=== PATIENT | male | born 1945 | race Caucasian/White ===

== ENCOUNTER 2024-11-27 12:42 | Outpatient (AMB) | payer OTHER, SELFPAY ==
--- NOTE | 2024-11-27 12:50 | A.OFFVIS_ITS ---
Vital Signs 11/27/24 12:51 Height 5 ft 10 in Weight 211 lb BMI 30.3 BP 118/72 Blood Pressure Location Rt brachial Position Sitting Intake Visit Reasons: R-SB-Idwnlui, unspecified Intake Note: Patient presents for tremors Allergies No Known Allergies Allergy (Verified 11/27/24 12:52) Medication List - Last Reconciled 11/27/24 by Noreen Dalton MD albuterol sulfate 90 mcg/actuation 1 inh inhalation QID atorvastatin 40 mg PO DAILY betamethasone dipropionate 0.05% topical DAILY ferrous sulfate (Feosol) 325 mg PO DAILY fluticasone propion-salmeterol 500-50 mcg/dose 1 inh inhalation BID ipratropium-albuterol 0.5 mg-3 mg(2.5 mg base)/3 mL 3 mL inhalation Q6H PRN lisinopril 5 mg PO DAILY mecobalamin (vitamin B12) 1,000 mcg PO DAILY omeprazole 20 mg PO DAILY sildenafil 50 mg PO DAILY PRN zafirlukast 20 mg PO BID HPI Comments Details: 79y/o Right handed male comes for evaluation of tremors. He started noticing tremors in both hands R>L about 5 years ago. He had a fall last summer and felt like his left foot was stuck and did not move. He feels his balance is worse and uses his cane more. The tremors are mostly at posture and action. He also has some leg tremors He has some trouble with handwriting, eating, drinking coffee, dressing etc. No change in voice. No memory issues. SLeep- has sleep apnea- uses CPAP- his does not like him using CPAP. Mood is stable He has urinary frequency and urgency.No family h/o tremors [facility] Medical History (Updated 11/27/24 @ 13:20 by Noreen Dalton MD) Coarse tremors Gait abnormality Tremor Ulcerative colitis Osteoarthritis FRANCESCA (obstructive sleep apnea) Mental disorder B-complex deficiency Fatty liver HTN (hypertension) BPH (benign prostatic hyperplasia) Surgical History Hx of cholecystectomy Social History Alcohol intake: never Patient Tobacco Use Status: Never used Tobacco Physical Exam Vital Signs: Last Vital Signs BP 118/72 11/27/24 12:51 BMI result Body Mass Index 30.3 Const General: cooperative and comfortable Nutritional Appearance: average body habitus Orientation/consciousness: patient oriented x3 Eyes Pupils: Equal, round and reactive pupils present Neuro Other: Nick UE postural and action tremors - mild R>L Mild cog wheel rigidity R>L FFM decreased nick Foot taps deverely decreased Gait- stooped , slow , small steps, symmetric arm swings General: patient oriented x3, moves all extremities and no focal motor deficits Cranial nerves: Yes Facial sensation intact/muscles of mastication intact, Yes Equal, round and reactive pupils present, Yes Bilaterally intact EOM present, Yes Nystagmus not present, Yes Normal facial strength present and Yes Midline tongue present Cognition (Neuro): normal cognition Gait exam (Neuro): Antalgic gait present Motor exam (neuro): 5/5 motor strength present throughout Deep tendon reflexes (DTR's): Right triceps reflex intensity grade: 3+, Left triceps reflex intensity grade: 3+, Rt Biceps (C5, C6): 2+, Left biceps reflex intensity grade: 2+, Right brachioradialis reflex intensity grade: 2+, Left brachioradialis reflex intensity grade: 2+, Right patellar reflex intensity grade: 2+ and Left patellar reflex intensity grade: 2+ Coordination: [id number] test normal Assessment & Plan Assessment & Plan (1) Coarse tremors: Comment: ? parkinsonism exaggerated physiologic tremors Code(s): G25.2 - Other specified forms of tremor Category: Medical (2) Gait abnormality: Comment: Multifactorial , musculoskeletal and neurological Code(s): R26.9 - Unspecified abnormalities of gait and mobility Category: Medical Plan MRI Brain I will trial him on carbidopa/levodopa 25/100 bid PT for gait training Orders: Orders PT Evaluation and Treatment Today R26.9 - Unspecified abnormalities of gait and mobility MR head/brain wo con Today G25.2 - Other specified forms of tremor, R26.9 - Unspecified abnormalities of gait and mobility Medications: New carbidopa-levodopa 25-100 mg (Sinemet) 1 tab PO BID 60 tabs 4RF Coding Level of Care Code New Pt Level 4 (34695) Complex EM visit Add On G2211 Diagnoses Coarse tremors G25.2 Gait abnormality R26.9
[2024-11-27 12:51] VITALS: BP 118/72; BMI 30.3
--- OUTSIDE RECORDS SUMMARY | 2024-11-27 16:36 | XMS_ITS ---
Author Name [facility] [place] Organization [facility] [employer] [place] Address [address] [place] [address] Care Team Providers Care Sketch Maker Name Role Phone YESICA HAY Primary Care Provider [facility] Insurance Providers: All historical and current Section Date Range: From patient's date of to the date document was created. This section includes the names of all active insurance providers for the patient. Insurance Provider Type of Coverage Plan Name Start of Policy Coverage End of Policy Coverage Group Number Member ID Insurance Provider's Telephone Number Policy Haque's Name Patient's Relationship to Policy Haque [employer] PLAN MEDICARE SUPPLEMEN JARED Aug 29, 2014 PLANMY [id number] [phone] FR ZACH ANCIS PATIENT AARP MED SUPP MEDICARE SUPPLEMEN JARED PLAN MY Aug 29, 2014 PLANMY [id number] [phone] FR ZACH ANCIS PATIENT AARP MED SUPP MEDICARE SUPPLEMEN JARED Aug 29, 2014 PLANMY [id number] [phone] FR ZACH ANCIS PATIENT AARP MED SUPP MEDICARE SUPPLEMEN JARED PLANM Y Aug 29, 2014 PLANMY [id number] [phone] FR ZACH ANCIS PATIENT AARP MED SUPP MEDICARE SUPPLEMEN JARED PLAN MY Aug 29, 2014 PLANMY [id number] [phone] FR ZACH ANCIS PATIENT MEDICARE (WNR) MEDICARE (M) PART B Apr 28, 2013 PART B [id number] [phone] FR ZACH ANCIS PATIENT MEDICARE (WNR) MEDICARE (M) PART B Apr 28, 2013 PART B [id number] [phone] FR BENSON SERRANO PATIENT MEDICARE (WNR) MEDICARE (M) PART B Apr 28, 2013 PART B [id number] [phone] FR BENSON SERRANO PATIENT MEDICARE (WNR) MEDICARE (M) PART A Aug 29, 2012 PART A [id number] [phone] FR BENSON SERRANO PATIENT MEDICARE (WNR) MEDICARE (M) PART A Aug 29, 2012 PART A [id number] [phone] FR BENSON SERRANO PATIENT MEDICARE (WNR) MEDICARE (M) PART A Aug 29, 2012 PART A [id number] [phone] FR BENSON SERRANO PATIENT Selected Encounter This section includes the information on record at [place] for the Encounter. Date/Time Encounter Type Encounter Description Reason Provider Source Nov 05, 2024 11:00 AM OFFICE O/P EST HI 40 MIN PRIMARY CARE/MEDICINE ICD-10-CM R25.1 Tremor, unspecified AMOS HAY AM Encounter Template Text not used by [place] Assessments - Encounter Diagnoses This section includes the primary and secondary diagnoses documented for the Encounter. Date/Time Primary/Secondary Diagnosis Diagnosis Name Provider Source Nov 26, 2024 02:57 PM PRIMARY Tremor, unspecified HAY,WILL AMBROSE J [place] [facility] [place] [facility] Nov 26, 2024 02:57 PM SECONDARY Essential (primary) hypertension HAY,WILL AMBROSE J [place] [facility] [place] [facility] Nov 26, 2024 02:57 PM SECONDARY Fatty (change of) liver, not elsewhere classified HAY,WILL AMBROSE J [place] [facility] [place] [facility] Nov 26, 2024 02:57 PM SECONDARY Moderate persistent asthma, uncomplicated HAY,WILL [facility] Nov 26, 2024 02:57 PM SECONDARY Obstructive sleep apnea (adult) (pediatric) HAY,WILL AMBROSE [place] [facility] Nov 26, 2024 02:57 PM SECONDARY Osteoarthritis of hip, unspecified HAY,WILL AMBROSE [place] [facility] Plan of Treatment: Future Appointments (+ 6 months) and Future Tests (+/- 45 days) The Plan of Treatment section includes future care activities for the patient from [facility] [place] [facility] This section includes future appointments and future orders which are active, pending or scheduled. Future Appointments This section includes appointments that were scheduled to occur 6 months from the date of the Encounter, up to a maximum of 20 appointments. The data comes from all [facility]. Appointment Date/Time Appointment Type Appointme nt Facility Name Nov 06, 2024 10:00 AM AMBULATORY - MEDICINE [facility] Nov 27, 2024 01:00 PM [facility] Jan 02, 2025 09:45 AM AMBULATORY - NONE [facility] Apr 13, 2025 10:00 AM AMBULATORY - MEDICINE [facility] Active, Pending, and Scheduled Orders This section includes a listing of several types of active, pending, and scheduled orders, including clinic medications orders, diagnostic test orders, procedure orders and consult orders; where the start date of the order is 45 days before the date of the Encounter or 45 days after the date of theEncounter. The data comes from all [facility]. Test Date/Time Test Type Test Details Facility Name Nov 10, 2024 11:21 AM Consult Order [facility] Cons Office Manager Receptionist's Choice [facility] Lab Results: +/- 30 days of the encounter This section includes the Chemistry and Hematology Lab Results on record with [place] for the patient. Radiology Reports and Pathology Reports are provided separately, in subsequent sections. Lab Results This section contains the Chemistry/Hematology Results that were resulted 30 days before or 30 daysafter the date of the Encounter. Date/Time Source Result Type Result - Unit Interpretation Reference Range Comment Oct 31, 2024 09:09 AM [facility] FERRITIN Specimen Type: SERUM No comment entered. Ordering Provider: JIAN HAY Report Released Date/Time: Oct 20, 2024 01:26 PM Reporting Lab: [facility] [address] [address] Performing Lab: [address] [address] FERRITIN 4 ng/mL L 20-300 Oct 31, 2024 09:09 AM [facility] VITAMIN B12 Specimen Type: SERUM No comment entered. Ordering Provider: JIAN HAY Report Released Date/Time: Oct 20, 2024 01:26 PM Reporting Lab: [address] [address] Performing Lab: [address] [address] VITAMIN B12 623 pg/mL 200-900 Oct 31, 2024 09:09 AM [facility] LIPID PANEL, NON FASTING Specimen Type: SERUM No comment entered. Ordering Provider: JIAN HAY Report Released Date/Time: Oct 20, 2024 01:26 PM Reporting Lab: [address] [phone] Performing Lab: [address] [address] CHOLESTEROL 153 mg/dL TRIGLYCERIDE 138 mg/dL 0-150 LDL calculated 87 mg/dL 0-129 CHOL/HDL 4.0 HDL CHOLESTEROL 38 mg/dL L 40-60 Oct 31, 2024 09:09 AM [facility] LIVER FUNCTION Specimen Type: SERUM No comment entered. Ordering Provider: JIAN HAY Report Released Date/Time: Oct 20, 2024 01:26 PM Reporting Lab: [address] [address] Performing Lab: [address] [address] PROTEIN,TOTAL 6.8 g/dL 6.0-8.3 ALBUMIN 3.8 g/dL 3.5-5.0 ALKALINE PHOSPHATASE 91 U/L 40-150 AST 20 U/L 5-34 ALT 19 U/L BILIRUBIN, TOTAL 0.5 mg/dL 0.2-1.2 Oct 31, 2024 09:09 AM [facility] BASIC METABOLIC PANEL (non-fasting) Specimen Type: SERUM No comment entered. Ordering Provider: JIAN HAY Report Released Date/Time: Oct 20, 2024 01:26 PM Reporting Lab: [address] [address] Performing Lab: [address] [address] UREA NITROGEN 19 mg/dL 7-25 GLUCOSE 105 mg/dL H 65-100 SODIUM 139 mmol/L 135-145 POTASSIUM 4.3 mmol/L 3.5-5.0 CHLORIDE 104 mmol/L 100-110 CO2 26 meq/L 20-30 CREATININE, Serum 1.11 mg/dL 0.50-1.40 eGFR(CKD-EPI 2020) 68 mL/min >60 Oct 31, 2024 09:09 AM [facility] CBC Specimen Type: BLOOD No comment entered. Ordering Provider: JIAN HAY Report Released Date/Time: Oct 20, 2024 01:26 PM Reporting Lab: [address] [address] Performing Lab: [address] [address] WBC 9.45 10*3/uL 4.50-11.00 RBC 3.91 10*6/uL L 4.23-5.66 HGB 10.9 g/dL L 12.8-17 HCT 34.3 L 39.2-50.4 MCV 87.7 fL 82-99 MCHC 31.8 g/dL 30.8-35.1 PLT 262 10*3/uL 140-360 RDW-CV 15.0 12.0-16.0 MCH 27.9 pg 26.2-32.6 Oct 31, 2024 09:09 AM [facility] IRON & TIBC PANEL Specimen Type: SERUM No comment entered. Ordering Provider: JIAN HAY Report Released Date/Time: Oct 20, 2024 01:26 PM Reporting Lab: [facility] [address] [phone] Performing Lab: [facility] [address] [phone] TIBC 428 ug/dL 204-475 IRON 40 ug/dL 40-160 Transferrin Saturation 9.4 L 20.0-50.0 Transferrin (TRF) 324 mg/dL 200-360 Vital Signs: All taken on the encounter date This section contains inpatient and outpatient Vital Signs collected on the date of the Encounter. Date/Time Temperature Pulse Blood Pressure Respiratory Rate SP02 Pain Height Weight Body Mass Index Source Nov 05, 2024 10:44 AM 98.1 98 126/72 20 99 6 69 210 31 [facility] Social History: Smoking Status (Most current) and Tobacco Use (All prior to encounter date) This section includes the most current, and the historical, smoking and tobacco- related health factors from the [place] facility where the Encounter took place. Current Smoking Status This section includes the most current smoking, or tobacco-related health factor, from the [place] facility where the Encounter took place. Date/Time Current Smoking Status Comment Ángel ity May 05, 2024 10:00 AM VA-TOBACCO FORMER USER [facility] Tobacco Use History This section includes a history of the smoking, or tobacco-related health factors, that were collected on or before the date of the Encounter. The data comes from the [place] facility where the Encounter took place. Date/Time Smoking Status/Tobacco Use Comment F acility May 05, 2024 10:00 AM VA-TOBACCO QUIT 15 YRS OR MORE [place] [facility] [place] [facility] May 03, 2023 02:00 PM VA-TOBACCO FORMER USER [place] [facility] [place] [facility] May 03, 2023 02:00 PM VA-TOBACCO QUIT [facility] May 10, 2022 01:00 PM [facility]BACCO [facility] [place] [facility] May 10, 2022 01:00 PM VA-TOBACCO QUIT 15 YRS OR MORE [facility] [place] [facility] Apr 13, 2021 09:30 AM VA-TOBACCO FORMER USER [facility] [place] [facility] Apr 13, 2021 09:30 AM VA-TOBACCO QUIT 15 YRS OR MORE [facility] [place] [facility] Feb 04, 2020 11:32 AM VA-TOBACCO FORMER USER [facility] [place] [facility] Feb 04, 2020 11:32 AM VA-TOBACCO QUIT 15 YRS OR MORE [facility] [place] [facility] March 11, 2019 03:07 PM VA-TOBACCO NEVER USED [facility] [place] [facility] Apr 01, 2018 01:21 PM QUIT TOBACCO USE > 7 YEARS AGO [facility] [place] [facility] Apr 27, 2017 08:18 AM QUIT TOBACCO USE > 7 YEARS AGO [facility] [place] [facility] May 03, 2016 08:29 AM LIFETIME NON-TOBACCO USER [facility] [place] [facility] Dec 29, 2004 09:27 AM HISTORY OF SMOKING [facility] [place] [facility] Dec 28, 2003 10:58 AM HISTORY OF SMOKING [facility] [place] [facility] Dec 08, 2002 01:22 PM HISTORY OF SMOKING [facility] [place] [facility] Jun 09, 2002 03:00 PM QUIT TOBACCO USE > 7 YEARS AGO [facility] [place] [facility] Dec 09, 2001 10:52 AM HISTORY OF SMOKING [facility] [place] [facility] Dec 09, 2001 10:52 AM NON-TOBACCO USER [place] [facility] [place] [facility] Encounter Notes: All associated encounter notes This section contains the clinical notes associated to the Encounter. Date/Time Encounter Note(s) Provider Source Nov 05, 2024 11:00 AM PRIMARY CARE NURSE PRACTITIONER OUTPATIENT NOTE: LOCAL TITLE: NURSE PRACTITIONER OUTPATIENT NOTE STANDARD TITLE: PRIMARY CARE NURSE PRACTITIONER OUTPATIENT NOTE DATE OF NOTE: NOV 05, 2024@11:00 ENTRY DATE: NOV 18, 2024@09:38:38 AUTHOR: YESICA HAY COSIGNER: URGENCY: STATUS: COMPLETED Chief complaint: Patient is a 79 year old . HPI: Pleasant male here to follow up. Allergies: Patient has answered NKA The following VA and Non-VA meds were reconciled with patient. The patient was educated on the use of the medications including indication and side effects. Active and Recently Outpatient Medications (excluding Supplies): Active Outpatient Medications Status === 1) ALBUTEROL 90MCG (CFC-F) 200D ORAL INHL INHALE 2 PUFFS BY ACTIVE MOUTH EVERY 4 HOURS NEEDED Indication: FOR BRONCHOSPASM 2) ALBUTEROL SO4 0.083% INHL 3ML INHALE 1 AMPULE IN NEBULIZER ACTIVE EVERY 4 HOURS NEEDED FOR BREATHING 3) DICLOFENAC NA 1% TOP GEL APPLY 2 GRAMS TOPICALLY FOUR TIMES ACTIVE A DAY - USE DOSING CARD PROVIDED IN BOX Indication: FOR JOINT PAIN 4) FLUTICAS 500/SALMETEROL 50 INHL DISK 60 INHALE 1 PUFF BY ACTIVE MOUTH TWICE DAILY - RINSE MOUTH AFTER USE (REPLACES SYMBICORT INHALER. DOSE ADJUSTMENT MAY BE NEEDED IF YOU DEVELOP WORSENING BREATHING SYMPTOMS. CONTACT YOUR PROVIDER) Indication: FOR BRONCHOSPASM PREVENTION WITH COPD 5) OMEPRAZOLE 20MG EC CAP TAKE TWO CAPSULES BY MOUTH EVERY ACTIVE MORNING 30 MINUTES BEFORE BREAKFAST Indication: FOR EXCESSIVE PRODUCTION OF STOMACH ACID 6) SILDENAFIL CITRATE 100MG TAB TAKE ONE TABLET BY MOUTH ACTIVE NEEDED TAKE 1 HOUR PRIOR TO SEXUAL ACTIVITY 7) ZAFIRLUKAST 20MG TAB TAKE ONE TABLET BY MOUTH TWICE DAILY ACTIVE (S) Active Non-VA Medications Status === 1) Non-VA ATORVASTATIN CALCIUM 80MG TAB 40MG BY MOUTH DAILY ACTIVE 2) Non-VA CYANOCOBALAMIN 500MCG TAB 2500MCG BY MOUTH DAILY ACTIVE 3) Non-VA FLUTICASONE NASAL SOLN,NASAL INTO EACH NOSTRIL ACTIVE 4) Non-VA LISINOPRIL 5MG TAB 5MG BY MOUTH DAILY ACTIVE 5) Non-VA LORATADINE 10MG TAB 10MG BY MOUTH DAILY ACTIVE 6) Non-VA LORATADINE 10MG TAB 10MG BY MOUTH DAILY ACTIVE 13 Total Medications Review of Systems: Constitutional: (-)for Fevers, chills, weakness, nights sweats On examination: 98.1 F [36.7 C] (11/05/2024 10:44)126/72 (11/05/2024 10:44)98 (11/05/2024 10:44)20 (11/05/2024 10:44)6 (11/05/2024 10:44)BMI: 31.1210 lb [95.25 kg] (11/05/2024 10:44) [place] is alert and oriented X3 Neck: supple without masses, trachea midline, ln not palpable, no thyromegaly Cardiovasc: 2plus carotids without bruits, no JVD Heart Reguler rate and rhythm NL S1S2 no S3 or murmur Respiration: Normal respiratory effort, lungs clear ABD: Benign normal active bowel sounds no HSM no rebound or referred pain EXT: no clubbing, edema, or cyanosis All diagnostics from past month were reviewed with patient. Assessment/plan: Active problems - Computerized Problem List is the source for the followin. Tremor - follows with [facility] 2. Osteoarthritis of hip - chronic pain, trial of diclofenac gel, he was educated on use. RMV form complete. 4. Obstructive Sleep Apnea of Adult - cpap 5. Other Ulcerative Colitis - follows GI, Dr Anne 6. Benign essential hypertension - controlled 7. Asthma - stable 8. low back pain - refer to PT Today I spent 40 minutes on some or all of the following: chart review, history, physical examination, treatment planning, education and counseling of the patient/family/dog day care attendant, placing orders, communicating with other health care providers, completing health and wellness screenings (see below) and documentation in the electronic health record. Follow up visit in 6 mos. Medication Reconciliation: Outpatient: Has the patient been taking medications as documented in the EMLR? YES: The patient has been taking medications as documented in the EMLR. Essential Medication List for Review used to complete this medication reconciliation. INCLUDED IN THIS LIST: Alphabetical list of active outpatient prescriptions dispensed from this [place] (local) and dispensed from another [place] or [facility] facility (remote) as well as inpatient orders (local, pending and active), local clinic medications, locally documented non-VA medications, and local prescriptions that have or been discontinued in the past 90 days. - All changes in medications, including all non-VA/Herbal/OTC medications were entered into CPRS. - If there were any medications the patient should no longer take, they were discontinued. - The patient/caregiver was instructed to update this list, discard old lists, and take this list to the next appointment, whether with a VA or non-VA provider. /lizzie/ Yesica Hay DNP, GUIDE TRAVEL-BC, CNL Primary Care Nurse Practitioner Signed: 11/18/2024 09:46 YESICA HAY [place] [facility] [place] [facility] Nov 05, 2024 10:51 AM PREVENTIVE MEDICINE NURSING NOTE: LOCAL TITLE: CLINICAL REMINDERS/NURSING STANDARD TITLE: PREVENTIVE MEDICINE NURSING NOTE DATE OF NOTE: NOV 05, 2024@10:51 ENTRY DATE: NOV 05, 2024@10:51:06 AUTHOR: RAFFI OLSEN COSIGNER: URGENCY: STATUS: COMPLETED CLINICAL REMINDERS/NURSING Has ADDENDA Advance Directive Screen MH AD: Patient does not have an Advance Directive completed and is requesting more information. A consult was sent to Social Work Services at this visit so that an appointment can be made with the patient to review the advance directive. The patient received education about Advance Directives and written notification of his/her rights. RHS Screen: RHS Screen Session Format: Face to Face Environmental Check Upon inquiry, the individual reports that the environment is safe to proceed. Informed Consent to Screen and Document The individual consents to proceed with screening. The individual consents to documentation of responses. PRIMARY SCREEN: In the past 12 months, how often did a current or former intimate partner (e.g., boyfriend, girlfriend, , , sexual partner): 1. Scream or curse at you Never 2. Insult or talk down to you Never 3. Threaten you with harm Never 4. Physically hurt you Never 5. Force or pressure you to have sexual contact against your will, or when you were unable to say no Never ?? The HITS tool (items 1-4 above) is [place] copyright protected by Giuliano Maurer MD, and the user has full rights to use it throughout the [place] system. PRIMARY SCREEN RESULT: The Primary Screen is NEGATIVE. The individual answered never to all forms of IPV above (i.e., answered never to all 5 items) The individual accepts education and/or resources: No EDUCATION: Other: NOT INTERESTED AT THIS TIME /lizzie/ Raffi Olsen Health Policeman MANAGER BALANCE,PRIMARY CARE Signed: 11/05/2024 10:52 11/05/2024 ADDENDUM STATUS: COMPLETED Influenza Immunization: The patient has received the seasonal influenza vaccine for the current season at another location. Documented: INFLUENZA, UNSPECIFIED FORMULATION Historical Date Administered: Aug 07, 2024 Outside Location: Outside Healthcare Provider Information Source: FROM PATIENT'S RECALL Comment: per statement from vet COVID-19 Immunization: Vaccine given previously - no written/electronic documentation available Comment: vet acknowledge instructions. The patient was instructed to bring a copy of their COVID-19 vaccine information to their next appointment so that this can be accurately recorded in their [place] medical record. /lizz Olsen Health Policeman MANAGER BALANCE,PRIMARY CARE Signed: 11/05/2024 11:10 RAFFI OLSEN [place] [facility]
--- OUTSIDE RECORDS SUMMARY | 2024-11-27 16:36 | XMS_ITS ---
Author Name [facility] [place] Organization [facility] [place] Address [address] [place] [address] Care Team Providers Care Ditcher Operator Name Role Phone MORRO HAY Primary Care Provider [facility] Insurance Providers: All historical and current [...] MEDICARE SUPPLEMEN JARED Aug 29, 2014 PLANMY [id number] [phone] FR ZACH ANCIS PATIENT AARP MED SUPP MEDICARE SUPPLEMEN JARED PLAN MY Aug 29, 2014 PLANMY [id number] [phone] FR ZACH ANCIS PATIENT AARP MED SUPP MEDICARE SUPPLEMEN JARED Aug 29, 2014 PLANMY [id number] [phone] FR ZACH ANCIS PATIENT AARP MED SUPP MEDICARE SUPPLEMEN JARED PLANM Y Aug 29, 2014 PLAN [id number] [phone] FR ZACH ANCIS PATIENT AARP MED SUPP MEDICARE SUPPLEMEN JARED PLAN MY Aug 29, 2014 PLANMY [id number] [phone] FR ZACH ANCIS PATIENT MEDICARE (WNR) MEDICARE (M) PART B Apr 28, 2013 PART B [id number] [phone] FR ZACH ANCIS PATIENT MEDICARE (WNR) MEDICARE (M) PART B Apr 28, 2013 PART B [id number] [phone] FR BENSON SERRANO PATIENT MEDICARE (WNR) MEDICARE (M) PART B Apr 28, 2013 PART B [id number] [phone] FR BENSON SERRANO PATIENT MEDICARE (WNR) MEDICARE (M) PART A Aug 29, 2012 PART A [id number] [phone] FR BENSON SERRANO PATIENT MEDICARE (WNR) MEDICARE (M) PART A Aug 29, 2012 PART A [id number] [phone] FR BENSON SERRANO PATIENT MEDICARE (WNR) MEDICARE (M) PART A Aug 29, 2012 PART A [id number] [phone] FR BENSON SERRANO PATIENT Selected Encounter This section includes the information on record at [place] for the Encounter. Date/Time Encounter Type Encounter Description Reason Provider Source May 05, 2024 10:00 AM OFFICE O/P EST MOD 30 MIN PRIMARY CARE/MEDICINE ICD-10-CM M16.9 Osteoarthritis of hip, unspecified HAY,WILL AMBROSE J [facility] Encounter Template Text not used by [place] Assessments - Encounter Diagnoses This section includes the primary and secondary diagnoses documented for the Encounter. Date/Time Primary/Secondary Diagnosis Diagnosis Name Provider Source May 31, 2024 09:03 AM PRIMARY Osteoarthritis of hip, unspecified HAY,WILL AMBROSE J [facility] [place] [facility] May 31, 2024 09:03 AM SECONDARY Anemia, unspecified HAY,WILL AMBROSE J [facility] [place] [facility] May 31, 2024 09:03 AM SECONDARY Essential (primary) hypertension HAY,WILL AMBRSOE J [facility] [place] [facility] May 31, 2024 09:03 AM SECONDARY Moderate persistent asthma, uncomplicated HAY,WILL AMBROSE J [facility] May 31, 2024 09:03 AM SECONDARY Obstructive sleep apnea (adult) (pediatric) JIAN HAY [facility] May 31, 2024 09:03 AM SECONDARY Tremor, unspecified JIAN HAY [facility] Plan of Treatment: Future Appointments (+ 6 months) and Future Tests (+/- 45 days) The Plan of Treatment section includes future care activities for the patient from all [facility] This section includes future appointments and future orders which are active, pending or scheduled. Future Appointments This section includes appointments that were scheduled to occur 6 months from the date of the Encounter, up to a maximum of 20 appointments. The data comes from all [place] treatment facilities. Appointment Date/Time Appointment Type Appointme nt Facility Name May 14, 2024 09:00 AM AMBULATORY - NONE [facility] Jul 04, 2024 02:15 PM AMBULATORY - NONE [facility] Nov 05, 2024 11:00 AM [facility] - [facility] Active, Pending, and Scheduled Orders This section includes a listing of several types of active, pending, and scheduled orders, including clinic medications orders, diagnostic test orders, procedure orders and consult orders; where the start date of the order is 45 days before the date of the Encounter or 45 days after the date of theEncounter. The data comes from all [facility] facilities. Test Date/Time Test Type Test Details Facility Name May 05, 2024 10:30 AM Consult Order COMMUNITY CARE-NEUROLOGY Cons Sand System Operator's Choice [facility] Lab Results: +/- 30 days of the encounter This section includes the Chemistry and Hematology Lab Results on record with [place] for the patient. Radiology Reports and Pathology Reports are provided separately, in subsequent sections. Lab Results This section contains the Chemistry/Hematology Results that were resulted 30 days before or 30 daysafter the date of the Encounter. Date/Time Source Result Type Result - Unit Interpretation Reference Range Comment May 05, 2024 10:45 AM [facility] VITAMIN B12 Specimen Type: SERUM No comment entered. Ordering Provider: JIAN HAY Report Released Date/Time: May 05, 2024 10:21 AM Reporting Lab: [facility] [address] [address] Performing Lab: [facility] [address] [address] VITAMIN B12 885 pg/mL 200-900 May 05, 2024 10:45 AM [facility] FERRITIN Specimen Type: SERUM No comment entered. Ordering Provider: JIAN HAY Report Released Date/Time: May 05, 2024 10:21 AM Reporting Lab: [facility] [address] [address] Performing Lab: [facility] [address] [address] FERRITIN 57 ng/mL 20-300 May 05, 2024 10:45 AM [facility] IRON & TIBC PANEL Specimen Type: SERUM No comment entered. Ordering Provider: JIAN HAY Report Released Date/Time: May 05, 2024 10:21 AM Reporting Lab: [facility] [address] [address] Performing Lab: [facility] [address] [address] TIBC 381 ug/dL 204-475 IRON 58 ug/dL 40-160 Transferrin Saturation 15.2 L 20.0-50.0 May 05, 2024 10:45 AM [facility] CBC AND DIFF (AUTO) Specimen Type: BLOOD No comment entered. Ordering Provider: JIAN HAY Report Released Date/Time: May 05, 2024 10:21 AM Reporting Lab: [facility] [address] [address] Performing Lab: [facility] [address] [address] WBC 7.90 10*3/uL 4.50-11.00 RBC 4.05 10*6/uL L 4.23-5.66 HGB 12.0 g/dL L 12.8-17 HCT 37.1 L 39.2-50.4 MCV 91.6 fL 82-99 MCHC 32.3 g/dL 30.8-35.1 PLT 235 10*3/uL 140-360 RDW-CV 13.9 12.0-16.0 MONO, ABS 0.61 10*3/uL 0.30-1.10 MCH 29.6 pg 26.2-32.6 NEUT % 72.8 43.7-75.8 LYMPH % 14.3 14.0-42.3 MONO % 7.7 5.1-13.7 EOS % 4.1 0.4-6.8 BASO % 0.5 0.1-2.0 NEUT, ABS 5.75 10*3/uL 2.20-7.60 LYMPH, ABS 1.13 10*3/uL 1.00-3.20 EOS, ABS 0.32 10*3/uL 0.03-0.44 BASO, ABS 0.04 10*3/uL 0.01-0.13 IMMATURE GRAN % 0.6 0.0-0.7 IMMATURE GRAN, ABS 0.05 10*3/uL 0.00-0.06 NRBC % 0.0 0.0-0.0 NRBC, ABS 0.00 10*3/uL 0.00-0.00 Apr 28, 2024 08:38 AM [facility] CBC Specimen Type: BLOOD No comment entered. Ordering Provider: JIAN HAY Report Released Date/Time: Apr 23, 2024 09:49 AM Reporting Lab: [facility] [address] [address] Performing Lab: [facility] [address] [address] WBC 7.77 10*3/uL 4.50-11.00 RBC 3.98 10*6/uL L 4.23-5.66 HGB 11.9 g/dL L 12.8-17 HCT 36.9 L 39.2-50.4 MCV 92.7 fL 82-99 MCHC 32.2 g/dL 30.8-35.1 PLT 231 10*3/uL 140-360 RDW-CV 14.2 12.0-16.0 MCH 29.9 pg 26.2-32.6 Apr 28, 2024 08:38 AM [facility] LIPID PANEL, NON FASTING Specimen Type: SERUM No comment entered. Ordering Provider: JIAN HAY Report Released Date/Time: Apr 23, 2024 09:49 AM Reporting Lab: [address] [address] Performing Lab: [address] [address] CHOLESTEROL 166 mg/dL TRIGLYCERIDE 127 mg/dL 0-150 LDL calculated 98 mg/dL 0-129 CHOL/HDL 3.9 HDL CHOLESTEROL 43 mg/dL 40-60 Apr 28, 2024 08:38 AM [facility] BASIC METABOLIC PANEL (non-fasting) Specimen Type: SERUM No comment entered. Ordering Provider: JIAN HAY Report Released Date/Time: Apr 23, 2024 09:49 AM Reporting Lab: [address] [address] Performing Lab: [address] [address] UREA NITROGEN 22 mg/dL 7-25 GLUCOSE 102 mg/dL H 65-100 SODIUM 137 mmol/L 135-145 POTASSIUM 4.3 mmol/L 3.5-5.0 CHLORIDE 102 mmol/L 100-110 CO2 26 meq/L 20-30 CREATININE, Serum 1.15 mg/dL 0.50-1.40 eGFR(CKD-EPI 2020) 66 mL/min >60 Apr 28, 2024 08:38 AM [facility] LIVER FUNCTION Specimen Type: SERUM No comment entered. Ordering Provider: JIAN HAY Report Released Date/Time: Apr 23, 2024 09:49 AM Reporting Lab: [address] [address] Performing Lab: [address] [address] PROTEIN,TOTAL 6.9 g/dL 6.0-8.3 ALBUMIN 3.9 g/dL 3.5-5.0 ALKALINE PHOSPHATASE 84 U/L 40-150 AST 20 U/L 5-34 ALT 24 U/L BILIRUBIN, TOTAL 0.5 mg/dL 0.2-1.2 Vital Signs: All taken on the encounter date This section contains inpatient and outpatient Vital Signs collected on the date of the Encounter. Date/Time Temperature Pulse Blood Pressure Respiratory Rate SP02 Pain Height Weight Body Mass Index Source May 05, 2024 10:26 AM 138/76 [facility] [place] [facility] May 05, 2024 10:03 AM 98.4 100 149/83 20 96 5 69 213 32 [facility] [place] [facility] Social History: Smoking Status (Most current) and Tobacco Use (All prior to encounter date) This section includes the most current, and the historical, smoking and tobacco- related health factors from the [place] facility where the Encounter took place. Current Smoking Status This section includes the most current smoking, or tobacco-related health factor, from the [place] facility where the Encounter took place. Date/Time Current Smoking Status Comment Ángel ity May 05, 2024 10:00 AM VA-TOBACCO FORMER USER [facility] [place] [facility] Tobacco Use History This section includes a history of the smoking, or tobacco-related health factors, that were collected on or before the date of the Encounter. The data comes from the [place] facility where the Encounter took place. Date/Time Smoking Status/Tobacco Use Comment F acility May 05, 2024 10:00 AM VA-TOBACCO QUIT 15 YRS OR MORE [facility] [place] [facility] May 03, 2023 02:00 PM VA-TOBACCO FORMER USER [facility] [place] [facility] May 03, 2023 02:00 PM VA-TOBACCO QUIT 15 YRS OR MORE [facility] [place] [facility] May 10, 2022 01:00 PM VA-TOBACCO FORMER USER [facility] [place] [facility] May 10, 2022 01:00 PM VA-TOBACCO QUIT 15 YRS OR MORE [facility] [place] [facility] Apr 13, 2021 09:30 AM VA-TOBACCO FORMER USER [facility] [place] [facility] Apr 13, 2021 09:30 AM VA-TOBACCO QUIT 15 YRS OR MORE [facility] [place] [facility] Feb 04, 2020 11:32 AM VA-TOBACCO FORMER USER [facility] [place] [facility] Feb 04, 2020 11:32 AM VA-TOBACCO QUIT 15 YRS OR MORE [facility] [place] [facility] March 11, 2019 03:07 PM VA-TOBACCO NEVER USED [facility] [place] [facility] Apr 01, 2018 01:21 PM QUIT TOBACCO USE > 7 YEARS AGO [facility] [place] [facility] Apr 27, 2017 08:18 AM QUIT TOBACCO USE > 7 YEARS AGO [facility] [place] [facility] May 03, 2016 08:29 AM LIFETIME NON-TOBACCO USER [facility] [place] [facility] Dec 29, 2004 09:27 AM HISTORY OF SMOKING [facility] [place] [facility] Dec 28, 2003 10:58 AM HISTORY OF SMOKING [facility] [place] [facility] Dec 08, 2002 01:22 PM HISTORY OF SMOKING [facility] [place] [facility] Jun 09, 2002 03:00 PM QUIT TOBACCO USE > 7 YEARS AGO [facility] [place] [facility] Dec 09, 2001 10:52 AM HISTORY OF SMOKING [facility] [place] [facility] Dec 09, 2001 10:52 AM NON-TOBACCO USER [facility] [place] [facility] Encounter Notes: All associated encounter notes This section contains the clinical notes associated to the Encounter. Date/Time Encounter Note(s) Provider Source May 13, 2024 12:50 PM PRIMARY CARE NURSE PRACTITIONER OUTPATIENT NOTE: LOCAL TITLE: NURSE PRACTITIONER OUTPATIENT NOTE STANDARD TITLE: PRIMARY CARE NURSE PRACTITIONER OUTPATIENT NOTE DATE OF NOTE: MAY 13, 2024@12:50 ENTRY DATE: MAY 13, 2024@12:50:21 AUTHOR: MORRO HAY EXP COSIGNER: URGENCY: STATUS: COMPLETED T/C to , discussed CBC and iron studies, will recheck in 6 mos. /lizzie/ Morro Hay DNP, [place] BAILIFF-BC, CNL Primary Care Nurse Practitioner Signed: 05/13/2024 12:50 MORRO HAY [facility] [place] [facility] May 05, 2024 10:21 AM PRIMARY CARE NURSE PRACTITIONER OUTPATIENT NOTE: LOCAL TITLE: NURSE PRACTITIONER OUTPATIENT NOTE STANDARD TITLE: PRIMARY CARE NURSE PRACTITIONER OUTPATIENT NOTE DATE OF NOTE: MAY 05, 2024@10:21 ENTRY DATE: MAY 05, 2024@10:21:23 AUTHOR: MORRO HAY COSIGNER: URGENCY: STATUS: COMPLETED Chief complaint: Patient is a 78 year old . HPI: Pleasant male Warren here to follow up. He is concerned about a worsening upper ext tremor, some balance issues. Now having difficulty writing. Will refer to neuro. Allergies: Patient has answered NKA The following VA and Non-VA meds were reconciled with patient. The patient was educated on the use of the medications including indication and side effects. Active and Recently Outpatient Medications (excluding Supplies): Active Outpatient Medications Status 1) ALBUTEROL 100/IPRATRO 20MCG 120D PO INHL INHALE 1 ACTIVE PUFF BY MOUTH EVERY 4 HOURS NEEDED 2) ALBUTEROL SO4 0.083% INHL 3ML INHALE 1 AMPULE IN ACTIVE NEBULIZER EVERY 4 HOURS NEEDED FOR BREATHING 3) FLUTICAS 500/SALMETEROL 50 INHL DISK 60 INHALE 1 PUFF ACTIVE BY MOUTH TWICE DAILY - RINSE MOUTH AFTER USE (REPLACES SYMBICORT INHALER. DOSE ADJUSTMENT MAY BE NEEDED IF YOU DEVELOP WORSENING BREATHING SYMPTOMS. CONTACT YOUR PROVIDER) 4) OMEPRAZOLE 20MG EC CAP TAKE ONE CAPSULE BY MOUTH ACTIVE TWICE DAILY 5) SILDENAFIL CITRATE 100MG TAB TAKE ONE TABLET BY MOUTH ACTIVE NEEDED TAKE 1 HOUR PRIOR TO SEXUAL ACTIVITY 6) ZAFIRLUKAST 20MG TAB TAKE ONE TABLET BY MOUTH TWICE ACTIVE DAILY Active Non-VA Medications Status 1) Non-VA ATORVASTATIN CALCIUM 80MG TAB 40MG BY MOUTH ACTIVE DAILY 2) Non-VA CYANOCOBALAMIN 500MCG TAB 2500MCG BY MOUTH ACTIVE DAILY 3) Non-VA FLUTICASONE NASAL SOLN,NASAL INTO EACH ACTIVE NOSTRIL 4) Non-VA LISINOPRIL 5MG TAB 5MG BY MOUTH DAILY ACTIVE 5) Non-VA LORATADINE 10MG TAB 10MG BY MOUTH DAILY ACTIVE 11 Total Medications Review of Systems: Constitutional: (-)for Fevers, chills, weakness, nights sweats On examination: 98.4 F [36.9 C] (05/05/2024 10:03)149/83 (05/05/2024 10:03)100 (05/05/2024 10:03)20 (05/05/2024 10:03)5 (05/05/2024 10:03)BMI: 31.5213 lb [96.62 kg] (05/05/2024 10:03) is alert and oriented X3 Cardiovasc: 2plus carotids without bruits, no JVD Heart Reguler rate and rhythm NL S1S2 no S3 or murmur Respiration: Normal respiratory effort, lungs clear ABD: Benign normal active bowel sounds no HSM no rebound or referred pain EXT: no clubbing, edema, or cyanosis Neuro: gross upper ext tremor, right much more pronounced All diagnostics from past month were reviewed with patient. Assessment/plan: Active problems - Computerized Problem List is the source for the followin. Osteoarthritis of hip - right hip, chronic, uses cane at times 2. Obstructive Sleep Apnea of Adult (SCT 6316714051123) - uses cpap 3. Vitamin B 12 Deficiency - checking B12 4. anemia - recheck CBC with iron studies today 5. Benign essential hypertension (SNOMED CT 5056768) - 138/76 6. Asthma (SNOMED CT 059361991) - stable, follows muna Vora 7. Hyperlipidemia (SNOMED CT 79344573) - controlled on statin Review of medial record = 5mins Time spent with Patient including shared decision making = 20 mins Post visit documentation = 5mins Total time = 30 mins Follow up visit in 6 mos. Alert to PACT RN - Labs as necessary to address clinical status. HTN Assess for Elevated BP>=140/90: Repeat blood pressure: 138/76 The patient's blood pressure is usually adequately controlled. No medication changes are indicated at this time. Medication Reconciliation: Outpatient: Has the patient been taking medications as documented in the EMLR? YES: The patient has been taking medications as documented in the EMLR. Essential Medication List for Review used to complete this medication reconciliation. INCLUDED IN THIS LIST: Alphabetical list of active outpatient prescriptions dispensed from this [place] (local) and dispensed from another VA or [facility]D facility (remote) as well as inpatient orders [...] with a VA or non-VA provider. /lizzie/ Morro Hay DNP, [place] BAILIFF-BC, CNL Primary Care Nurse Practitioner Signed: 05/05/2024 10:27 MORRO HAY [facility] [place] [facility] May 05, 2024 10:06 AM PREVENTIVE MEDICINE NURSING NOTE: LOCAL TITLE: CLINICAL REMINDERS/NURSING STANDARD TITLE: PREVENTIVE MEDICINE NURSING NOTE DATE OF NOTE: MAY 05, 2024@10:06 ENTRY DATE: MAY 05, 2024@10:06:59 AUTHOR: RAFFI OLSEN COSIGNER: URGENCY: STATUS: COMPLETED Suicide Screen: C-SSRS Screening [place]-Suicide Severity Rating Scale (C-SSRS Screener) 1. Over the past month, have you wished you were or wished you could go to sleep and not wake up? No 2. Over the past month, have you had any actual thoughts of killing yourself? No 3. Over the past month, have you been thinking about how you might do this? Response not required due to responses to other questions. 4. Over the past month, have you had these thoughts and had some intention of acting on them? Response not required due to responses to other questions. 5. Over the past month, have you started to work out or worked out the details of how to kill yourself? Response not required due to responses to other questions. 6. If yes, at any time in the past month did you intend to carry out this plan? Response not required due to responses to other questions. 7. In your lifetime, have you ever done anything, started to do anything, or prepared to do anything to end your life (for example, collected pills, obtained a gun, gave away valuables, went to the roof but didn't jump)? No 8. If YES, was this within the past 3 months? Response not required due to responses to other questions. Homelessness/Food Insecurity Screen: In the past 2 months, have you been living in stable housing that you own, rent, or stay in as part of a household? Yes - Living in stable housing. Are you worried or concerned that in the next 2 months you may NOT have stable housing that you own, rent, or stay in as part of a household? No - Not worried about housing near future The reports the following: Within the past 12 months, you worried whether your food would run out before you got money to buy more. Never true Within the past 12 months, the food you bought just didn't last and you didn't have money to get more. Never true Depression Screening: Perform PHQ-2 A PHQ-2 screen was performed. The score was 0 which is a negative screen for depression. Over the past two weeks, how often have you been bothered by the following problems? 1. Little interest or pleasure in doing things Not at all 2. Feeling down, depressed, or hopeless Not at all Falls & Incontinence Screen: Falls Screen: During the past 12 months, did the patient report any falls? 4. No falls within the past year. Incontinence Screen: During the past 12 months, has the patient has any characteristics of incontinence (ability, voiding, leakage, etc.)? No incontinence. Tobacco Use Screening: The patient is a former tobacco user. The patient quit fifteen or more years ago. Alcohol Use Screen (AUDIT-C): Alcohol Screen: SCREEN FOR ALCOHOL (AUDIT-C) An alcohol screening test (AUDIT-C) was negative (score=0). 1. How often did you have a drink containing alcohol in the past year? Consider a drink to be a 12 ounce can or bottle of regular beer, 8 ounces of malt liquor, a 5 ounce glass of table wine, or a 1.5 ounce shot of liquor (like scotch, gin, or vodka). Never 2. How many drinks containing alcohol did you have on a typical day when you were drinking in the past year? Response not required due to responses to other questions. 3. How often did you have six or more drinks on one occasion in the past year? Response not required due to responses to other questions. /lizzie/ Raffi Olsen [employer] Supervisor SUPERVISOR PYROTECHNIC LOADING,PRIMARY CARE Signed: 05/05/2024 10:08 [facility]
--- OUTSIDE RECORDS SUMMARY | 2024-11-27 16:36 | XMS_ITS ---
Author Name [facility] [place] [facility] [place] Address [address] [place] [address] Care Team Providers Care Paint Line Supervisor Name Role Phone YESICA KANG Primary Care Provider Lee singer Insurance Providers: All historical and current Section [...] MEDICARE SUPPLEMEN JARED Aug 29, 2014 PLANMY [id number] [phone] FR ZACH ANCIS PATIENT AARP MED SUPP MEDICARE SUPPLEMEN JARED PLAN MY Aug 29, 2014 PLANMY [id number] [phone] FR ZACH ANCIS PATIENT AARP MED SUPP MEDICARE SUPPLEMEN JARED Aug 29, 2014 PLANMY [id number] [phone] FR ZACH ANCIS PATIENT AARP MED SUPP MEDICARE SUPPLEMEN JARED PLANM Y Aug 29, 2014 PLAN [id number] [phone] FR ZACH ANCIS PATIENT AARP MED SUPP MEDICARE SUPPLEMEN JARED PLAN MY Aug 29, 2014 PLANORA [id number] [phone] FR BENSON SERRANO PATIENT MEDICARE (WNR) MEDICARE (M) PART B Apr 28, 2013 PART B [id number] [phone] FR BENSON SERRANO PATIENT MEDICARE (WNR) MEDICARE (M) PART B Apr 28, 2013 PART B [id number] [phone] FR CINDY SERRANOIS PATIENT MEDICARE (WNR) MEDICARE (M) PART B Apr 28, 2013 PART B [id number] [phone] FR BENSON SERRANO PATIENT MEDICARE (WNR) MEDICARE (M) PART A Aug 29, 2012 PART A [id number] [phone] FR BENSON SERRANO PATIENT MEDICARE (WNR) MEDICARE (M) PART A Aug 29, 2012 PART A [id number] [phone] FR BENSON SERRANO PATIENT MEDICARE (WNR) MEDICARE (M) PART A Aug 29, 2012 PART A [id number] [phone] FR BENSON SERRANO PATIENT Selected Encounter This section includes the information on record at [place] for the Encounter. Date/Time Encounter Type Encounter Description Reason Pro vider Source Jan 31, 2024 12:57 PM Outpatient Encounter ADMIN PAT ACTIVTIES (MASNONCT) IHE Encounter Template Text not used by [place] Plan of Treatment: Future Appointments (+ 6 months) and Future Tests (+/- 45 days) The Plan of Treatment section includes future care activities for the patient from all [place] treatmentfacilities. This section includes future appointments and future orders which are active, pending or scheduled. Future Appointments This section includes appointments that were scheduled to occur 6 months from the date of the Encounter, up to a maximum of 20 appointments. The data comes from all [place] treatment facilities. Appointment Date/Time Appointment Type Appointme nt Facility Name Apr 11, 2024 10:00 AM AMBULATORY - MEDICINE [place] [facility] [place] [facility] May 05, 2024 10:00 AM AMBULATORY - MEDICINE [place] [facility] [place] [facility] May 14, 2024 09:00 AM AMBULATORY - NONE [place] [facility] [place] [facility] Jul 04, 2024 02:15 PM AMBULATORY - NONE [facility] [place] [facility] Social History: Smoking Status (Most current) and Tobacco Use (All prior to encounter date) This section includes the most current, and the historical, smoking and tobacco- related health factors from the [place] facility where the Encounter took place. Current Smoking Status This section includes the most current smoking, or tobacco-related health factor, from the [place] facility where the Encounter took place. Date/Time Current Smoking Status Comment Facil ity May 03, 2023 02:00 PM VA-TOBACCO QUIT 15 YRS OR MORE [place] [facility] [place] [facility] Tobacco Use History This section includes a history of the smoking, or tobacco-related health factors, that were collected on or before the date of the Encounter. The data comes from the [place] facility where the Encounter took place. Date/Time Smoking Status/Tobacco Use Comment F acbeatriz May 03, 2023 02:00 PM VA-TOBACCO QUIT 15 YRS OR MORE [facility] [place] [facility] May 10, 2022 01:00 PM VA-TOBACCO FORMER USER [facility] [place] [facility] May 10, 2022 01:00 PM VA-TOBACCO QUIT 15 YRS OR MORE [facility] [place] [facility] Apr 13, 2021 09:30 AM VA-TOBACCO FORMER USER [facility] [place] [facility] Apr 13, 2021 09:30 AM VA-TOBACCO QUIT 15 YRS OR MORE [facility] [place] [facility] Feb 04, 2020 11:32 AM VA-TOBACCO FORMER USER [facility] [place] [facility] Feb 04, 2020 11:32 AM VA-TOBACCO QUIT 15 YRS OR MORE [facility] [place] [facility] March 11, 2019 03:07 PM VA-TOBACCO NEVER USED [facility] [place] [facility] Apr 01, 2018 01:21 PM QUIT TOBACCO USE > 7 YEARS AGO [facility] [place] [facility] Apr 27, 2017 08:18 AM QUIT TOBACCO USE > 7 YEARS AGO [facility] [place] [facility] May 03, 2016 08:29 AM LIFETIME NON-TOBACCO USER [facility] [place] [facility] Dec 29, 2004 09:27 AM HIST[facility] SMO[facility] Dec 28, 2003 10:58 AM HISTORY OF SMOKING [facility] Dec 08, 2002 01:22 PM HISTORY OF SMOKING [facility] Jun 09, 2002 03:00 PM QUIT TOBACCO USE > 7 YEARS AGO [facility] Dec 09, 2001 10:52 AM [facility] OF [facility]MOKING [facility] Dec 09, 2001 10:52 AM NON-TOBACCO USER [facility] Encounter Notes: All associated encounter notes This section contains the clinical notes associated to the Encounter. Date/Time Encounter Note(s) Provider Source Jan 31, 2024 12:57 PM PHARMACY NOTE: LOCAL TITLE: V1 PHARMACY CUSTOMER CARE MEDICATION RENEWAL STANDARD TITLE: PHARMACY NOTE DATE OF NOTE: JAN 31, 2024@12:57 ENTRY DATE: JAN 31, 2024@12:57:39 AUTHOR: ANTOINE MARIO EXP COSIGNER: URGENCY: STATUS: COMPLETED PHARMACY CUSTOMER CARE MEDICATION RENEWAL Has ADDENDA Date: Jan Division: [place] [facility] referred by Pharmacy Call Center for medication renewal: Non-controlled/maintenan ce medication Medications requested: [id number] OMEPRAZOLE 20MG EC CAP Defer to primary care provider To be mailed . Please review and renew if appropriate. *This note was generated by [facility] Pharm[facility] Customer Care. If you have any questions or need assistance, do not contact this author. Please refer all questions to your local, on-site pharmacy departments. /lizzie/ ANTOINE MARIO [facility] Revenue Collector, [place]/Pharmacy Customer Care Signed: 01/31/2024 12:57 Receipt Acknowledged By: 01/31/2024 14:35 /lizzie/ JOHANNA JONES MS,OSMIN PHYSICIAN MANAGER SHIFT for YESICA KANG 01/31/2024 13:00 /lizzie/ Iliana Jc MSN RN CNL Primary Care RN 01/31/2024 ADDENDUM STATUS: COMPLETED Renewed for brass pickler /lizz JONES MS,OSMIN PHYSICIAN MANAGER SHIFT Signed: 01/31/2024 14:37 [facility]INE MARIO [facility]
--- OUTSIDE RECORDS SUMMARY | 2024-11-27 16:36 | XMS_ITS ---
Author Name [facility] [place] [place] Organization [facility] [place] Address [address] [place] [address] Care Team Providers Care Plodding Operator Name Role Phone MORRO HAY [facility] Insurance Providers: All historical and current [...] PLAN MEDICARE SUPPLEMEN JARED Aug 29, 2014 PLAN [id number] [phone] FR ZACH ANCIS PATIENT AARP MED SUPP MEDICARE SUPPLEMEN JARED PLANM Y Aug 29, 2014 PLANMY [id number] [phone] FR ZACH ANCIS PATIENT AARP MED SUPP MEDICARE SUPPLEMEN JARED Aug 29, 2014 PLANMY [id number] [phone] FR ZACH ANCIS PATIENT AARP MED SUPP MEDICARE SUPPLEMEN JARED PLAN MY Aug 29, 2014 PLAN [id number] [phone] FR ZACH ANCIS PATIENT AARP MED SUPP MEDICARE SUPPLEMEN JARED PLAN MY Aug 29, 2014 PLANMY [id number] [phone] FR BENSON SERRANO PATIENT MEDICARE (WNR) MEDICARE (M) PART B Apr 28, 2013 PART B [id number] [phone] FR BENSON SERRANO PATIENT MEDICARE (WNR) MEDICARE (M) PART B Apr 28, 2013 PART B [id number] [phone] FR BENSON SERRANO PATIENT MEDICARE (WNR) MEDICARE (M) PART B Apr 28, 2013 PART B [id number] [phone] FR BENSON SERRANO PATIENT MEDICARE (WNR) MEDICARE (M) PART A Aug 29, 2012 PART A [id number] [phone] FR BENSON SERRANO PATIENT MEDICARE (WNR) MEDICARE (M) PART A Aug 29, 2012 PART A [id number] [phone] FR BENSON SERRANO PATIENT MEDICARE (WNR) MEDICARE (M) PART A Aug 29, 2012 PART A [id number] [phone] FR BENSON SERRANO PATIENT Selected Encounter This section includes the information on record at [place] for the Encounter. Date/Time Encounter Type Encounter Description Reason Pro vider Source Jul 21, 2024 05:47 PM Outpatient Encounter ADMIN PAT ACTIVTIES (MASNONCT) IHE Encounter Template Text not used by [place] Plan of Treatment: Future Appointments (+ 6 months) and Future Tests (+/- 45 days) The Plan of Treatment section includes future care activities for the patient from all [place] treatmentfacilities. This section includes future appointments and future orders which are active, pending or scheduled. Future Appointments This section includes appointments that were scheduled to occur 6 months from the date of the Encounter, up to a maximum of 20 appointments. The data comes from all [place] treatment facilities. Appointment Date/Time Appointment Type Appointme nt Facility Name Nov 05, 2024 11:00 AM AMBULATORY - MEDICINE [place] [facility] [place] [facility] Nov 06, 2024 10:00 AM AMBULATORY - MEDICINE [facility] [place] [facility] Nov 27, 2024 01:00 PM AMBULATORY - MEDICINE [place] [facility] [place] [facility] Jan 02, 2025 09:45 AM AMBULATORY - NONE [place] [facility] [place] [facility] Active, Pending, and Scheduled Orders This section includes a listing of several types of active, pending, and scheduled orders, including clinic medications orders, diagnostic test orders, procedure orders and consult orders; where the start date of the order is 45 days before the date of the Encounter or 45 days after the date of theEncounter. The data comes from all [place] treatment facilities. Test Date/Time Test Type Test Details Facility Name Aug 06, 2024 08:37 AM Consult Order [facility] Cons In Tube Conversion Technician's Choice [facility] Social History: Smoking Status (Most current) and Tobacco Use (All prior to encounter date) This section includes the most current, and the historical, smoking and tobacco- related health factors from the [place] facility where the Encounter took place. Current Smoking Status This section includes the most current smoking, or tobacco-related health factor, from the [place] facility where the Encounter took place. Date/Time Current Smoking Status Comment Facil ity May 05, 2024 10:00 AM VA-TOBACCO FOR[facility] USER [facility] Tobacco Use History This section includes a history of the smoking, or tobacco-related health factors, that were collected on or before the date of the Encounter. The data comes from the [place] facility where the Encounter took place. Date/Time Smoking Status/Tobacco Use Comment F acility May 05, 2024 10:00 AM VA-TOBACCO QUIT 15 YRS OR MORE HI [facility] [place] [facility] May 03, 2023 02:00 PM VA-TOBACCO FORMER USER HI [facility] [place] [facility] May 03, 2023 02:00 PM VA-TOBACCO QUIT 15 YRS OR MORE [facility] [place] [facility] May 10, 2022 01:00 PM VA-TOBACCO FORMER USER [place] [facility] [place] [facility] May 10, 2022 01:00 PM VA-TOBACCO QUIT 15 YRS OR MORE HI [facility] [place] [facility] Apr 13, 2021 09:30 AM VA-TOBACCO FORMER USER HI [facility] [place] [facility] Apr 13, 2021 09:30 AM VA-TOBACCO QUIT 15 YRS OR MORE [facility] [place] [facility] Feb 04, 2020 11:32 AM VA-TOBACCO FORMER USER [place] [facility] [place] [facility] Feb 04, 2020 11:32 AM VA-TOBACCO QUIT 15 YRS OR MORE HI [facility] [place] [facility] March 11, 2019 03:07 PM VA-TOBACCO NEVER USED HI [facility] [place] [facility] Apr 01, 2018 01:21 PM QUIT TOBACCO USE > 7 YEARS AGO [facility] [place] [facility] Apr 27, 2017 08:18 AM QUIT TOBACCO USE > 7 YEARS AGO [facility] [place] [facility] May 03, 2016 08:29 AM LIFETIME [facility]ACCO [facility] [place] [facility] Dec 29, 2004 09:27 AM HISTORY OF SMOKING [place] [facility] [place] [facility] Dec 28, 2003 10:58 AM HISTORY OF SMOKING [facility] Dec 08, 2002 01:22 PM HISTORY OF SMOKING [place] [facility] [place] [facility] Jun 09, 2002 03:00 PM QUIT TOBACCO USE > 7 YEARS AGO [facility] [place] [facility] Dec 09, 2001 10:52 AM [facility] Dec 09, 2001 10:52 AM [facility]ACCO [facility] Encounter Notes: All associated encounter notes This section contains the clinical notes associated to the Encounter. Date/Time Encounter Note(s) Provider Source Jul 21, 2024 05:47 PM PHARMACY NOTE: LOCAL TITLE: PHARMACY CUSTOMER CARE MEDICATION RENEWAL STANDARD TITLE: PHARMACY NOTE DATE OF NOTE: JUL 21, 2024@17:47 ENTRY DATE: JUL 21, 2024@17:47:51 AUTHOR: GAY SWAIN COSIGNER: URGENCY: STATUS: COMPLETED Date: Jun Division: [facility] referred by Pharmacy Call Center for medication renewal: Non-controlled/maintenan ce medication Medications requested: [id number] OMEPRAZOLE 20MG EC CAP [id number] ALBUTEROL 90MCG (CFC-F) 200D ORAL INHL To be mailed . Please review and renew if appropriate. *This note was generated by [facility] Pharmacy Customer Care. If you have any questions or need assistance, do not contact this author. Please refer all questions to your local, on-site pharmacy departments. /lizzie/ GAY SWAIN CPhT Inspector Government Property, [place]/Pharmacy Customer Care Signed: 07/21/2024 17:50 Receipt Acknowledged By: 07/22/2024 07:21 /es/ Morro Hay DNP, LINTER OPERATOR-ANUP, CNL Primary Care Nurse Practitioner 07/22/2024 07:26 /es/ Iliana Jc MSN RN CNL Primary Care RN GAY SWAIN [facility]
--- OUTSIDE RECORDS SUMMARY | 2024-11-27 16:36 | XMS_ITS ---
Author Name [facility] [place] [place] [facility] [place] Address [address] [place] [address] Care Team Providers Care Clinical Rn Name Role Phone YESICA HAY Primary Care Provider Lee singer Insurance Providers: [...] MEDICARE SUPPLEMEN JARED Aug 29, 2014 PLANMY [phone] FR ZACH ANCIS PATIENT A[employer] MED SUPP MEDICARE SUPPLEMEN JARED PLAN MY Aug 29, 2014 PLANMY [id number] [phone] FR ZACH ANCIS PATIENT A[employer] MED SUPP MEDICARE SUPPLEMEN JARED Aug 29, 2014 PLANMY [id number] [phone] FR ZACH ANCIS PATIENT AARP MED SUPP MEDICARE SUPPLEMEN JARED PLANM Y Aug 29, 2014 PLAN [id number] [phone] FR ZACH ANCIS PATIENT AARP MED SUPP MEDICARE SUPPLEMEN JARED PLAN MY Aug 29, 2014 PLANORA [id number] [phone] FR BENSON SERRANO PATIENT MEDICARE (WNR) MEDICARE (M) PART B Apr 28, 2013 PART B [id number] [phone] FR BENSON SERRANO PATIENT MEDICARE (WNR) MEDICARE (M) PART B Apr 28, 2013 PART B [id number] [phone] FR BENSON SERRANO PATIENT MEDICARE (WNR) MEDICARE (M) PART B Apr 28, 2013 PART B [id number] [phone] FR BENSON SERRANO PATIENT MEDICARE (WNR) MEDICARE (M) PART A Aug 29, 2012 PART A [id number] [phone] FR BENSON SERRANO PATIENT MEDICARE (WNR) MEDICARE (M) PART A Aug 29, 2012 PART A [id number] [phone] FR BENSON SERRANO PATIENT MEDICARE (WNR) MEDICARE (M) PART A Aug 29, 2012 PART A [id number] [phone] FR BENSON SERRANO PATIENT Selected Encounter This section includes the information on record at [place] for the Encounter. Date/Time Encounter Type Encounter Description Reason Pro vider Source Apr 10, 2024 05:07 PM Outpatient Encounter ADMIN PAT ACTIVTIES (MASNONCT) IHE Encounter Template Text not used by [place] Plan of Treatment: Future Appointments (+ 6 months) and Future Tests (+/- 45 days) The Plan of Treatment section includes future care activities for the patient from all [place] treatmentfacilities. This section includes future appointments and future orders which are active, pending or scheduled. Future Appointments This section includes appointments that were scheduled to occur 6 months from the date of the Encounter, up to a maximum of 20 appointments. The data comes from all [place] treatment facilities. Appointment Date/Time Appointment Type Appointme nt Facility Name Apr 11, 2024 10:00 AM [place] [facility] [place] [facility] May 05, 2024 10:00 AM [place] [facility] [place] [facility] May 14, 2024 09:00 AM AMBULATORY - NONE [place] [facility] [place] [facility] Jul 04, 2024 02:15 PM [facility] Active, Pending, and Scheduled Orders This section includes a listing of several types of active, pending, and scheduled orders, including clinic medications orders, diagnostic test orders, procedure orders and consult orders; where the start date of the order is 45 days before the date of the Encounter or 45 days after the date of theEncounter. The data comes from all [place] treatment facilities. Test Date/Time Test Type Test Details Facility Name May 05, 2024 10:30 AM Consult Order [facility]-NEUROLOGY Cons Crime Scene Investigator's Choice [facility] Lab Results: +/- 30 days of the encounter This section includes the Chemistry and Hematology Lab Results on record with [place] for the patient. Radiology Reports and Pathology Reports are provided separately, in subsequent sections. Lab Results This section contains the Chemistry/Hematology Results that were resulted 30 days before or 30 daysafter the date of the Encounter. Date/Time Source Result Type Result - Unit Interpretation Reference Range Comment May 05, 2024 10:[address] [facility] VITAMIN B12 Specimen Type: SERUM No comment entered. Ordering Provider: JIAN HAY Report Released Date/Time: May 05, 2024 10:21 AM Reporting Lab: [facility] [address] [address] Performing Lab: [facility] [address] [address] VITAMIN B12 885 pg/mL 200-900 May 05, 2024 10:45 AM [facility] FERRITIN Specimen Type: SERUM No comment entered. Ordering Provider: JIAN HAY Report Released Date/Time: May 05, 2024 10:21 AM Reporting Lab: [facility] [address] [address] Performing Lab: [facility] [address] FERRITIN 57 ng/mL 20-300 May 05, 2024 10:[address] [facility] IRON & TIBC PANEL Specimen Type: SERUM No comment entered. Ordering Provider: JIAN HAY Report Released Date/Time: May 05, 2024 10:21 AM Reporting Lab: [facility] [address] [address] Performing Lab: [facility] [address] [address] TIBC 381 ug/dL 204-475 IRON 58 ug/dL 40-160 Transferrin Saturation 15.2 L 20.0-50.0 May 05, 2024 10:45 AM [facility] CBC AND DIFF (AUTO) Specimen Type: BLOOD No comment entered. Ordering Provider: JIAN HAY Report Released Date/Time: May 05, 2024 10:21 AM Reporting Lab: [facility] [address] [address] Performing Lab: [address] [address] WBC 7.90 10*3/uL 4.50-11.00 RBC 4.05 10*6/uL [...] 10*3/uL 0.00-0.00 Apr 28, 2024 08:38 AM [facility] LIPID PANEL, NON FASTING Specimen Type: SERUM No comment entered. Ordering Provider: JIAN HAY Report Released Date/Time: Apr 23, 2024 09:49 AM Reporting Lab: [facility] [address] [address] Performing Lab: [address] [address] CHOLESTEROL 166 mg/dL TRIGLYCERIDE 127 mg/dL 0-150 LDL calculated 98 mg/dL 0-129 CHOL/HDL 3.9 HDL CHOLESTEROL 43 mg/dL 40-60 Apr 28, 2024 08:38 AM [facility] BASIC METABOLIC PANEL (non-fasting) Specimen Type: SERUM No comment entered. Ordering Provider: JIAN HAY Report Released Date/Time: Apr 23, 2024 09:49 AM Reporting Lab: [address] [address] Performing Lab: [address] [address] UREA NITROGEN 22 mg/dL 7-25 GLUCOSE 102 mg/dL H 65-100 SODIUM 137 mmol/L 135-145 POTASSIUM 4.3 mmol/L 3.5-5.0 CHLORIDE 102 mmol/L 100-110 CO2 26 meq/L 20-30 CREATININE, Serum 1.15 mg/dL 0.50-1.40 eGFR(CKD-EPI 2020) 66 mL/min >60 Apr 28, 2024 08:38 AM [facility] CBC Specimen Type: BLOOD No comment entered. Ordering Provider: JIAN HAY Report Released Date/Time: Apr 23, 2024 09:49 AM Reporting Lab: [address] [address] Performing Lab: [facility] [address] [address] WBC 7.77 10*3/uL 4.50-11.00 RBC 3.98 10*6/uL L 4.23-5.66 HGB 11.9 g/dL L 12.8-17 HCT 36.9 L 39.2-50.4 MCV 92.7 fL 82-99 MCHC 32.2 g/dL 30.8-35.1 PLT 231 10*3/uL 140-360 RDW-CV 14.2 12.0-16.0 MCH 29.9 pg 26.2-32.6 Apr 28, 2024 08:38 AM [facility] LIVER FUNCTION Specimen Type: SERUM No comment entered. Ordering Provider: JIAN HAY Report Released Date/Time: Apr 23, 2024 09:49 AM Reporting Lab: [address] [address] Performing Lab: [address] [address] PROTEIN,TOTAL 6.9 g/dL 6.0-8.3 ALBUMIN 3.9 g/dL 3.5-5.0 ALKALINE PHOSPHATASE 84 U/L 40-150 AST 20 U/L 5-34 ALT 24 U/L BILIRUBIN, TOTAL 0.5 mg/dL 0.2-1.2 Social History: Smoking Status (Most current) and Tobacco Use (All prior to encounter date) This section includes the most current, and the historical, smoking and tobacco- related health factors from the [place] facility where the Encounter took place. Current Smoking Status This section includes the most current smoking, or tobacco-related health factor, from the [place] facility where the Encounter took place. Date/Time Current Smoking Status Comment Facil ity May 03, 2023 02:00 PM VA-TOBACCO FORMER USER [facility] Tobacco Use History This section includes a history of the smoking, or tobacco-related health factors, that were collected on or before the date of the Encounter. The data comes from the [place] facility where the Encounter took place. Date/Time Smoking Status/Tobacco Use Comment F acility May 03, 2023 02:00 PM VA-TOBACCO QUIT 15 YRS OR MORE [facility] [place] [facility] May 10, 2022 01:00 PM VA-TOBACCO FORMER USER [facility] [place] [facility] May 10, 2022 01:00 PM VA-TOBACCO QUIT 15 YRS OR MORE [facility] [place] [facility] Apr 13, 2021 09:30 AM VA-TOBACCO FORMER USER [facility] [place] [facility] Apr 13, 2021 09:30 AM VA-TOBACCO QUIT 15 YRS OR MORE [facility] [place] [facility] Feb 04, 2020 11:32 AM VA-TOBACCO FORMER USER [facility] [place] [facility] Feb 04, 2020 11:32 AM VA-TOBACCO QUIT 15 YRS OR MORE [facility] [place] [facility] March 11, 2019 03:07 PM VA-TOBACCO NEVER USED [facility] [place] [facility] Apr 01, 2018 01:21 PM QUIT TOBACCO USE > 7 YEARS AGO [facility] [place] [facility] Apr 27, 2017 08:18 AM QUIT TOBACCO USE > 7 YEARS AGO [facility] [place] [facility] May 03, 2016 08:29 AM LIFETIME NON-TOBACCO USER [facility] [place] [facility] Dec 29, 2004 09:27 AM HISTORY OF SMOKING [facility] [place] [facility] Dec 28, 2003 10:58 AM HISTORY OF SMOKING [facility] [place] [facility] Dec 08, 2002 01:22 PM HISTORY OF SMOKING [facility] [place] [facility] Jun 09, 2002 03:00 PM QUIT TOBACCO USE > 7 YEARS AGO [facility] [place] [facility] Dec 09, 2001 10:52 AM HISTORY OF SMOKING [facility] [place] [facility] Dec 09, 2001 10:52 AM NON-TOBACCO USER [facility] [place] [facility] Encounter Notes: All associated encounter notes This section contains the clinical notes associated to the Encounter. Date/Time Encounter Note(s) Provider Source Apr 10, 2024 05:07 PM PHARMACY NOTE: LOCAL TITLE: V1 PHARMACY CUSTOMER CARE MEDICATION RENEWAL STANDARD TITLE: PHARMACY NOTE DATE OF NOTE: APR 10, 2024@17:07 ENTRY DATE: APR 10, 2024@17:07:57 AUTHOR: HUNG KUNZ EXP COSIGNER: URGENCY: STATUS: COMPLETED Date: Mar Division: [facility] referred by Pharmacy Call Center for medication renewal: Non-controlled/maintenan ce medication Medications requested: [id number] 20MG TABLET Defer to primary care provider To be mailed . Please review and renew if appropriate. *This note was generated by [facility]/[place] Pharmacy Customer Care. If you have any questions or need assistance, do not contact this author. Please refer all questions to your local, on-site pharmacy departments. /lizzie/ Kat KUNZ CPhT Keyseating Machine Set Up Operator, [place]/Pharmacy Customer Care Signed: 04/10/2024 17:09 Receipt Acknowledged By: 04/11/2024 06:53 /es/ Yesica Hay DNP, DIRECTOR OF FINANCIAL REPORTING-BC, MALINAL Primary Care Nurse Practitioner 04/11/2024 07:22 /lizzie/ Hung COY RN CNL Primary Care RN HUNG KUNZ [facility]
--- OUTSIDE RECORDS SUMMARY | 2024-11-27 16:36 | XMS_ITS | Encounter Summary ---
Author Name [facility] Organization [facility] Address [address] [place] [address] Care Team Providers Care Shuttle Buggy Operator Name Role Phone YESICA KANG Primary Care Provider [facility] Insurance Providers: All historical and current [...] MEDICARE SUPPLEMEN JARED Aug 29, 2014 PLANMY [id number] [phone] FR ZACH ANCIS PATIENT AARP MED SUPP MEDICARE SUPPLEMEN JARED PLAN MY Aug 29, 2014 PLANMY [id number] [phone] FR ZACH ANCIS PATIENT AARP MED SUPP MEDICARE SUPPLEMEN JARED Aug 29, 2014 PLANMY [id number] [phone] FR ZACH ANCIS PATIENT AARP MED SUPP MEDICARE SUPPLEMEN JARED PLANM Y Aug 29, 2014 PLAN [id number] [phone] FR ZACH ANCIS PATIENT AARP MED SUPP MEDICARE SUPPLEMEN JARED PLAN MY Aug 29, 2014 PLANORA [id number] [phone] FR BENSON SERRANO PATIENT MEDICARE (WNR) MEDICARE (M) PART B Apr 28, 2013 PART B [id number] [phone] FR BENSON SERRANO PATIENT MEDICARE (WNR) MEDICARE (M) PART B Apr 28, 2013 PART B [id number] [phone] FR CINDY SERRANOIS PATIENT MEDICARE (WNR) MEDICARE (M) PART B Apr 28, 2013 PART B [id number] [phone] FR BENSON SERRANO PATIENT MEDICARE (WNR) MEDICARE (M) PART A Aug 29, 2012 PART A [id number] [phone] FR BENSON SERRANO PATIENT MEDICARE (WNR) MEDICARE (M) PART A Aug 29, 2012 PART A [id number] [phone] FR BENSON SERRANO PATIENT MEDICARE (WNR) MEDICARE (M) PART A Aug 29, 2012 PART A [id number] [phone] FR BENSON SERRANO PATIENT Selected Encounter This section includes the information on record at ID for the Encounter. Date/Time Encounter Type Encounter Description Reason Provider Source Apr 11, 2024 10:00 AM COMPRE OPH EXAM EST PT 1/> OPTOMETRY ICD-10-CM H25.813 Combined forms of age-related cataract, bilateral EFREN BARROS Marla Encounter Template Text not used by ID Assessments - Encounter Diagnoses This section includes the primary and secondary diagnoses documented for the Encounter. Date/Time Primary/Secondary Diagnosis Diagnosis Name Provider Source May 07, 2024 04:18 PM PRIMARY Combined forms of age-related cataract, bilateral EFREN BARROS [facility] [place] [facility] May 07, 2024 04:18 PM SECONDARY Unspecified blepharitis unspecified eye, unspecified eyelid EFREN BARROS [facility] [place] [facility] May 07, 2024 04:18 PM SECONDARY Unspecified disorder of refraction [facility] Plan of Treatment: Future Appointments (+ 6 months) and Future Tests (+/- 45 days) The Plan of Treatment section includes future care activities for the patient [facility] This section includes future appointments and future orders which are active, pending or scheduled. Future Appointments This section includes appointments that were scheduled to occur 6 months from the date of the Encounter, up to a maximum of 20 appointments. The data comes from all ID treatment facilities. Appointment Date/Time Appointment Type Appointme nt Facility Name May 05, 2024 10:00 AM AMBULATORY - MEDICINE ID [facility] [place] [facility] May 14, 2024 09:00 AM AMBULATORY - NONE ID [facility] [place] [facility] Jul 04, 2024 02:15 PM [facility] Active, Pending, and Scheduled Orders This section includes a listing of several types of active, pending, and scheduled orders, including clinic medications orders, diagnostic test orders, procedure orders and consult orders; where the start date of the order is 45 days before the date of the Encounter or 45 days after the date of theEncounter. The data comes from all ID treatment facilities. Test Date/Time Test Type Test Details Facility Name May 05, 2024 10:30 AM Consult Order COMMUNITY CARE-NEUROLOGY Cons Cipher Expert's Choice [facility] Lab Results: +/- 30 days of the encounter This section includes the Chemistry and Hematology Lab Results on record with ID for the patient. Radiology Reports and Pathology Reports are provided separately, in subsequent sections. Lab Results This section contains the Chemistry/Hematology Results that were resulted 30 days before or 30 daysafter the date of the Encounter. Date/Time Source Result Type Result - Unit Interpretation Reference Range Comment May 05, 2024 10:45 AM [facility] VITAMIN B12 Specimen Type: SERUM No comment entered. Ordering Provider: JIAN KANG Report Released Date/Time: May 05, 2024 10:21 AM Reporting [facility] [place] [facility] [address] [address] Performing Lab: [facility] [address] VITAMIN B12 885 pg/mL 200-900 May 05, 2024 10:45 AM [facility] FERR[facility]IN Specimen Type: SERUM No comment entered. Ordering Provider: JIAN KANG Report Released Date/Time: May 05, 2024 10:21 AM Reporting Lab: [facility] [address] [address] Performing Lab: [address] [address] FERRITIN 57 ng/mL 20-300 May 05, 2024 10:45 AM [facility] IRON & TIBC PANEL Specimen Type: SERUM No comment entered. Ordering Provider: JIAN KANG Report Released Date/Time: May 05, 2024 10:21 AM Reporting Lab: [address] [address] Performing Lab: [address] [address] TIBC 381 ug/dL 204-475 IRON 58 ug/dL 40-160 Transferrin Saturation 15.2 L 20.0-50.0 May 05, 2024 10:45 AM [facility] CBC AND DIFF (AUTO) Specimen Type: BLOOD No comment entered. Ordering Provider: JIAN KANG Report Released Date/Time: May 05, 2024 10:21 AM Reporting Lab: [address] [address] Performing Lab: [address] [address] WBC 7.90 10*3/uL 4.50-11.00 RBC 4.05 10*6/uL [...] 10*3/uL 0.00-0.00 Apr 28, 2024 08:38 AM [facility] CBC Specimen Type: BLOOD No comment entered. Ordering Provider: JIAN KAGN Report Released Date/Time: Apr 23, 2024 09:49 AM Reporting Lab: [address] [address] Performing Lab: [address] [address] WBC 7.77 10*3/uL 4.50-11.00 RBC 3.98 10*6/uL L 4.23-5.66 HGB 11.9 g/dL L 12.8-17 HCT 36.9 L 39.2-50.4 MCV 92.7 fL 82-99 MCHC 32.2 g/dL 30.8-35.1 PLT 231 10*3/uL 140-360 RDW-CV 14.2 12.0-16.0 MCH 29.9 pg 26.2-32.6 Apr 28, 2024 08:38 AM [facility] LIPID PANEL, NON FASTING Specimen Type: SERUM No comment entered. Ordering Provider: JIAN KANG Report Released Date/Time: Apr 23, 2024 09:49 AM Reporting Lab: [address] [address] Performing Lab: [facility] [address] [address] CHOLESTEROL 166 mg/dL TRIGLYCERIDE 127 mg/dL 0-150 LDL calculated 98 mg/dL 0-129 CHOL/HDL 3.9 HDL CHOLESTEROL 43 mg/dL 40-60 Apr 28, 2024 08:38 AM [facility] LIVER FUNCTION Specimen Type: SERUM No comment entered. Ordering Provider: JIAN KANG Report Released Date/Time: Apr 23, 2024 09:49 AM Reporting Lab: [facility] [address] [address] Performing Lab: [address] [address] PROTEIN,TOTAL 6.9 g/dL 6.0-8.3 ALBUMIN 3.9 g/dL 3.5-5.0 ALKALINE PHOSPHATASE 84 U/L 40-150 AST 20 U/L 5-34 ALT 24 U/L BILIRUBIN, TOTAL 0.5 mg/dL 0.2-1.2 Apr 28, 2024 08:38 AM [facility] BASIC METABOLIC PANEL (non-fasting) Specimen Type: SERUM No comment entered. Ordering Provider: JIAN KANG Report Released Date/Time: Apr 23, 2024 09:49 AM Reporting Lab: [address] [address] Performing Lab: [address] [address] UREA NITROGEN 22 mg/dL 7-25 GLUCOSE 102 mg/dL H 65-100 SODIUM 137 mmol/L 135-145 POTASSIUM 4.3 mmol/L 3.5-5.0 CHLORIDE 102 mmol/L 100-110 CO2 26 meq/L 20-30 CREATININE, Serum 1.15 mg/dL 0.50-1.40 eGFR(CKD-EPI 2020) 66 mL/min >60 Social History: Smoking Status (Most current) and Tobacco Use (All prior to encounter date) This section includes the most current, and the historical, smoking and tobacco- related health factors from the ID facility where the Encounter took place. Current Smoking Status This section includes the most current smoking, or tobacco-related health factor, from the ID facility where the Encounter took place. Date/Time Current Smoking Status Comment Ángel ity May 03, 2023 02:00 PM VA-TOBACCO FORMER USER ID [facility] [place] [facility] Tobacco Use History This section includes a history of the smoking, or tobacco-related health factors, that were collected on or before the date of the Encounter. The data comes from the ID facility where the Encounter took place. Date/Time Smoking Status/Tobacco Use Comment Maral acility May 03, 2023 02:00 PM VA-TOBACCO QUIT 15 YRS OR MORE ID [facility] [place] [facility] May 10, 2022 01:00 PM VA-TOBACCO FORMER USER [facility] [place] [facility] May 10, 2022 01:00 PM VA-TOBACCO QUIT 15 YRS OR MORE ID [facility] [place] [facility] Apr 13, 2021 09:30 AM VA-TOBACCO FORMER USER ID [facility] [place] [facility] Apr 13, 2021 09:30 AM VA-TOBACCO QUIT 15 YRS OR MORE ID [facility] [place] [facility] Feb 04, 2020 11:32 AM VA-TOBACCO FORMER USER ID [facility] [place] [facility] Feb 04, 2020 11:32 AM VA-TOBACCO QUIT 15 YRS OR MORE [facility] [place] [facility] March 11, 2019 03:07 PM VA-TOBACCO NEVER USED ID [facility] [facility] Apr 01, 2018 01:21 PM QUIT TOBACCO USE > 7 YEARS AGO [facility] [place] [facility] Apr 27, 2017 08:18 AM QUIT TOBACCO USE > 7 YEARS AGO [facility] [place] [facility] May 03, 2016 08:29 AM LIFETIME NON-TOBACCO USER ID [facility] [place] [facility] Dec 29, 2004 09:27 AM HISTORY OF SMOKING [facility] [place] [facility] Dec 28, 2003 10:58 AM HISTORY OF SMOKING [facility] [place] [facility] Dec 08, 2002 01:22 PM HISTORY OF SMOKING ID [facility] [place] [facility] Jun 09, 2002 03:00 PM QUIT TOBACCO USE > 7 YEARS AGO [facility] [place] [facility] Dec 09, 2001 10:52 AM HISTORY OF SMOKING [facility] Dec 09, 2001 10:52 AM NON-TOBACCO USER [facility] Encounter Notes: All associated encounter notes This section contains the clinical notes associated to the Encounter. Date/Time Encounter Note(s) Provider Source Apr 11, 2024 10:22 AM OPTOMETRY NOTE: LOCAL TITLE: OPTOMETRY NOTE(T) STANDARD TITLE: OPTOMETRY NOTE DATE OF NOTE: APR 11, 2024@10:22 ENTRY DATE: APR 11, 2024@10:22:08 AUTHOR: EFREN BARROS EXP COSIGNER: URGENCY: STATUS: COMPLETED I saw this patient in conjunction with the student and agree to the stated findings and plan after reviewing both history and repeating berger elements of physical exam. 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 Mild pigment mottling was seen in the macula OU and mild blepharitis OU. Otherwise no other acute ocular disease was seen today. Ordered bifocals with transition lenses for glare sensitivity. Recommended lid scrubs and gave patient sample of Cassie eyelid wipes. The patient will return in 12 months or sooner if any problems arise. /lizzie/ EFREN BARROS OD STAFF CLASSROOM INSTRUCTOR Signed: 04/11/2024 10:46 EFREN BARROS [facility] Apr 11, 2024 09:43 AM OPTOMETRY NOTE: LOCAL TITLE: OPTOMETRY NOTE STANDARD TITLE: OPTOMETRY NOTE DATE OF NOTE: APR 11, 2024@09:43 ENTRY DATE: APR 11, 2024@09:43:44 AUTHOR: DAJA BANDA JR EXP COSIGNER: EFREN BARROS URGENCY: STATUS: COMPLETED Active problems - Computerized Problem List is the source for the followin. Exposure to potentially hazardous substance 2. Osteoarthritis of hip 3. Obstructive Sleep Apnea of Adult (SCT [id number]) 4. Steatosis of liver 5. Benign Prostatic Hypertrophy with Outflow Obstruction ([facility] [id number]) 6. History of male erectile disorder 7. Polyp of colon 8. Other Ulcerative Colitis 9. Nasal Polyps 10. Vitamin B 12 Deficiency 11. Benign essential hypertension (SNOMED CT 1518033) 12. Asthma (SNOMED CT 398387402) 13. Hyperlipidemia (SNOMED CT 40031714) 14. Gastroesophageal reflux disease (SNOMED CT 360634912) Active Outpatient Medications (including Supplies): Active Outpatient Medications Status 1) ALBUTEROL [...] CAP TAKE ONE CAPSULE BY MOUTH ACTIVE (S) TWICE DAILY 5) SILDENAFIL CITRATE 100MG TAB TAKE ONE TABLET BY MOUTH ACTIVE NEEDED TAKE 1 HOUR PRIOR TO SEXUAL ACTIVITY 6) ZAFIRLUKAST 20MG TAB TAKE ONE TABLET BY MOUTH TWICE ACTIVE (S) DAILY Active Non-VA Medications Status 1) Non-VA ATORVASTATIN CALCIUM 80MG TAB 40MG BY MOUTH ACTIVE DAILY 2) Non-VA CYANOCOBALAMIN 500MCG TAB 2500MCG BY MOUTH ACTIVE DAILY 3) Non-VA FLUTICASONE NASAL SOLN,NASAL INTO EACH ACTIVE NOSTRIL 4) Non-VA LISINOPRIL 5MG TAB 5MG BY MOUTH DAILY ACTIVE 5) Non-VA LISINOPRIL 5MG TAB 5MG BY MOUTH ONCE DAILY ACTIVE 6) Non-VA LORATADINE 10MG TAB 10MG BY MOUTH DAILY ACTIVE 12 Total Medications Allergies: Patient has answered NKA All medications including those prescribed by outside VA's, community providers, and all OTC meds were reviewed and reconciled with patient to the best of their abilities. This 78 year old MALE is seen today for annual CEE JEWELL: 03/2023 Chief Complaint: Pt. had glasses remade with 2021 Rx after last visit. That is the Rx he currently wears and feels vision is good both distance and near Pt. bella flashes, redness, pain, itch. Has longstanding floaters Denies changes to systemic health or medication use since last visit OHx: - Combined form cataracts OU - Refractive error & presbyopia OU Ocular Medications: (-) Pain: (-) MEYERS: (-) Diplopia: (-) Flashes: (+) Floaters: longstanding (-) Amaurosis Fugax/Tia's: (-) Eye Injury: (-) Eye Surgery: (-) TBI FOHx: (-) Glaucoma/ARMD/Blindness VITALS (most recent, as listed in the electronic record): B/P: 122/84 (11/08/2023 10:04) Pulse: 98 (11/08/2023 09:57) Temperature: 98.7 F [37.1 C] (05/03/2023 13:39) Weight: 215 lb [97.52 kg] (11/08/2023 09:57) Height: 69 in [175.3 cm] (05/03/2023 13:39) BMI: BMI: 31.8 PERTINENT LABS: HEMOGLOBIN A1C TREND Collection DT Spec HGBA1c 11/06/2023 09:03 BLOOD 5.9 H 05/08/2022 08:12 BLOOD 5.7 H 04/06/2021 08:59 BLOOD 5.8 H 04/04/2019 08:33 BLOOD 6.3 H 03/28/2018 08:46 BLOOD 6.2 H (-) Smoker/Length of Time/PPD: Current Rx with last BCVA: OD: +3.75-1.75g433 20/20 OS: +4.00-1.09b514 20/20- Add: +2.50 DVA ( )sc ( x )cc - phoropter OD: 20/20 OS: 20/20 Pupils: PERRL (-)APD EOMs: SAFE OU, (-)Pain/Diplopia CVF (facial, peripheral): FTFC OU Subjective Refraction: OD: +3.75-1.69d252 20/20 OS: +4.00-1.69x848 20/20 OU 20/20 Add: +2.50 20/20 All the above performed by student, reviewed by attending Anterior segment: Performed by student, repeated by attending * Lids: dermatochalasis, 1+ debris UL & LL, trace capped MG's OU Conj: white and quiet OU Cornea: prominent allen stahli line OU AC: 4x4 OU Iris: flat and clear (-)TID OU Lens: 1+NS, 2+ACC OU Tonometry: Performed by student, reviewed by attending * [x ] GAT [ ] iCare OD 17 mmHg OS 19 mmHg Time: 10:11 am Fundus exam: Dilated: xx 10:12 am Dilating Drops: 1GTT 1 % Tropicamide OU & 1GTT 2.5% Phenylephrine OU (Pt. ed. on side effects, dilation warning given and verbal consent obtained) Patient advised not to drive if they feel they have any symptoms which could affect their ability to drive safely. Patient advised not to engage in any activities which could put themselves or others at risk if they feel they have any symptoms which could affect their ability to perform those activities safely. Performed by student, repeated by attending * Vit: Syneresis OU (+)PVD OU C/D: 0.30 OD, 0.30 OS Macula: OD: few small hard drusen OS: flat & clear PPole: OD: few scattered hard drusen temporal arcades OS: clear A/V: 2/3 Vessels: normal caliber OU Periph: flat and intact (-)holes, tears, detachments 360 OU Assessment/Plan: 1. Combined Form Cataracts OU - Pt. ed. on findings - cataracts are not visually significant and that surgery is not necessary at this time - Continue to monitor 2. Dry eyes OU - With anterior blepharitis OU - Ed. on use of baby shampoo lid scrubbing if becoming symptomatic. Given samples of a few cassie lid scrubs - Pt. asymptomatic at this time - Continue to monitor 3. 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 educated on findings. Getting a duplicate pair of FT 28 bifocals - Continue to monitor Return to Clinic 1 Year or earlier PRN Education: After discussion and answering all 's questions, Lincoln demonstrated and verbalized understanding of diagnosis and treatment. Yes [x] No [ ] Medication Reconciliation: Outpatient: Has the patient been taking medications as documented in the EMLR? YES: The patient has been taking medications as documented in the EMLR. Essential Medication List for Review used to complete this medication reconciliation. INCLUDED IN THIS LIST: Alphabetical list of active outpatient prescriptions dispensed from this VA (local) and dispensed from another VA or [...] with a VA or non-VA provider. /lizzie/ DAJA BANDA JR OPTOMETRY STUDENT Signed: 04/11/2024 10:52 /lizzie/ EFREN BARROS OD STAFF CLASSROOM INSTRUCTOR Cosigned: 04/11/2024 10:54 DA[facility]ANDA JR [facility]
--- OUTSIDE RECORDS SUMMARY | 2024-11-27 16:36 | XMS_ITS ---
Author Name [facility] [facility] [place] Address [address] [place] [address] Care Team Providers Care Diagnostic Imaging Manager Name Role Phone MORRO HAY Primary Care Provider Lee singer Insurance [...] MEDICARE SUPPLEMEN JARED Aug 29, 2014 PLANMY [id number] [phone] FR ZACH ANCIS PATIENT A[employer] MED SUPP MEDICARE SUPPLEMEN JARED PLAN MY Aug 29, 2014 PLANMY [id number] [phone] FR ZACH ANCIS PATIENT A[employer] MED SUPP MEDICARE SUPPLEMEN JARED Aug 29, 2014 PLANMY [id number] [phone] FR ZACH ANCIS PATIENT AARP MED SUPP MEDICARE SUPPLEMEN JARED PLANM Y Aug 29, 2014 PLAN [id number] [phone] FR ZACH ANCIS PATIENT AARP MED SUPP MEDICARE SUPPLEMEN JARED PLAN MY Aug 29, 2014 PLANORA [id number] [phone] FR BENSON SERRANO PATIENT MEDICARE (WNR) MEDICARE (M) PART B Apr 28, 2013 PART B [id number] [phone] FR BENSON SERRANO PATIENT MEDICARE (WNR) MEDICARE (M) PART B Apr 28, 2013 PART B [id number] [phone] FR BENSON SERRANO PATIENT MEDICARE (WNR) MEDICARE (M) PART B Apr 28, 2013 PART B [id number] [phone] FR BENSON SERRANO PATIENT MEDICARE (WNR) MEDICARE (M) PART A Aug 29, 2012 PART A [id number] [phone] FR BENSON SERRANO PATIENT MEDICARE (WNR) MEDICARE (M) PART A Aug 29, 2012 PART A [id number] [phone] FR BENSON SERRANO PATIENT MEDICARE (WNR) MEDICARE (M) PART A Aug 29, 2012 PART A [id number] [phone] FR BENSON SERRANO PATIENT Selected Encounter This section includes the information on record at [place] for the Encounter. Date/Time Encounter Type Encounter Description Reason Pro vider Source Sep 02, 2024 07:30 PM Outpatient Encounter ADMIN PAT ACTIVTIES (MASNONCT) IHE Encounter Template Text not used by [place] Plan of Treatment: Future Appointments (+ 6 months) and Future Tests (+/- 45 days) The Plan of Treatment section includes future care activities for the patient from all [place] treatmentfacilities. This section includes future appointments and future orders which are active, pending or scheduled. Future Appointments This section includes appointments that were scheduled to occur 6 months from the date of the Encounter, up to a maximum of 20 appointments. The data comes from all [place] treatment facilities. Appointment Date/Time Appointment Type Appointme nt Facility Name Nov 05, 2024 11:00 AM [place] [facility] [place] [facility] Nov 06, 2024 10:00 AM [facility]ORY - MEDICINE [facility] [place] [facility] Nov 27, 2024 01:00 PM [place] [facility] [place] [facility] Jan 02, 2025 09:45 AM AMBUL[place]ORY - NONE [place] [facility] [place] [facility] Active, Pending, and Scheduled Orders This section includes a listing of several types of active, pending, and scheduled orders, including clinic medications orders, diagnostic test orders, procedure orders and consult orders; where the start date of the order is 45 days before the date of the Encounter or 45 days after the date of theEncounter. The data comes from all [place] treatment facilities. Test Date/Time Test Type Test Details Facility Name Aug 06, 2024 08:37 AM Consult Order [facility] Cons Home School Teacher's Choice [place] [facility] [place] [facility] Social History: Smoking Status (Most current) and Tobacco Use (All prior to encounter date) This section includes the most current, and the historical, smoking and tobacco- related health factors from the [place] facility where the Encounter took place. Current Smoking Status This section includes the most current smoking, or tobacco-related health factor, from the [place] facility where the Encounter took place. Date/Time Current Smoking Status Comment Facil ity May 05, 2024 10:00 AM [facility]BACCO [facility] Tobacco Use History This section includes a history of the smoking, or tobacco-related health factors, that were collected on or before the date of the Encounter. The data comes from the [place] facility where the Encounter took place. Date/Time Smoking Status/Tobacco Use Comment F acility May 05, 2024 10:00 AM VA-TOBACCO QUIT 15 YRS OR MORE [place] [facility] [place] [facility] May 03, 2023 02:00 PM VA-TOBACCO FORMER USER [place] [facility] [place] [facility] May 03, 2023 02:00 PM VA-TOBACCO QUIT 15 YRS OR MORE [place] [facility] [place] [facility] May 10, 2022 01:00 PM VA-TOBACCO FORMER USER [place] [facility] [place] [facility] May 10, 2022 01:00 PM VA-TOBACCO QUIT 15 YRS OR MORE [place] [facility] [place] [facility] Apr 13, 2021 09:30 AM VA-TOBACCO FORMER USER [place] [facility] [place] [facility] Apr 13, 2021 09:30 AM VA-TOBACCO QUIT 15 YRS OR MORE [place] [facility] [place] [facility] Feb 04, 2020 11:32 AM VA-TOBACCO FORMER USER [place] [facility] [place] [facility] Feb 04, 2020 11:32 AM VA-TOBACCO QUIT 15 YRS OR MORE [place] [facility] [place] [facility] March 11, 2019 03:07 PM VA-TOBACCO NEVER USED [place] [facility] [place] [facility] Apr 01, 2018 01:21 PM QUIT TOBACCO USE > 7 YEARS AGO [place] [facility] [place] [facility] Apr 27, 2017 08:18 AM QUIT TOBACCO USE > 7 YEARS AGO [place] [facility] [place] [facility] May 03, 2016 08:29 AM LIFETIME NON-TOBACCO USER [place] [facility] [place] [facility] Dec 29, 2004 09:27 AM HISTORY OF SMOKING [place] [facility] [place] [facility] Dec 28, 2003 10:58 AM HISTORY OF SMOKING [facility] [place] [facility] Dec 08, 2002 01:22 PM HISTORY OF SMOKING [place] [facility] [place] [facility] Jun 09, 2002 03:00 PM QUIT TOBACCO USE > 7 YEARS AGO [place] [facility] [place] [facility] Dec 09, 2001 10:52 AM HISTORY OF SMOKING [place] [facility] [place] [facility] Dec 09, 2001 10:52 AM [facility]BACCO [facility] Encounter Notes: All associated encounter notes This section contains the clinical notes associated to the Encounter. Date/Time Encounter Note(s) Provider Source Sep 02, 2024 07:30 PM PHARMACY NOTE: LOCAL TITLE: PHARMACY CUSTOMER CARE MEDICATION RENEWAL STANDARD TITLE: PHARMACY NOTE DATE OF NOTE: SEP 02, 2024@19:30 ENTRY DATE: SEP 02, 2024@19:30:33 AUTHOR: BEA LUNA COSIGNER: URGENCY: STATUS: COMPLETED Date: Aug Division: [facility] referred by Pharmacy Call Center for medication renewal: Non-controlled/maintenanc e medication Medications requested: [id number] ALBUTEROL SO4 0.083% INHL 3ML [id number] ALBUTEROL 90MCG (CFC-F) 200D ORAL INHL [id number] FLUTICAS 500/SALMETEROL 50 INHL DISK 60 [id number] SILDENAFIL CITRATE 100MG TAB Defer to primary care provider To be mailed. Please review and renew if appropriate. *This note was generated by [facility]/[place] Pharm[facility] Customer Care. If you have any questions or need assistance, do not contact this author. Please refer all questions to your local, on-site pharmacy departments. /lizzie/ BEA LUNA [employer], [place]/Pharmacy Customer Care Signed: 09/02/2024 19:31 Receipt Acknowledged By: 09/03/2024 07:50 /es/ Morro Hay DNP, SCALE MODEL MAKER-BC, CNL Primary Care Nurse Practitioner 09/03/2024 13:18 /es/ Iliana COY RN CNL Primary Care RN BEA LUNA [facility]
--- OUTSIDE RECORDS SUMMARY | 2024-11-27 16:36 | XMS_ITS | Continuity of Care Document ---
Author Name [facility] Organization [facility] Care Team Providers Care Science Manager Name Role Phone [facility] Unavailable Unavailable Problems Combined list of problems from Department of Defense and Veterans Affairs facilities. It does not include entries that were removed or entered in error. 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 [facility] Exposure to potentially hazardous substance Active Condition Feb 01, 2024 Entered By: NIK SRIVASTAVA Comment: DESHAWN Screening Snomed Code connected 05/03/23 [facility] Gastroesophageal reflux disease (SNOMED CT 382728251) Active Condition [place] History of male erectile disorder Active Condition [facility] Hyperlipidemia (SNOMED CT 38782277) Active Condition [place] Nasal Polyps Active Condition [facility] Obstructive Sleep Apnea of Adult (SCT 9499886298499) Active Condition [facility] Osteoarthritis of hip Active Condition Nov 08, 2023 Entered By: PREM KANG Comment: right hip, follows [facility] Other Ulcerative Colitis Active Condition Jun 14, 2009 Entered By: MATILDE BARKSDALE Comment: flexible sigmoidoscopy and followup labs--Dr. 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 Condition [facility] Diagnosis: ICD-10-CM R25.1 Tremor, unspecified Active Diagnosis [facility] Diagnosis: ICD-10-CM K03.6 Deposits [accretions] on teeth Active Diagnosis [facility] Diagnosis: ICD-10-CM K05.30 Chronic periodontitis, unspecified Active Diagnosis [facility] Diagnosis: ICD-10-CM M16.9 Osteoarthritis of hip, unspecified Active Diagnosis [facility] Diagnosis: ICD-10-CM Z46.0 Encounter for fit/adjst of spectacles and contact lenses Active Diagnosis [facility] Diagnosis: ICD-10-CM H25.813 Combined forms of age-related cataract, bilateral Active Diagnosis [facility] Diagnosis: ICD-10-CM G47.33 Obstructive sleep apnea (adult) (pediatric) Active Diagnosis [facility] Medications Combined list of outpatient medications from Department of Defense and Veterans Affairs facilities.Medications provided include 1) outpatient medications from the last 15 months, and 2) patient-reported medications. Medication Details Route Status Patient Instructions Prescription Expires Prescription Number Last Dispense Date Ordering Provider Order Date Order Qty Source ALBUTEROL 100MCG/IPRA TROPIUM BR 20MCG/SPRAY INHALER,ORA L,4GM INHALE 1 PUFF BY MOUTH EVERY 4 HOURS NEEDED RESPIR ATORY (INHAL ATION) DISCONT INUED BY ERLIN Sherman 07/23/2025 [id number] 4 YESICA KANG 2023 1 [facility] ALBUTEROL 100MCG/IPRA TROPIUM BR 20MCG/SPRAY INHALER,ORA L,4GM INHALE 1 PUFF BY MOUTH EVERY 4 HOURS NEEDED RESPIR ATORY (INHAL ATION) DISCONT INUED 03/14/2025 [id number] 4 YESICA KANG 2023 1 [facility] ALBUTEROL 90MCG/ACTUA T (CFC-F) INHL,ORAL,8 .5GM DOSE COUNTER INHALE 2 PUFFS BY MOUTH EVERY 4 HOURS NEEDED FOR BRONCHOS PASM RESPIR ATORY (INHAL ATION) ACTIVE 11/06/2025 [id number] 5 YESICA KANG 2024 3 [facility] ALBUTEROL 90MCG/ACTUA T (CFC-F) INHL,ORAL,8 .5GM DOSE COUNTER INHALE 2 PUFFS BY MOUTH EVERY 4 HOURS NEEDED FOR BRONCHOS PASM RESPIR ATORY (INHAL ATION) DISCONT INUED BY PROVIDE R 11/08/2024 [id number] 4 YESICA KANG 2023 3 [facility] ALBUTEROL 90MCG/ACTUA T (CFC-F) INHL,ORAL,8 .5GM DOSE COUNTER INHALE 2 PUFFS BY MOUTH EVERY 4 HOURS NEEDED FOR BRONCHOS PASM RESPIR ATORY (INHAL ATION) DISCONT INUED (EDIT) 08/21/2024 [id number] 4 YESICA KANG 2022 1 [facility] ALBUTEROL SO4 0.083% INHL,3ML INHALE 1 AMPULE IN NEBULIZE R EVERY 4 HOURS NEEDED FOR BREATHIN G RESPIR ATORY (INHAL ATION) ACTIVE 09/04/2025 [id number] 4 YESICA KANG 2023 60 [facility] ALBUTEROL SO4 0.083% INHL,3ML INHALE 1 AMPULE IN NEBULIZE R EVERY 4 HOURS NEEDED FOR BREATHIN G RESPIR ATORY (INHAL ATION) DISCONT INUED 08/07/2024 [id number] 4 YESICA KANG 2022 60 [facility] ATORVASTATI N CA 80MG TAB TAKE ONE-HALF TABLET BY MOUTH DAILY ORAL ACTIVE WAGNER RODRIGUEZ 2016 [facility] CYANOCOBALA MIN 500MCG TAB TAKE FIVE TABLETS BY MOUTH DAILY ORAL ACTIVE LEEANNA BARKSDALE S 2013 [facility] DICLOFENAC NA 1% GEL,TOP APPLY 2 GRAMS TOPICALL Y FOUR TIMES A DAY FOR JOINT PAIN - USE DOSING CARD PROVIDED IN BOX TOPICA Oscar ACTIVE 11/06/2025 [id number] 5 YESICA KANG 2024 200 [facility] FLUTICASONE 500MCG/[place]AL[place] ETEROL 50MCG INHL,ORAL,D ISKUS,60 INHALE 1 PUFF BY MOUTH TWICE DAILY - RINSE MOUTH AFTER USE (REPLACE S SYMBICOR T INHALER. DOSE ADJUSTME NT MAY BE NEEDED IF YOU DEVELOP WORSENIN G BREATHIN G SYMPTOMS . CONTACT YOUR PROVIDER ) RESPIR ATORY (INHAL ATION) ACTIVE 09/04/2025 [id number] 5 YESICA KANG 2024 3 [facility] FLUTICASONE 500MCG/SALM ETEROL 50MCG INHL,ORAL,D ISKUS,60 INHALE 1 PUFF BY MOUTH TWICE DAILY - RINSE MOUTH AFTER USE (REPLACE S SYMBICOR T INHALER. DOSE ADJUSTME NT MAY BE NEEDED IF YOU DEVELOP WORSENIN G BREATHIN G SYMPTOMS . CONTACT YOUR PROVIDER ) RESPIR ATORY (INHAL ATION) [facility] 11/08[facility]2024 [id number] 4 YESICA KANG 2023 3 [facility] FLUTICASONE 500MCG/SALM ETEROL 50MCG INHL,ORAL,D ISKUS,60 INHALE 1 PUFF BY MOUTH TWICE DAILY - RINSE MOUTH AFTER USE (REPLACE S SYMBICOR T INHALER. DOSE ADJUSTME NT MAY BE NEEDED IF YOU DEVELOP WORSENIN G BREATHIN G SYMPTOMS . CONTACT YOUR PROVIDER ) RESPIR ATORY (INHAL ATION) DISCONT INUED 05/03/2024 [id number] 3 YESICA KANG 2022 3 [facility] FLUTICASONE NASAL SOLN,NASAL INSTILL INTO EACH NOSTRIL NASAL ACTIVE LEEANNA BARKSDALE NN S 2014 [facility] LISINOPRIL 5MG TAB TAKE ONE TABLET BY MOUTH DAILY ORAL ACTIVE RODRIGUEZ,BE M [facility] LORATADINE 10MG TAB TAKE ONE TABLET BY MOUTH DAILY ORAL ACTIVE RODRIGUEZ,BE M 2017 [facility] LORATADINE 10MG TAB TAKE ONE TABLET BY MOUTH DAILY ORAL ACTIVE LEEANNA BARKSDALE NN S [facility] OMEPRAZOLE 20MG CAP,EC TAKE TWO CAPSULES BY MOUTH EVERY MORNING 30 MINUTES BEFORE BREAKFAS T FOR EXCESSIV E PRODUCTI ON OF STOMACH ACID ORAL ACTIVE 11/06/2025 [id number] 5 YESICA KANG 2024 180 [facility] OMEPRAZOLE 20MG CAP,EC TAKE ONE CAPSULE BY MOUTH EVERY MORNING 30 MINUTES BEFORE BREAKFAS T FOR EXCESSIV E PRODUCTI ON OF STOMACH ACID ORAL DISCONT INUED (EDIT) 07/23/2025 [id number] 4 YESICA KANG 2023 90 [facility] OMEPRAZOLE 20MG CAP,EC TAKE ONE CAPSULE BY MOUTH TWICE DAILY ORAL DISCONT INUED 04/30/2024 [id number] 4 JAIME RAMOS 2023 180 [facility] OMEPRAZOLE 20MG CAP,EC TAKE ONE CAPSULE BY MOUTH TWICE DAILY ORAL DISCONT INUED 11/15/2023 [id number] 3 YESICA KANG 2022 180 [facility] OMEPRAZOLE 20MG CAP,EC TAKE ONE CAPSULE BY MOUTH TWICE DAILY ORAL 07/10/2024 [id number] 4 YESICA KANG 2023 180 [facility] SILDENAFIL CITRATE 100MG TAB TAKE ONE TABLET BY MOUTH NEEDED TAKE 1 HOUR PRIOR TO SEXUAL ACTIVITY ORAL ACTIVE 09/04/2025 [id number] 4 YESICA KANG 2023 18 [facility] SILDENAFIL CITRATE 100MG TAB TAKE ONE TABLET BY MOUTH NEEDED TAKE 1 HOUR PRIOR TO SEXUAL ACTIVITY ORAL DISCONT INUED 08/21/2024 [id number] 4 YESICA KANG 2022 6 [facility] ZAFIRLUKAST 20MG TAB TAKE ONE TABLET BY MOUTH TWICE DAILY ORAL SUSPEND ED 04/12/2025 [id number] 5 YESICA KANG 2023 180 [facility] ZAFIRLUKAST 20MG TAB TAKE ONE TABLET BY MOUTH TWICE DAILY ORAL DISCONT INUED 05/03/2024 [id number] 4 YESICA KANG 2022 180 [facility] Immunizations Combined list of available immunizations from the Department of Defense and Veterans Affairs facilities. Immunization Series Date Given Administered By Site Reaction Lot Number CVX Code Drug Cook Morning Status Comments Source INFLUENZA, UNSPECIFIED FORMULATION 2023 88 complet ed per [facility] 2023 DAIANA BECK NAMITA LEFT DELTO ID [id number] 115 complet ed [facility] INFLUENZA, UNSPECIFIED FORMULATION 2022 88 complet ed [facility] ZOSTER RECOMBINANT 1 2021 187 complet ed [facility] COVID-19 (MODERNA), MRNA, LNP-S, PF, 100 MCG/0.5 ML DOSE 2 2020 207 complet ed MOD; [id number]; [place] COVID-19 (MODERNA), MRNA, LNP-S, PF, 100 MCG/0.5 ML DOSE 1 2020 207 complet ed MOD; [id number]; 1 [place] INFLUENZA, UNSPECIFIED FORMULATION 2019 88 complet ed [facility] INFLUENZA, SEASONAL, INJECTABLE 2017 141 complet ed [facility] INFLUENZA, SEASONAL, INJECTABLE 2016 141 complet ed Outside PCP [facility] FLU,3 YRS (HISTORICAL) 2015 88 complet ed [facility] PNEUMOCOCCAL CONJUGATE PCV 13 2015 133 complet ed y [facility] FLU,3 YRS (HISTORICAL) 2013 88 complet ed [facility] FLU,3 YRS (HISTORICAL) 2012 88 complet ed [facility] ZOSTER (HISTORICAL) 2012 121 complet ed [facility] PNEUMOCOCCAL, UNSPECIFIED FORMULATION 2012 109 complet ed [facility] FLU,3 YRS (HISTORICAL) 2011 88 complet ed [facility] FLU,3 YRS (HISTORICAL) 2010 88 complet ed [facility] DTAP, UNSPECIFIED FORMULATION 2010 107 complet ed Site: Left Deltoid [facility] FLU,3 YRS (HISTORICAL) 2009 88 complet ed [facility] NOVEL INFLUENZA-H1N 1-09, ALL FORMULATIONS 2009 128 complet ed [employer] [facility] FLU,3 YRS (HISTORICAL) 2008 88 complet ed [facility] FLU,3 YRS (HISTORICAL) 2007 88 complet ed Site: Left Deltoid [facility] FLU,3 YRS (HISTORICAL) 2006 88 complet ed [facility] PNEUMOCOCCAL, UNSPECIFIED FORMULATION 2001 109 complet ed [facility] Results Combined list of recent chemistry, hematology and other laboratory results from Department of Defense and Veterans Affairs, ranging from 15 months to all on record, depending upon the facility. Order Name Results Value Reference Range Date Interpretation Specimen Comments Source BASIC METABOLIC PANEL (non-fast ing) UREA NITROGEN [MASS/VOLUM E] IN SERUM OR PLASMA 19 mg/dL 7 - 25 10/31 Specimen Type: SERUM No comment entered. Ordering Provider: SAMIR KANG Report Released Date/Time: Oct 20, 2024 01:26 PM Reporting Lab: [facility] [address] Performing Lab: [facility] [address] [facility]ITALUSE [facility] BASIC METABOLIC PANEL (non-fast ing) GLUCOSE [MASS/VOLUM E] IN SERUM OR PLASMA 105 mg/dL 65 - 100 10/31 H Specimen Type: SERUM No comment entered. Ordering Provider: SAMIR KANG Report Released Date/Time: Oct 20, 2024 01:26 PM Reporting Lab: [facility] [address] Performing Lab: [facility]ITALUSER[facility] [address] [facility] [address] [facility]ITALUSE [facility] BASIC METABOLIC PANEL (non-fast ing) SODIUM [MOLES/VOLU ME] IN SERUM OR PLASMA 139 mmol/L 135 - 145 10/31 Specimen Type: SERUM No comment entered. Ordering Provider: SAMIR KANG Report Released Date/Time: Oct 20, 2024 01:26 PM Reporting Lab: [facility] [address] Performing Lab: [facility] [address] [facility]ITALUSE [facility] BASIC METABOLIC PANEL (non-fast ing) POTASSIUM [MOLES/VOLU ME] IN SERUM OR PLASMA 4.3 mmol/L 3.5 - 5.0 10/31 Specimen Type: SERUM No comment entered. Ordering Provider: SAMIR KANG Report Released Date/Time: Oct 20, 2024 01:26 PM Reporting Lab: [facility] HIGHLANDSTRN [facility]OSPITALUSETS [address] [address] Performing Lab: [facility]ITALRLAKELAND COMMUNITY HOSPITALN [address] [address] [facility] HIGHLANDSTRN [facility]ITALUSE [facility] BASIC METABOLIC PANEL (non-fast ing) CHLORIDE [MOLES/VOLU ME] IN SERUM OR PLASMA 104 mmol/L 100 - 110 10/31 Specimen Type: SERUM No comment entered. Ordering Provider: SAMIR KANG Report Released Date/Time: Oct 20, 2024 01:26 PM Reporting Lab: [facility] [address] [address] Performing Lab: [facility]OSPITALRLAKELAND COMMUNITY HOSPITALN [facility]USE[address] [address] [facility]ITALRLAKELAND COMMUNITY HOSPITALN [facility]ITALUSE [facility] BASIC METABOLIC PANEL (non-fast ing) CARBON DIOXIDE, TOTAL [MOLES/VOLU ME] IN SERUM OR PLASMA 26 meq/L 20 - 30 10/31 Specimen Type: SERUM No comment entered. Ordering Provider: SAMIR KANG Report Released Date/Time: Oct 20, 2024 01:26 PM Reporting Lab: [facility] [address] Performing Lab: [facility]ITAL[facility] HIGHLANDSTRN [facility]ITALUSE[address] [address] [facility]ITALRLAKELAND COMMUNITY HOSPITALN [facility]ITALUSE [facility] BASIC METABOLIC PANEL (non-fast ing) CREATININE [MASS/VOLUM E] IN SERUM OR PLASMA 1.11 mg/dL 0.50 - 1.40 10/31 Specimen Type: SERUM No comment entered. Ordering Provider: SAMIR KANG Report Released Date/Time: Oct 20, 2024 01:26 PM Reporting Lab: [facility]ITAL[facility] HIGHLANDSTRN [facility]ITALUSE[address] [address] Performing Lab: [facility]ITALRL [facility] [place] [facility] [address] [address] [facility]OSPITALRL TRN [place] [facility] BASIC METABOLIC PANEL (non-fast ing) GLOMERULAR FILTRATION RATE/1.73 SQ M.PREDICTED [VOLUME RATE/AREA] IN SERUM, PLASMA OR BLOOD BY CREATININE- BASED FORMULA (CKD-EPI 2020) 68 mL/min 60 10/31 Specimen Type: SERUM No comment entered. Ordering Provider: SAMIR KANG Report Released Date/Time: Oct 20, 2024 01:26 PM Reporting Lab: [facility] [place] [facility] [address] [address] Performing Lab: [facility]OSPITALRL TRN [facility]OSPITALUSETS [address] [address] [facility]OSPITALRLAKELAND COMMUNITY HOSPITALN [facility] CENTERCHUSE [facility] CBC LEUKOCYTES [#/VOLUME] IN BLOOD BY AUTOMATED COUNT 9.45 10*3/u L 4.50 - 11.00 10/31 Specimen Type: BLOOD No comment entered. Ordering Provider: SAMIR KANG Report Released Date/Time: Oct 20, 2024 01:26 PM Reporting Lab: [facility]ITALRL TRN [facility]OSPITALUSETS [facility] [address] [address] Performing Lab: [facility]OSPITALRL TRN [facility]OSPITALUSETS [address] [address] [facility]OSPITALRLAKELAND COMMUNITY HOSPITALN [facility] CENTERCHUSE [facility] CBC ERYTHROCYTE S [#/VOLUME] IN BLOOD BY AUTOMATED COUNT 3.91 10*6/u L 4.23 - 5.66 10/31 L Specimen Type: BLOOD No comment entered. Ordering Provider: SAMIR KANG Report Released Date/Time: Oct 20, 2024 01:26 PM Reporting Lab: [facility] [place] [address] [address] Performing Lab: [facility]ITALRL TRN [facility]ITALUSETS [address] [address] [facility]OSPITALRLAKELAND COMMUNITY HOSPITALN [facility]CHUSE [facility] CBC HEMOGLOBIN [MASS/VOLUM E] IN BLOOD 10.9 g/dL 12.8 - 17 10/31 L Specimen Type: BLOOD No comment entered. Ordering Provider: SAMIR KANG Report Released Date/Time: Oct 20, 2024 01:26 PM Reporting Lab: [facility] [address] [facility] [facility] [address] Performing Lab: [facility] [facility] [address] [facility] [address] [facility] [place] [facility] CBC HEMATOCRIT [VOLUME FRACTION] OF BLOOD BY AUTOMATED COUNT 34.3 39.2 - 50.4 10/31 L Specimen Type: BLOOD No comment entered. Ordering Provider: SAMIR KANG Report Released Date/Time: Oct 20, 2024 01:26 PM Reporting Lab: [facility] [place] [facility] [address] [address] Performing Lab: [facility] [place] [facility] [address] [address] [facility] [place] [facility] CBC MCV [ENTITIC VOLUME] BY AUTOMATED COUNT 87.7 fL 82 - 99 10/31 Specimen Type: BLOOD No comment entered. Ordering Provider: SAMIR KANG Report Released Date/Time: Oct 20, 2024 01:26 PM Reporting Lab: [facility] [place] [facility] [address] [address] Performing Lab: [facility] [place] [facility] [address] [address] [facility] [place] [facility] CBC MCHC [MASS/VOLUM E] BY AUTOMATED COUNT 31.8 g/dL 30.8 - 35.1 10/31 Specimen Type: BLOOD No comment entered. Ordering Provider: SAMIR KANG Report Released Date/Time: Oct 20, 2024 01:26 PM Reporting Lab: [facility] [place] [facility] [address] [facility] [address] Performing Lab: [facility] [place] [facility] [address] [address] [facility] [place] [facility] CBC PLATELETS [#/VOLUME] IN BLOOD BY AUTOMATED COUNT 262 10*3/u L 140 - 360 10/31 Specimen Type: BLOOD No comment entered. Ordering Provider: SAMIR KANG Report Released Date/Time: Oct 20, 2024 01:26 PM Reporting Lab: [facility] [place] [facility] [address] [facility] [address] Performing Lab: [facility] [place] [facility] [address] [facility] [facility] [address] [facility] [place] [facility] CBC ERYTHROCYTE DISTRIBUTIO N WIDTH [RATIO] BY AUTOMATED COUNT 15.0 12.0 - 16.0 10/31 Specimen Type: BLOOD No comment entered. Ordering Provider: SAMIR KANG Report Released Date/Time: Oct 20, 2024 01:26 PM Reporting Lab: [facility] [place] [facility] [address] [facility] [address] Performing Lab: [facility] [place] [address] [address] [facility] [place] [facility] CBC MCH [ENTITIC MASS] BY AUTOMATED COUNT 27.9 pg 26.2 - 32.6 10/31 Specimen Type: BLOOD No comment entered. Ordering Provider: SAMIR KANG Report Released Date/Time: Oct 20, 2024 01:26 PM Reporting Lab: [facility] [place] [facility] [address] [address] Performing Lab: [facility] [place] [address] [address] [facility] [place] [facility] FERRITIN FERRITIN [MASS/VOLUM E] IN SERUM OR PLASMA 4 ng/mL 20 - 300 10/31 L Specimen Type: SERUM No comment entered. Ordering Provider: SAMIR KANG Report Released Date/Time: Oct 20, 2024 01:26 PM Reporting Lab: [facility] [place] [facility] [address] [facility] [facility] [address] Performing Lab: [facility] [place] [address] [address] [facility] [place] [facility] IRON & TIBC PANEL IRON BINDING CAPACITY [MASS/VOLUM E] IN SERUM OR PLASMA 428 ug/dL 204 - 475 10/31 Specimen Type: SERUM No comment entered. Ordering Provider: SAMIR KANG Report Released Date/Time: Oct 20, 2024 01:26 PM Reporting Lab: [facility] HIGHLANDSTRN [place] [facility] [address] [facility] [facility] [address] Performing Lab: [facility]ITALUSEROS[facility] [address] [facility] [address] [facility]PITALRLAKELAND COMMUNITY HOSPITALN MASSUSE [facility] IRON & TIBC PANEL IRON [MASS/VOLUM E] IN SERUM OR PLASMA 40 ug/dL 40 - 160 10/31 Specimen Type: SERUM No comment entered. Ordering Provider: SAMIR KANG Report Released Date/Time: Oct 20, 2024 01:26 PM Reporting Lab: [facility]USE[address] [address] Performing Lab: [facility]ITALUSE[address] [address] [facility] HOSPITALUSE [facility] IRON & TIBC PANEL IRON/IRON BINDING CAPACITY.TO JARED [MASS RATIO] IN SERUM OR PLASMA 9.4 20.0 - 50.0 10/31 L Specimen Type: SERUM No comment entered. Ordering Provider: SAMIR KANG Report Released Date/Time: Oct 20, 2024 01:26 PM Reporting Lab: [facility]USE[address] [address] Performing Lab: [facility]ITALRLA[facility]N [facility]USE[address] [phone] [facility]USE [facility] IRON & TIBC PANEL TRANSFERRIN [MASS/VOLUM E] IN SERUM OR PLASMA 324 mg/dL 200 - 360 10/31 Specimen Type: SERUM No comment entered. Ordering Provider: SAMIR KANG Report Released Date/Time: Oct 20, 2024 01:26 PM Reporting Lab: [facility]USE[address] [phone] Performing Lab: [facility]ITALUSE[address] [address] [facility]ITALRU[facility] HIGHLANDSTRN [place]USE [facility] LIPID PANEL, NON FASTING CHOLESTEROL [MASS/VOLUM E] IN SERUM OR PLASMA 153 mg/dL 10/31 Specimen Type: SERUM No comment entered. Ordering Provider: SAMIR KANG Report Released Date/Time: Oct 20, 2024 01:26 PM Reporting Lab: [facility] HIGHLANDSTRN MASSUSE[address] [address] Performing Lab: [facility]ITALR WSTRN MASSUSETS [address] [address] [facility]ITALRLAKELAND COMMUN[facility] HOSPITALN MASSUSE [facility] LIPID PANEL, NON FASTING TRIGLYCERID E [MASS/VOLUM E] IN SERUM OR PLASMA 138 mg/dL 0 - 150 10/31 Specimen Type: SERUM No comment entered. Ordering Provider: SAMIR KANG Report Released Date/Time: Oct 20, 2024 01:26 PM Reporting Lab: [facility] [place] [address] [address] Performing Lab: [facility] [place] [address] [address] [facility] LIPID PANEL, NON FASTING CHOLESTEROL IN LDL [MASS/VOLUM E] IN SERUM OR PLASMA BY CALCULATION 87 mg/dL 0 - 129 10/31 Specimen Type: SERUM No comment entered. Ordering Provider: SAMIR KANG Report Released Date/Time: Oct 20, 2024 01:26 PM Reporting Lab: [facility] [place] [place] [address] [address] Performing Lab: [facility] [place] [address] [address] [facility] [place] [facility] LIPID PANEL, NON FASTING CHOLESTEROL .TOTAL/CHOL ESTEROL IN HDL [MASS RATIO] IN SERUM OR PLASMA 4.0 10/31 Specimen Type: SERUM No comment entered. Ordering Provider: SAMIR KANG Report Released Date/Time: Oct 20, 2024 01:26 PM Reporting Lab: [facility] [address] Performing Lab: [facility] [place] [facility] [address] [facility] [address] [facility] LIPID PANEL, NON FASTING CHOLESTEROL IN HDL [MASS/VOLUM E] IN SERUM OR PLASMA 38 mg/dL 40 - 60 10/31 L Specimen Type: SERUM No comment entered. Ordering Provider: SAMIR KANG Report Released Date/Time: Oct 20, 2024 01:26 PM Reporting Lab: [facility] [place] [facility] [address] [facility] [facility] [address] Performing Lab: [facility] [address] [facility] [address] [facility] LIVER FUNCTION PROTEIN [MASS/VOLUM E] IN SERUM OR PLASMA 6.8 g/dL 6.0 - 8.3 10/31 Specimen Type: SERUM No comment entered. Ordering Provider: SAMIR KANG Report Released Date/Time: Oct 20, 2024 01:26 PM Reporting Lab: [facility] [place] [facility] [address] [facility] [facility] [address] Performing Lab: [facility] [address] [facility] [address] [facility] LIVER FUNCTION ALBUMIN [MASS/VOLUM E] IN SERUM OR PLASMA 3.8 g/dL 3.5 - 5.0 10/31 Specimen Type: SERUM No comment entered. Ordering Provider: SAMIR KANG Report Released Date/Time: Oct 20, 2024 01:26 PM Reporting Lab: [facility] [place] [facility] [address] [facility] [facility] [address] Performing Lab: [facility] [address] [facility] [address] [facility] LIVER FUNCTION ALKALINE PHOSPHATASE [ENZYMATIC ACTIVITY/VO LUME] IN SERUM OR PLASMA 91 U/L 40 - 150 10/31 Specimen Type: SERUM No comment entered. Ordering Provider: SAMIR KANG Report Released Date/Time: Oct 20, 2024 01:26 PM Reporting Lab: [facility] [place] [facility] [address] [facility] [address] Performing Lab: [facility] [place] [facility] [address] [facility] [address] [facility] [place] [facility] LIVER FUNCTION ASPARTATE AMINOTRANSF ERASE [ENZYMATIC ACTIVITY/VO LUME] IN SERUM OR PLASMA 20 U/L 5 - 34 10/31 Specimen Type: SERUM No comment entered. Ordering Provider: SAMIR KANG Report Released Date/Time: Oct 20, 2024 01:26 PM Reporting Lab: [facility] [place] [facility] [address] [facility] [facility] [address] Performing Lab: [facility] [place] [facility] [address] [facility] [address] [facility] [place] [facility] LIVER FUNCTION ALANINE AMINOTRANSF ERASE [ENZYMATIC ACTIVITY/VO LUME] IN SERUM OR PLASMA 19 U/L 10/31 Specimen Type: SERUM No comment entered. Ordering Provider: SAMIR KANG Report Released Date/Time: Oct 20, 2024 01:26 PM Reporting Lab: [facility] [place] [facility] [address] [facility] [facility] [address] Performing Lab: [facility] [place] [facility] [address] [facility] [facility] [address] [facility] [place] [facility] LIVER FUNCTION BILIRUBIN.T OTAL [MASS/VOLUM E] IN SERUM OR PLASMA 0.5 mg/dL 0.2 - 1.2 10/31 Specimen Type: SERUM No comment entered. Ordering Provider: SAMIR KANG Report Released Date/Time: Oct 20, 2024 01:26 PM Reporting Lab: [facility] [place] [facility] [address] [facility] [facility] [address] Performing Lab: [facility] [place] [facility] [address] [facility] [facility] [address] [facility] [place] [facility] VITAMIN B12 COBALAMIN (VITAMIN B12) [MASS/VOLUM E] IN SERUM OR PLASMA 623 pg/mL 200 - 900 10/31 Specimen Type: SERUM No comment entered. Ordering Provider: SAMIR KANG Report Released Date/Time: Oct 20, 2024 01:26 PM Reporting Lab: [facility] [place] [facility] [address] [facility] [address] Performing Lab: [facility] [place] [facility] [address] [facility] [address] [facility] [place] FERRITIN FERRITIN [MASS/VOLUM E] IN SERUM OR PLASMA 57 ng/mL 20 - 300 05/05 Specimen Type: SERUM No comment entered. Ordering Provider: SAMIR KANG Report Released Date/Time: May 05, 2024 10:21 AM Reporting Lab: [facility] [place] [facility] [address] [facility] [address] Performing Lab: [facility] [place] [facility] [address] [facility] [address] [facility] [place] IRON & TIBC PANEL IRON BINDING CAPACITY [MASS/VOLUM E] IN SERUM OR PLASMA 381 ug/dL 204 - 475 05/05 Specimen Type: SERUM No comment entered. Ordering Provider: SAMIR KANG Report Released Date/Time: May 05, 2024 10:21 AM Reporting Lab: [facility] [place] [facility] [address] [facility] [address] Performing Lab: [facility] [place] [facility] [address] [facility] [facility] [address] [facility] [place] IRON & TIBC PANEL IRON [MASS/VOLUM E] IN SERUM OR PLASMA 58 ug/dL 40 - 160 05/05 Specimen Type: SERUM No comment entered. Ordering Provider: SAMIR KANG Report Released Date/Time: May 05, 2024 10:21 AM Reporting Lab: [facility] [place] [facility] [address] [facility] [address] Performing Lab: [facility] [place] [facility] [address] [facility] [facility] [address] [facility] [place] IRON & TIBC PANEL IRON/IRON BINDING CAPACITY.TO JARED [MASS RATIO] IN SERUM OR PLASMA 15.2 20.0 - 50.0 05/05 L Specimen Type: SERUM No comment entered. Ordering Provider: SAMIR KAGN Report Released Date/Time: May 05, 2024 10:21 AM Reporting Lab: [facility] [place] [facility] [address] [facility] [address] Performing Lab: [facility] [place] [facility] [address] [facility] [facility] [address] [facility] [place] [facility] VITAMIN B12 COBALAMIN (VITAMIN B12) [MASS/VOLUM E] IN SERUM OR PLASMA 885 pg/mL 200 - 900 05/05 Specimen Type: SERUM No comment entered. Ordering Provider: SAMIR KANG Report Released Date/Time: May 05, 2024 10:21 AM Reporting Lab: [facility] [place] [facility] [address] [facility] [facility] [address] Performing Lab: [facility] [place] [facility] [address] [facility] [facility] [address] [facility] [place] [facility] Vital Signs Combined list of inpatient and outpatient Vital Signs from Department of Defense and Veterans Affairs, ranging from 12 months to all on record, depending upon the facility. Vital Sign Value Date Comments Source SYSTOLIC BLOOD PRESSURE 126 11/05/19 25 10:44:14 [facility] [place] [facility] DIASTOLIC BLOOD PRESSURE 72 025 10:44:14 [facility] [place] [facility] PULSE OXIMETRY 99 11/05/2024 10:44:14 [facility] [place] [facility] WEIGHT 210 11/05/2024 10:44:14 [facility] [place] [facility] BMI 31kg/m2 11/05/2024 10:44:14 [facility] PAIN 6 11/05/2024 10:44:14 [facility] [place] [facility] HEIGHT 69 11/05/2024 10:44:14 [facility] [place] [facility] TEMPERATURE 98.1 11/05/2024 10:44:14 [facility] PULSE 98 11/05/2024 10:44:14 [facility] RESPIRATION 20 11/05/2024 10:44:14 [facility] [place] SYSTOLIC BLOOD PRESSURE 149 05/05/20 10:03:48 [facility] [place] DIASTOLIC BLOOD PRESSURE 83 05/05/ 024 10:03:48 [facility] PULSE OXIMETRY 96 05/05/2024 10:03:48 [facility] WEIGHT 213 05/05/2024 10:03:48 [facility] BMI 32kg/m2 05/05/2024 10:03:48 [facility] PAIN 5 05/05/2024 10[facility]03:48 [facility] HEIGHT 69 05/05/2024 10:03:48 [facility] TEMPERATURE 98.4 05/05/2024 10:03:48 [facility] [facility] PULSE 100 05/05/2024 10:03:48 [facility] [place] RESPIRATION 20 05/05/2024 10:03:48 [facility] [place] [facility] Encounters Combined list of: 1) Encounters from Department of Veterans Affairs facilities going back up to thelast 18 months. 2) Encounters from the Department of Defense facilities going back up to 280 months. Location Location Details Encounter Type Encounter Number Reason For Visit Attending Provider ADM Date DC Date Status Disposition Source [facility] En[facility] [id number] 05/29 [facility]counter [id number] 07/06 [facility]counter [id number] 07/17 [facility]counter [id number] 07/27 [facility]counter [id number] 07/29 [facility] [id number] 08/03 [facility] Encounter [id number] 08/21 [facility] OFFICE O/P EST MOD 30 MIN [id number] Diagnos is: ICD-10- CM G47.33 Obstruc tive sleep apnea (adult) ([facility])
Hortencia KANG 11/08 [facility] En[facility] [id number] 01/30 [facility] En[facility] [id number] 01/30 [facility] Encounter [id number] 03/13 [facility] Encounter [id number] 04/10 [facility] COMPRE OPH EXAM EST PT 1/> [id number] Diagnos is: ICD-10- CM H25.813 Combine d forms of age-rel ated catarac t, bilater al
ERWIN BARROS E 04/11 [facility] [place] [place] [facility] FIT SPECTACLES BIFOCAL [id number] Diagnos is: ICD-10- CM Z46.0 Encount er for fit/adj st of spectac les and contact lenses< br/> ERWIN BARROS 04/11 [facility] [place] [facility] [place] OFFICE O/P EST MOD 30 MIN [id number] Diagnos is: ICD-10- CM M16.9 Osteoar thritis of hip, unspeci fied
Hortencia KANG 05/05 [facility] [place] [facility] [place] Outpatient Encounter [id number] 05/13 [facility] [place] [place] [place] [facility] INTRAORAL PERIAPICAL EA ADD [id number] Diagnos is: ICD-10- CM K05.30 Chronic periodo ntitis, unspeci fied
MELY GARZA 05/14 [facility] [place] [facility] [place] Outpatient Encounter [id number] 05/19 [facility] [place] [facility] [place] [facility] Outpatient Encounter [id number] 07/03 [facility] [place] [facility] [place] [facility] CASE MGMT-ORAL HEALTH LIT [id number] Diagnos is: ICD-10- CM K03.6 Deposit s [accret ions] on teeth<b r/> BELYSHEV,N ADEZHDA 07/04 [facility] [place] [place] [facility] Outpatient Encounter [id number] 07/21 [facility] [place] [facility] [place] [facility] Outpatient Encounter [id number] 08/07 [facility] [place] [facility] [place] [facility] Outpatient Encounter [id number] 1.09/02 [facility] [place] [facility] [place] [facility] OFFICE O/P EST HI 40 MIN [id number] Diagnos is: ICD-10- CM R25.1 Tremor, unspeci fied
Hortencia KANG 11/05 [facility] [place] [facility] Social History Combined list of available smoking, tobacco, and other social history from Department of Defense and Veterans Affairs facilities. Social History Type Response Date Comment [facility] e Tobacco smoking status NHIS VA-TOBACCO FORMER USER 05/05/2024 [facility] History of tobacco use VA-TOBACCO QUIT 15 YRS OR MORE 05/05/2024 [facility] History of tobacco use VA-TOBACCO FORMER USER 05/03/2023 [facility] [place] History of tobacco use VA-TOBACCO FORMER USER 05/10/2022 [facility] History of tobacco use VA-TOBACCO FORMER USER 04/13/2021 [facility] History of tobacco use VA-TOBACCO QUIT 15 YRS OR MORE 02/04/2020 [facility] History of tobacco use VA-TOBACCO NEVER USED 03/11/2019 [facility] History of tobacco use QUIT TOBACCO USE > 7 YEARS AGO 04/01/2018 [facility] [facility] History of tobacco use QUIT TOBACCO USE > 7 YEARS AGO 04/27/2017 [facility] [place] [place] [facility] History of tobacco use LIFETIME NON-TOBACCO USER 05/03/2016 [facility] [place] [facility] History of tobacco use HISTORY OF SMOKING 12/29/2004 [facility] [place] [facility] History of tobacco use HISTORY OF SMOKING 12/28/2003 [facility] [place] [facility] History of tobacco use HISTORY OF SMOKING 12/08/2002 [facility] [place] [facility] History of tobacco use QUIT TOBACCO USE > 7 YEARS AGO 06/09/2002 [facility] [place] [facility] History of tobacco use NON-TOBACCO USER 12/09/2001 [facility] [place] [facility] Plan of Care List of future care activities from Department of [facility] Affairs facilities. Additional future care activities may be listed in the Assessment and Plan section. Date/Time Care Activity Care Activity Detail Facili ty 11/27/2024 AMBULATORY - MEDICINE AMBULATORY - MEDICI NE [facility] [place] [facility] 01/02/2025 AMBULATORY - NONE AMBULATORY - NONE [facility] [facility] 04/13/2025 AMBULATORY - MEDICINE AMBULATORY - MEDICI NE [facility] [place] [facility] 05/06/2025 AMBULATORY - MEDICINE AMBULATORY - MEDICI NE [facility] [place] [facility] 11/10/2024 Consult Order COMMUNITY CARE-D ENTAL SPECIALTY Cons [employer] [facility] [place] [facility]
== END 2024-11-27 13:28 | disposition home or self-care (01) ==
PROVIDERS: PCP Internal Medicine Endocrinology, Diabetes & Metabolism; Visit Provider Psychiatry & Neurology Neurology
DX: G25.2 Other specified forms of tremor (principal); R26.9 Unspecified abnormalities of gait and mobility
CPT/HCPCS: 99204; G2211

== ENCOUNTER → 2024-11-27 12:42 | Outpatient (BNVA) | payer OTHER, SELFPAY | PROVIDERS: PCP Internal Medicine Endocrinology, Diabetes & Metabolism; Visit Provider Psychiatry & Neurology Neurology | DX: G25.2 Other specified forms of tremor (principal); R26.9 Unspecified abnormalities of gait and mobility | CPT/HCPCS: 99202 ==

== ENCOUNTER → 2024-12-21 11:14 | Outpatient (BNV) | payer OTHER, SELFPAY | PROVIDERS: PCP Nurse Practitioner Family; Visit Provider Specialist | DX: G25.2 Other specified forms of tremor (principal) | CPT/HCPCS: 70551 ==

== ENCOUNTER 2024-12-21 11:23 | Outpatient (REF) | payer OTHER, SELFPAY ==
--- NOTE | ~2024-12-21 | MR_ITS ---
CLINICAL HISTORY: G25.2 - Other specified forms of tremor MR Brain without gadolinium Comparison: None Findings: No restricted diffusion. No intracranial mass or hemorrhage. No midline shift. No hydrocephalus. Vascular flow voids are intact. The orbits are normal. The sinuses and mastoid air cells are clear. No focal bone lesion. IMPRESSION: No acute findings. This document has been electronically signed by: Lex Torres MD on 12/22/2024 08:48:28
--- OUTSIDE RECORDS SUMMARY | 2024-12-21 11:26 | XMS_ITS | Continuity of Care Document ---
Author Name [facility] Organization [facility] Care Team Providers Care Medical Laboratory Technicians Name Role Phone [facility] Unavailable Unavailable Problems Combined list of problems from Department of Defense and Veterans Affairs facilities. It does not include entries that were removed or entered in error. 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 [facility] Exposure to potentially hazardous substance Active Condition Feb 01, 2024 Entered By: NIK SRIVASTAVA Comment: DESHAWN Screening Snomed Code connected 05/03/23 [facility] Gastroesophageal reflux disease (SNOMED CT 282227270) Active Condition [facility] History of male erectile disorder Active Condition [facility] Hyperlipidemia (SNOMED CT 77785409) Active Condition [facility] Nasal Polyps Active Condition [facility] Obstructive Sleep Apnea of Adult (SCT 3418611178301) Active Condition [facility] [...] Comment: records pending- [facility] Steatosis of liver Active Condition [facility] Tremor Active Condition [facility] 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 Condition [facility] Diagnosis: ICD-10-CM R25.1 Tremor, unspecified Active Diagnosis [facility] Diagnosis: ICD-10-CM K03.6 Deposits [accretions] on teeth Active [facility] Diagnosis: ICD-10-CM K05.30 Chronic periodontitis, unspecified Active [facility] Diagnosis: ICD-10-CM M16.9 Osteoarthritis of hip, unspecified Active Diagnosis [facility] Diagnosis: ICD-10-CM Z46.0 Encounter for fit/adjst of spectacles and contact lenses Active Diagnosis [facility] Diagnosis: ICD-10-CM H25.813 Combined forms of age-related cataract, bilateral Active Diagnosis [facility] Diagnosis: ICD-10-CM G47.33 Obstructive sleep apnea (adult) (pediatric) [facility] Medications Combined list of outpatient [...] ATION) DISCONT INUED BY ERLIN Sherman 07/23/2025 [id number] YESICA KANG 2023 1 [facility] ALBUTEROL 100MCG/IPRA TROPIUM BR 20MCG/SPRAY INHALER,ORA L,4GM INHALE 1 PUFF BY MOUTH EVERY 4 HOURS NEEDED RESPIR ATORY (INHAL ATION) DISCONT INUED 03/14/2025 [id number] 4 YSEICA KANG 2023 1 [facility] ALBUTEROL 90MCG/ACTUA T (CFC-F) INHL,ORAL,8 .5GM DOSE COUNTER INHALE 2 PUFFS BY MOUTH EVERY 4 HOURS NEEDED FOR BRONCHOS PASM RESPIR ATORY (INHAL ATION) ACTIVE 11/06/2025 [id number] 5 YESICA KANG 2024 3 [facility] ALBUTEROL 90MCG/ACTUA T (CFC-F) INHL,ORAL,8 .5GM DOSE COUNTER INHALE 2 PUFFS BY MOUTH EVERY 4 HOURS NEEDED FOR BRONCHOS PASM RESPIR ATORY (INHAL ATION) DISCONT INUED BY PROVIDE R 11/08/2024 [id number] 4 YESICA KANG 2023 3 [facility] ALBUTEROL 90MCG/ACTUA T (CFC-F) INHL,ORAL,8 .5GM DOSE COUNTER INHALE 2 PUFFS BY MOUTH EVERY 4 HOURS NEEDED FOR BRONCHOS PASM RESPIR ATORY (INHAL ATION) DISCONT INUED (EDIT) 08/21/2024 [id number] 4 YESIAC KANG 2022 1 [facility] ALBUTEROL SO4 0.083% INHL,3ML INHALE 1 AMPULE IN NEBULIZE R EVERY 4 HOURS NEEDED FOR BREATHIN G RESPIR ATORY (INHAL ATION) ACTIVE 09/04/2025 [id number] 4 YESICA KANG 2023 60 [facility] ALBUTEROL SO4 0.083% INHL,3ML INHALE 1 AMPULE IN NEBULIZE R EVERY 4 HOURS NEEDED FOR BREATHIN G RESPIR ATORY (INHAL ATION) DISCONT INUED 08/07/2024 [id number] 4 YESICA KANG 2022 60 [facility] ATORVASTATI N CA 80MG TAB TAKE ONE-HALF TABLET BY MOUTH DAILY ORAL ACTIVE RODRIGUEZ,BE TH M 2016 [facility] CYANOCOBALA MIN 500MCG TAB TAKE FIVE TABLETS BY MOUTH DAILY ORAL ACTIVE ZASHIN,LY NN S 2013 [facility] DICLOFENAC NA 1% GEL,TOP APPLY 2 GRAMS TOPICALL Y FOUR TIMES A DAY FOR JOINT PAIN - USE DOSING CARD PROVIDED IN BOX TOPICA L ACTIVE 11/06/2025 [id number] 5 YESICA KANG 2024 200 [facility] FLUTICASONE 500MCG/SALM ETEROL 50MCG INHL,ORAL,D ISKUS,60 INHALE 1 PUFF BY MOUTH TWICE DAILY - RINSE MOUTH AFTER USE (REPLACE S SYMBICOR T INHALER. DOSE ADJUSTME NT MAY BE NEEDED IF YOU DEVELOP WORSENIN G BREATHIN G SYMPTOMS . CONTACT YOUR PROVIDER ) RESPIR ATORY (INHAL ATION) ACTIVE 09/04/2025 [id number] 5 YESICA KANG 2024 3 [facility] FLUTICASONE 500MCG/SALM ETEROL 50MCG INHL,ORAL,D ISKUS,60 INHALE 1 PUFF BY MOUTH TWICE DAILY - RINSE MOUTH AFTER USE (REPLACE S SYMBICOR T INHALER. DOSE ADJUSTME NT MAY BE NEEDED IF YOU DEVELOP WORSENIN G BREATHIN G SYMPTOMS . CONTACT YOUR PROVIDER ) RESPIR ATORY (INHAL ATION) DISCONT INUED 11/08/2024 [id number] 4 YESICA KANG 2023 3 [facility] FLUTICASONE NASAL SOLN,NASAL INSTILL INTO EACH NOSTRIL NASAL ACTIVE ZASHIN,LY NN S 2014 [facility] LISINOPRIL 5MG TAB TAKE ONE TABLET BY MOUTH DAILY ORAL ACTIVE RODRIGUEZ,BE TH M 2015 [facility] LORATADINE 10MG TAB TAKE ONE TABLET BY MOUTH DAILY ORAL ACTIVE RODRIGUEZ, TH M 2017 [facility] LORATADINE 10MG TAB TAKE ONE TABLET BY MOUTH DAILY ORAL ACTIVE SHAMIRLEEANNA HANS S 2012 [facility] OMEPRAZOLE 20MG CAP,EC TAKE TWO CAPSULES BY MOUTH EVERY MORNING 30 MINUTES BEFORE BREAKFAS T FOR EXCESSIV E PRODUCTI ON OF STOMACH ACID ORAL ACTIVE 11/06/2025 [id number] 5 YESICA KANG 2024 180 [facility] OMEPRAZOLE 20MG CAP,EC TAKE ONE CAPSULE BY MOUTH EVERY MORNING 30 MINUTES BEFORE BREAKFAS T FOR EXCESSIV E PRODUCTI ON OF STOMACH ACID ORAL DISCONT INUED (EDIT) 07/23/2025 [id number] 4 YESICA KANG 2023 90 [facility] OMEPRAZOLE 20MG CAP,EC TAKE ONE CAPSULE BY MOUTH TWICE DAILY ORAL DISCONT INUED 04/30/2024 [id number] 4 JA[facility] RAMOS 2023 [facility] OMEPR[facility] 20MG CAP,EC TAKE ONE CAPSULE BY MOUTH TWICE DAILY ORAL DISCONT INUED 11/15/2023 [id number] 3 YESICA KANG 2022 [facility] OMEPRAZOLE 20MG CAP,EC TAKE ONE CAPSULE BY MOUTH TWICE DAILY ORAL 07/10/2024 [id number] 4 YESICA KANG 2023 [facility] SILDENAFIL CITRATE 100MG TAB TAKE ONE TABLET BY MOUTH NEEDED TAKE 1 HOUR PRIOR TO SEXUAL ACTIVITY ORAL ACTIVE 09/04/2025 [id number] 4 YESICA KANG 2023 18 [facility] SILDENAFIL CITRATE 100MG TAB TAKE ONE TABLET BY MOUTH NEEDED TAKE 1 HOUR PRIOR TO SEXUAL ACTIVITY ORAL DISCONT INUED 08/21/2024 [id number] 4 YESICA KANG 2022 6 [facility] ZAFIRLUKAST 20MG TAB TAKE ONE TABLET BY MOUTH TWICE DAILY ORAL ACTIVE 04/12/2025 [id number] 5 YESICA KANG 2023 180 [facility] ZAFIRLUKAST 20MG TAB TAKE ONE TABLET BY MOUTH TWICE DAILY ORAL DISCONT INUED 05/03/2024 [id number] 4 YESICA KANG 2022 180 [facility] Immunizations Combined list of available immunizations from the Department of Defense and Veterans Affairs facilities. Immunization Series Date Given Administered By Site Reaction Lot Number CVX Code Drug Study Director Status Comments Source INFLUENZA, UNSPECIFIED FORMULATION 2023 88 complet ed per statement from vet [facility] TDAP 2023 DAIANA BECK NAMITA LEFT DELTO ID [id number] 115 complet ed [facility] INFLUENZA, UNSPECIFIED FORMULATION 2022 88 complet ed [facility] ZOSTER RECOMBINANT 1 2021 187 complet ed [facility] COVID-19 (MODERNA), MRNA, LNP-S, PF, 100 MCG/0.5 ML DOSE 2 2020 207 complet ed MOD; [id number]; 1 [place] COVID-19 (MODERNA), MRNA, LNP-S, PF, 100 MCG/0.5 ML DOSE 1 2020 207 complet ed MOD; [id number]; 1 [place] INFLUENZA, UNSPECIFIED FORMULATION 2019 [...] PNEUMOCOCCAL, UNSPECIFIED FORMULATION 2001 109 complet ed [facility] Results Combined list of recent chemistry, hematology [...] Oct 20, 2024 01:26 PM Reporting Lab: [facility] [address] [facility] [facility] [address] Performing Lab: [facility] [address] [facility] [facility] [address] [facility]TRN [facility]USE [facility] BASIC METABOLIC PANEL (non-fast ing) GLUCOSE [MASS/VOLUM E] IN SERUM OR PLASMA 105 mg/dL 65 - 100 10/31 H Specimen Type: SERUM No comment entered. Ordering Provider: SAMIR KANG Report Released Date/Time: Oct 20, 2024 01:26 PM Reporting Lab: [facility]ITALTRN [facility] [address] [facility] [facility] [address] Performing Lab: [facility]PITALTRN [facility]ENTERUSE[address] [address] [facility] BASIC METABOLIC PANEL (non-fast ing) SODIUM [MOLES/VOLU ME] IN SERUM OR PLASMA 139 mmol/L 135 - 145 10/31 Specimen Type: SERUM No comment entered. Ordering Provider: SAMIR KANG Report Released Date/Time: Oct 20, 2024 01:26 PM Reporting Lab: [facility]ITALTRN [facility] [address] [facility] [facility] [address] Performing Lab: [facility] TRN [facility]ENTERUSE[address] [address] [facility]IONRST[facility]N [facility]USE [facility] BASIC METABOLIC PANEL (non-fast ing) POTASSIUM [MOLES/VOLU ME] IN SERUM OR PLASMA 4.3 mmol/L 3.5 - 5.0 10/31 Specimen Type: SERUM No comment entered. Ordering Provider: SAMIR KANG Report Released Date/Time: Oct 20, 2024 01:26 PM Reporting Lab: [facility]ENTER[facility]ETS [facility] [address] [facility] [facility] [address] Performing Lab: [facility]ENTERUSE[address] [address] [facility]ITALTRN [facility]USE [facility] BASIC METABOLIC PANEL (non-fast ing) CHLORIDE [MOLES/VOLU ME] IN SERUM OR PLASMA 104 mmol/L 100 - 110 10/31 Specimen Type: SERUM No comment entered. Ordering Provider: SAMIR KANG Report Released Date/Time: Oct 20, 2024 01:26 PM Reporting Lab: [address] [address] Performing Lab: [address] [address] [facility] BASIC METABOLIC PANEL (non-fast ing) CARBON DIOXIDE, TOTAL [MOLES/VOLU ME] IN SERUM OR PLASMA 26 meq/L 20 - 30 10/31 Specimen Type: SERUM No comment entered. Ordering Provider: SAMIR KANG Report Released Date/Time: Oct 20, 2024 01:26 PM Reporting Lab: [address] [address] Performing Lab: [address] [address] [facility] BASIC METABOLIC PANEL (non-fast ing) CREATININE [MASS/VOLUM E] IN SERUM OR PLASMA 1.11 mg/dL 0.50 - 1.40 10/31 Specimen Type: SERUM No comment entered. Ordering Provider: SAMIR KANG Report Released Date/Time: Oct 20, 2024 01:26 PM Reporting Lab: [address] [address] Performing Lab: [address] [address] [facility] BASIC METABOLIC PANEL (non-fast ing) GLOMERULAR FILTRATION RATE/1.73 SQ M.PREDICTED [VOLUME RATE/AREA] IN SERUM, PLASMA OR BLOOD BY CREATININE- BASED FORMULA (CKD-EPI 2020) 68 mL/min 60 10/31 Specimen Type: SERUM No comment entered. Ordering Provider: SAMIR KANG Report Released Date/Time: Oct 20, 2024 01:26 PM Reporting Lab[facility] [address] [facility] [facility] [address] Performing Lab: [facility] [place] [facility] [address] [facility] [facility] [address] [facility] LIPID PANEL, NON FASTING CHOLESTEROL [MASS/VOLUM E] IN SERUM OR PLASMA 153 mg/dL 10/31 Specimen Type: SERUM No comment entered. Ordering Provider: SAMIR KANG Report Released Date/Time: Oct 20, 2024 01:26 PM Reporting Lab: [facility] [place] [facility] [address] [facility] [facility] [address] Performing Lab: [facility]RBRY[facility]OSPITALTRN [facility]ENTERUSE[facility] [address] [facility] [address] [facility]USE [facility] LIPID PANEL, NON FASTING TRIGLYCERID E [MASS/VOLUM E] IN SERUM OR PLASMA 138 mg/dL 0 - 150 10/31 Specimen Type: SERUM No comment entered. Ordering Provider: SAMIR KANG Report Released Date/Time: Oct 20, 2024 01:26 PM Reporting Lab: [facility]ENTERUSETS [facility] [address] [facility] [facility] [address] Performing Lab: [facility] [address] [facility] [address] [facility] REGIONRST. [facility]INCENT'[facility] BLOUNTN [facility]ENTERUSE [facility] LIPID PANEL, NON FASTING CHOLESTEROL IN LDL [MASS/VOLUM E] IN SERUM OR PLASMA BY CALCULATION 87 mg/dL 0 - 129 10/31 Specimen Type: SERUM No comment entered. Ordering Provider: SAMIR KANG Report Released Date/Time: Oct 20, 2024 01:26 PM Reporting Lab: [facility]ENTER[facility]ETS [facility] [address] [facility] [address] Performing Lab: [facility]ENTERUSETS [facility] [address] [facility] [address] [facility]IONRST. VINCENT'[facility] BLOUNTN [facility]ENTERUSE [facility] LIPID PANEL, NON FASTING CHOLESTEROL .TOTAL/CHOL ESTEROL IN HDL [MASS RATIO] IN SERUM OR PLASMA 4.0 10/31 Specimen Type: SERUM No comment entered. Ordering Provider: SAMIR KANG Report Released Date/Time: Oct 20, 2024 01:26 PM Reporting Lab: [facility] [place] [facility] [address] [facility] [facility] [address] Performing Lab: [facility] [address] [facility] [facility] [address] [facility] [facility] LIPID PANEL, NON FASTING CHOLESTEROL IN HDL [MASS/VOLUM E] IN SERUM OR PLASMA 38 mg/dL 40 - 60 10/31 L Specimen Type: SERUM No comment entered. Ordering Provider: SAMIR KANG Report Released Date/Time: Oct 20, 2024 01:26 PM Reporting Lab: [facility] [place] [facility] [address] [facility] [facility] [address] Performing Lab: [facility] [place] [facility] [address] [facility] [address] [facility] [place] [facility] LIVER FUNCTION PROTEIN [MASS/VOLUM E] IN SERUM OR PLASMA 6.8 g/dL 6.0 - 8.3 10/31 Specimen Type: SERUM No comment entered. Ordering Provider: SAMIR KANG Report Released Date/Time: Oct 20, 2024 01:26 PM Reporting Lab: [facility] [place] [facility] [address] [facility] [facility] [address] Performing Lab: [facility] [place] [facility] [address] [facility] [address] [facility] [place] [facility] LIVER FUNCTION ALBUMIN [MASS/VOLUM E] IN SERUM OR PLASMA 3.8 g/dL 3.5 - 5.0 10/31 Specimen Type: SERUM No comment entered. Ordering Provider: SAMIR KANG Report Released Date/Time: Oct 20, 2024 01:26 PM Reporting Lab: [facility] [place] [facility] [address] [facility] [facility] [address] Performing Lab: [facility] [place] [facility] [address] [facility] [address] [facility] [place] [facility] LIVER FUNCTION ALKALINE PHOSPHATASE [ENZYMATIC ACTIVITY/VO LUME] IN SERUM OR PLASMA 91 U/L 40 - 150 10/31 Specimen Type: SERUM No comment entered. Ordering Provider: SAMIR KANG Report Released Date/Time: Oct 20, 2024 01:26 PM Reporting Lab: [facility] [place] [facility] [address] [facility] [facility] [address] Performing Lab: [facility] [place] [address] [address] [facility] LIVER FUNCTION ASPARTATE AMINOTRANSF ERASE [ENZYMATIC ACTIVITY/VO LUME] IN SERUM OR PLASMA 20 U/L 5 - 34 10/31 Specimen Type: SERUM No comment entered. Ordering Provider: SAMIR KANG Report Released Date/Time: Oct 20, 2024 01:26 PM Reporting Lab: [facility] [place] [address] [address] Performing Lab: [facility] [place] [address] [address] [facility] LIVER FUNCTION ALANINE AMINOTRANSF ERASE [ENZYMATIC ACTIVITY/VO LUME] IN SERUM OR PLASMA 19 U/L 10/31 Specimen Type: SERUM No comment entered. Ordering Provider: SAMIR KANG Report Released Date/Time: Oct 20, 2024 01:26 PM Reporting Lab: [facility] [place] [address] [address] Performing Lab: [facility] [place] [address] [address] [facility] [facility] LIVER FUNCTION BILIRUBIN.T OTAL [MASS/VOLUM E] IN SERUM OR PLASMA 0.5 mg/dL 0.2 - 1.2 10/31 Specimen Type: SERUM No comment entered. Ordering Provider: SAMIR KANG Report Released Date/Time: Oct 20, 2024 01:26 PM Reporting Lab: [facility] [place] [address] [address] Performing Lab: [facility] [place] [address] [address] [facility] FERRITIN FERRITIN [MASS/VOLUM E] IN SERUM OR PLASMA 4 ng/mL 20 - 300 10/31 L Specimen Type: SERUM No comment entered. Ordering Provider: SAMIR KANG Report Released Date/Time: Oct 20, 2024 01:26 PM Reporting Lab: [facility] [place] [address] [address] Performing Lab: [facility] [place] [facility] [address] [facility] [address] [facility] VITAMIN B12 COBALAMIN (VITAMIN B12) [MASS/VOLUM E] IN SERUM OR PLASMA 623 pg/mL 200 - 900 10/31 Specimen Type: SERUM No comment entered. Ordering Provider: SAMIR KANG Report Released Date/Time: Oct 20, 2024 01:26 PM Reporting Lab: [facility] [place] [address] [address] Performing Lab: [facility] [place] [address] [address] [facility] [place] [facility] IRON & TIBC PANEL IRON BINDING CAPACITY [MASS/VOLUM E] IN SERUM OR PLASMA 428 ug/dL 204 - 475 10/31 Specimen Type: SERUM No comment entered. Ordering Provider: SAMIR KANG Report Released Date/Time: Oct 20, 2024 01:26 PM Reporting Lab: [facility] [place] [address] [address] Performing Lab: [place] [facility] [place] [address] [address] [facility] [place] [facility] IRON & TIBC PANEL IRON [MASS/VOLUM E] IN SERUM OR PLASMA 40 ug/dL 40 - 160 10/31 Specimen Type: SERUM No comment entered. Ordering Provider: SAMIR KANG Report Released Date/Time: Oct 20, 2024 01:26 PM Reporting Lab: [facility] [place] [address] [address] Performing Lab: [facility] [place] [facility] [address] [facility] [address] [facility]USE [facility] IRON & TIBC PANEL IRON/IRON BINDING CAPACITY.TO JARED [MASS RATIO] IN SERUM OR PLASMA 9.4 20.0 - 50.0 10/31 L Specimen Type: SERUM No comment entered. Ordering Provider: SAMIR KANG Report Released Date/Time: Oct 20, 2024 01:26 PM Reporting Lab: [facility]ITALTR[facility] [place] [facility] [address] [facility] [address] Performing Lab: [facility] REGIONRST. [facility]INCENT'[facility] BLOUNTN [facility]USE[facility] [address] [address] [facility] IRON & TIBC PANEL TRANSFERRIN [MASS/VOLUM E] IN SERUM OR PLASMA 324 mg/dL 200 - 360 10/31 Specimen Type: SERUM No comment entered. Ordering Provider: SAMIR KANG Report Released Date/Time: Oct 20, 2024 01:26 PM Reporting Lab: [facility]RST[facility] BLOUNTN [facility]ENTERUSETS [facility] [address] [facility] [address] Performing Lab: [facility]ERN [facility]ENTERUSE[address] [address] [facility]ENTERUSE [facility] CBC LEUKOCYTES [#/VOLUME] IN BLOOD BY AUTOMATED COUNT 9.45 10*3/u L 4.50 - 11.00 10/31 Specimen Type: BLOOD No comment entered. Ordering Provider: SAMIR KANG Report Released Date/Time: Oct 20, 2024 01:26 PM Reporting Lab: [facility]ITALTRN [place] [facility] [address] [facility] [address] Performing Lab: [facility]ENTERUSETS [facility] [address] [facility] [address] [facility]ENTERUSE [facility] CBC ERYTHROCYTE S [#/VOLUME] IN BLOOD BY AUTOMATED COUNT 3.91 10*6/u L 4.23 - 5.66 10/31 L Specimen Type: BLOOD No comment entered. Ordering Provider: SAMIR KANG Report Released Date/Time: Oct 20, 2024 01:26 PM Reporting Lab: [facility] [place] [facility] [address] [facility] [address] Performing Lab: [facility] [place] [facility] [address] [facility] [address] [facility] [place] [facility] CBC HEMOGLOBIN [MASS/VOLUM E] IN BLOOD 10.9 g/dL 12.8 - 17 10/31 L Specimen Type: BLOOD No comment entered. Ordering Provider: SAMIR KANG Report Released Date/Time: Oct 20, 2024 01:26 PM Reporting Lab: [facility] [place] [facility] [address] [facility] [facility] [address] Performing Lab: [facility] [place] [facility] [address] [facility] [address] [facility] [place] [facility] CBC HEMATOCRIT [VOLUME FRACTION] OF BLOOD BY AUTOMATED COUNT 34.3 39.2 - 50.4 10/31 L Specimen Type: BLOOD No comment entered. Ordering Provider: SAMIR KANG Report Released Date/Time: Oct 20, 2024 01:26 PM Reporting Lab: [facility] [place] [facility] [address] [facility] [address] Performing Lab: [facility] [place] [facility] [address] [facility] [address] [facility] [place] [facility] CBC MCV [ENTITIC VOLUME] BY AUTOMATED COUNT 87.7 fL 82 - 99 10/31 Specimen Type: BLOOD No comment entered. Ordering Provider: SAMIR KANG Report Released Date/Time: Oct 20, 2024 01:26 PM Reporting Lab: [facility] [place] [facility] [address] [facility] [address] Performing Lab: [facility] [address] [address] [facility] CBC MCHC [MASS/VOLUM E] BY AUTOMATED COUNT 31.8 g/dL 30.8 - 35.1 10/31 Specimen Type: BLOOD No comment entered. Ordering Provider: SAMIR KANG Report Released Date/Time: Oct 20, 2024 01:26 PM Reporting Lab: [facility] [address] [facility] [address] Performing Lab: [facility] [address] [facility] [address] [facility] CBC PLATELETS [#/VOLUME] IN BLOOD BY AUTOMATED COUNT 262 10*3/u L 140 - 360 10/31 Specimen Type: BLOOD No comment entered. Ordering Provider: SAMIR KANG Report Released Date/Time: Oct 20, 2024 01:26 PM Reporting Lab: [facility] [address] [facility] [address] Performing Lab: [facility] [address] [facility] [address] [facility] CBC ERYTHROCYTE DISTRIBUTIO N WIDTH [RATIO] BY AUTOMATED COUNT 15.0 12.0 - 16.0 10/31 Specimen Type: BLOOD No comment entered. Ordering Provider: SAMIR KANG Report Released Date/Time: Oct 20, 2024 01:26 PM Reporting Lab: [facility] [address] [facility] [address] Performing Lab: [facility] [place] [facility] [address] [facility] [address] [facility] CBC MCH [ENTITIC MASS] BY AUTOMATED COUNT 27.9 pg 26.2 - 32.6 10/31 Specimen Type: BLOOD No comment entered. Ordering Provider: SAMIR KANG Report Released Date/Time: Oct 20, 2024 01:26 PM Reporting Lab: [facility] [address] [facility] [address] Performing Lab: [facility] [address] [place] [address] [facility] CBC AND DIFF (AUTO) LEUKOCYTES [#/VOLUME] IN BLOOD BY AUTOMATED COUNT 7.90 10*3/u L 4.50 - 11.00 05/05 Specimen Type: BLOOD No comment entered. Ordering Provider: SAMIR KANG Report Released Date/Time: May 05, 2024 10:21 AM Reporting Lab: [facility] [place] [facility] [address] [facility] [address] Performing Lab: [facility] [place] [facility] [address] [facility] [address] [facility] [place] CBC AND DIFF (AUTO) ERYTHROCYTE S [#/VOLUME] IN BLOOD BY AUTOMATED COUNT 4.05 10*6/u L 4.23 - 5.66 05/05 L Specimen Type: BLOOD No comment entered. Ordering Provider: SAMIR KANG Report Released Date/Time: May 05, 2024 10:21 AM Reporting Lab: [facility] [place] [address] [address] Performing Lab: [facility] [place] [facility] [address] [facility] [address] [facility] [place] CBC AND DIFF (AUTO) HEMOGLOBIN [MASS/VOLUM E] IN BLOOD 12.0 g/dL 12.8 - 17 05/05 L Specimen Type: BLOOD No comment entered. Ordering Provider: SAMIR KANG Report Released Date/Time: May 05, 2024 10:21 AM Reporting Lab: [facility] [place] [address] [address] Performing Lab: [facility] [place] [facility] [address] [facility] [address] [facility] [place] [facility] CBC AND DIFF (AUTO) HEMATOCRIT [VOLUME FRACTION] OF BLOOD BY AUTOMATED COUNT 37.1 39.2 - 50.4 05/05 L Specimen Type: BLOOD No comment entered. Ordering Provider: SAMIR KANG Report Released Date/Time: May 05, 2024 10:21 AM Reporting Lab: [facility] [place] [address] [address] Performing Lab[facility] [place] [facility] [address] [facility] [address] [facility] [place] CBC AND DIFF (AUTO) MCV [ENTITIC VOLUME] BY AUTOMATED COUNT 91.6 fL 82 - 99 05/05 Specimen Type: BLOOD No comment entered. Ordering Provider: SAMIR AKNG Report Released Date/Time: May 05, 2024 10:21 AM Reporting Lab: [facility] [place] [facility] [address] [facility] [address] Performing Lab: [facility] [place] [facility] [address] [facility] [address] [facility] [place] CBC AND DIFF (AUTO) MCHC [MASS/VOLUM E] BY AUTOMATED COUNT 32.3 g/dL 30.8 - 35.1 05/05 Specimen Type: BLOOD No comment entered. Ordering Provider: SAMIR KANG Report Released Date/Time: May 05, 2024 10:21 AM Reporting Lab: [facility] [place] [facility] [address] [facility] [address] Performing Lab: [facility] [place] [facility] [address] [facility] [address] [facility] [place] CBC AND DIFF (AUTO) PLATELETS [#/VOLUME] IN BLOOD BY AUTOMATED COUNT 235 10*3/u L 140 - 360 05/05 Specimen Type: BLOOD No comment entered. Ordering Provider: SAMIR KANG Report Released Date/Time: May 05, 2024 10:21 AM Reporting Lab: [facility] [place] [facility] [address] [facility] [address] Performing Lab: [facility] [place] [facility] [address] [facility] [address] [facility] CBC AND DIFF (AUTO) ERYTHROCYTE DISTRIBUTIO N WIDTH [RATIO] BY AUTOMATED COUNT 13.9 12.0 - 16.0 05/05 Specimen Type: BLOOD No comment entered. Ordering Provider: SAMIR KANG Report Released Date/Time: May 05, 2024 10:21 AM Reporting Lab: [facility] [address] [facility] [address] Performing Lab: [facility] [address] [facility] [address] [facility] CBC AND DIFF (AUTO) MONOCYTES [#/VOLUME] IN BLOOD BY AUTOMATED COUNT 0.61 10*3/u L 0.30 - 1.10 05/05 Specimen Type: BLOOD No comment entered. Ordering Provider: SAMIR KANG Report Released Date/Time: May 05, 2024 10:21 AM Reporting Lab: [facility] [address] [facility] [address] Performing Lab: [facility] [address] [facility] [address] [facility] CBC AND DIFF (AUTO) MCH [ENTITIC MASS] BY AUTOMATED COUNT 29.6 pg 26.2 - 32.6 05/05 Specimen Type: BLOOD No comment entered. Ordering Provider: SAMIR KANG Report Released Date/Time: May 05, 2024 10:21 AM Reporting Lab: [facility] [address] [facility] [address] Performing Lab: [facility] [address] [facility] [address] [facility] CBC AND DIFF (AUTO) NEUTROPHILS /100 LEUKOCYTES IN BLOOD BY AUTOMATED COUNT 72.8 43.7 - 75.8 05/05 Specimen Type: BLOOD No comment entered. Ordering Provider: SAMIR KANG Report Released Date/Time: May 05, 2024 10:21 AM Reporting Lab: [facility] [address] [facility] [address] Performing Lab: [facility] [address] [facility] [address] [facility] CBC AND DIFF (AUTO) LYMPHOCYTES /100 LEUKOCYTES IN BLOOD BY AUTOMATED COUNT 14.3 14.0 - 42.3 05/05 Specimen Type: BLOOD No comment entered. Ordering Provider: SAMIR KANG Report Released Date/Time: May 05, 2024 10:21 AM Reporting Lab: [facility] [address] [facility] [address] Performing Lab: [facility] [address] [facility] [address] [facility] CBC AND DIFF (AUTO) MONOCYTES/1 00 LEUKOCYTES IN BLOOD BY AUTOMATED COUNT 7.7 5.1 - 13.7 05/05 Specimen Type: BLOOD No comment entered. Ordering Provider: SAMIR KANG Report Released Date/Time: May 05, 2024 10:21 AM Reporting Lab: [facility] [address] [facility] [address] Performing Lab: [facility] [address] [facility] [address] [facility] CBC AND DIFF (AUTO) EOSINOPHILS /100 LEUKOCYTES IN BLOOD BY AUTOMATED COUNT 4.1 0.4 - 6.8 05/05 Specimen Type: BLOOD No comment entered. Ordering Provider: SAMIR KANG Report Released Date/Time: May 05, 2024 10:21 AM Reporting Lab: [facility] [address] [facility] [address] Performing Lab: [facility] [address] [facility] [address] [facility] CBC AND DIFF (AUTO) BASOPHILS/1 00 LEUKOCYTES IN BLOOD BY AUTOMATED COUNT 0.5 0.1 - 2.0 05/05 Specimen Type: BLOOD No comment entered. Ordering Provider: SAMIR KNAG Report Released Date/Time: May 05, 2024 10:21 AM Reporting Lab: [facility] [address] [facility] [address] Performing Lab: [facility] [address] [facility] [address] [facility] CBC AND DIFF (AUTO) NEUTROPHILS [#/VOLUME] IN BLOOD BY AUTOMATED COUNT 5.75 10*3/u L 2.20 - 7.60 05/05 Specimen Type: BLOOD No comment entered. Ordering Provider: SAMIR KANG Report Released Date/Time: May 05, 2024 10:21 AM Reporting Lab: [facility] [place] [address] [address] Performing Lab: [facility] [address] [facility] [address] [facility] CBC AND DIFF (AUTO) LYMPHOCYTES [#/VOLUME] IN BLOOD BY AUTOMATED COUNT 1.13 10*3/u L 1.00 - 3.20 05/05 Specimen Type: BLOOD No comment entered. Ordering Provider: SAMIR KANG Report Released Date/Time: May 05, 2024 10:21 AM Reporting Lab: [facility] [place] [address] Performing Lab: [facility] [place] [address] [address] [facility] CBC AND DIFF (AUTO) EOSINOPHILS [#/VOLUME] IN BLOOD BY AUTOMATED COUNT 0.32 10*3/u L 0.03 - 0.44 05/05 Specimen Type: BLOOD No comment entered. Ordering Provider: SAMIR KANG Report Released Date/Time: May 05, 2024 10:21 AM Reporting Lab: [facility] [address] [place] [address] Performing Lab: [facility] [address] [place] [address] [facility] CBC AND DIFF (AUTO) BASOPHILS [#/VOLUME] IN BLOOD BY AUTOMATED COUNT 0.04 10*3/u L 0.01 - 0.13 05/05 Specimen Type: BLOOD No comment entered. Ordering Provider: SAMIR KANG Report Released Date/Time: May 05, 2024 10:21 AM Reporting Lab: [facility] [place] [facility] [address] [facility] [address] Performing Lab: [facility] [place] [facility] [address] [facility] [address] [facility] [place] [facility] CBC AND DIFF (AUTO) IMMATURE GRANULOCYTE S/100 LEUKOCYTES IN BLOOD BY AUTOMATED COUNT 0.6 0.0 - 0.7 05/05 Specimen Type: BLOOD No comment entered. Ordering Provider: SAMIR KANG Report Released Date/Time: May 05, 2024 10:21 AM Reporting Lab: [facility] [place] [facility] [address] [facility] [address] Per[facility] Lab: [facility] [address] [facility] [address] [facility] CBC AND DIFF (AUTO) IMMATURE GRANULOCYTE S [#/VOLUME] IN BLOOD 0.05 10*3/u L 0.00 - 0.06 05/05 Specimen Type: BLOOD No comment entered. Ordering Provider: SAMIR KANG Report Released Date/Time: May 05, 2024 10:21 AM Reporting Lab: [facility] [place] [address] [address] Performing Lab: [facility] [address] [facility] [address] [facility] CBC AND DIFF (AUTO) NRBC % 0.0 0.0 - 0.0 05/05 Specimen Type: BLOOD No comment entered. Ordering Provider: SAMIR KANG Report Released Date/Time: May 05, 2024 10:21 AM Reporting Lab: [facility] [place] [facility] [address] [facility] [address] Performing Lab: [facility] [place] [facility] [address] [facility] [address] [facility] CBC AND DIFF (AUTO) NRBC, ABS 0.00 10*3/u L 0.00 - 0.00 05/05 Specimen Type: BLOOD No comment entered. Ordering Provider: SAMIR KANG Report Released Date/Time: May 05, 2024 10:21 AM Reporting Lab: [facility] [place] [address] [facility] [address] Performing Lab: [facility] [place] [address] [facility] [address] [facility] VITAMIN B12 COBALAMIN (VITAMIN B12) [MASS/VOLUM E] IN SERUM OR PLASMA 885 pg/mL 200 - 900 05/05 Specimen Type: SERUM No comment entered. Ordering Provider: SAMIR KANG Report Released Date/Time: May 05, 2024 10:21 AM Reporting Lab: [facility] [address] [facility] [address] Performing Lab: [facility] [place] [address] [facility] [address] [facility] FERRITIN FERRITIN [MASS/VOLUM E] IN SERUM OR PLASMA 57 ng/mL 20 - 300 05/05 Specimen Type: SERUM No comment entered. Ordering Provider: SAMIR KANG Report Released Date/Time: May 05, 2024 10:21 AM Reporting Lab: [facility] [address] [facility] [address] Performing Lab: [facility] [place] [address] [facility] [address] [facility] [place] [facility] Vital Signs Combined list of inpatient and outpatient Vital Signs from Department of Defense and Veterans Affairs, ranging from 12 months to all on record, depending upon the facility. Vital Sign Value Date Comments Source SYSTOLIC BLOOD PRESSURE 126 11/05/19 25 10:44:14 [facility] DIASTOLIC BLOOD PRESSURE 72 025 10:44:14 [facility] PULSE OXIMETRY 99 11/05/2024 10:44:14 [facility] WEIGHT 210 11/05/2024 10:44:14 [facility] BMI 31 kg/m2 11/05/2024 10:44:14 [facility] PAIN 6 11/05/2024 10:44:14 [facility] HEIGHT 69 11/05/2024 10:44:14 [facility] TEMPERATURE 98.1 11/05/2024 10:44:14 [facility] PULSE 98 11/05/2024 10:44:14 [facility] RESPIRATION 20 11/05/2024 10:44:14 [facility] SYSTOLIC BLOOD PRESSURE 149 05/05/20 24 10:03:48 [facility] DIASTOLIC BLOOD PRESSURE 83 024 10:03:48 [facility] PULSE OXIMETRY 96 05/05/2024 10:03:48 [facility] WEIGHT 213 05/05/2024 10:03:48 [facility] BMI 32 kg/m2 05/05/2024 10:03:48 [facility] [...] from Department of Veterans Affairs facilities going backup to the last 18 months, not all VA inpatient encounters are included; 2) Encounters from the Department of Defense facilities going backup to 280 months. Location Location Details Encounter Type Encounter Number Reason For Visit Attending Provider ADM Date DC Date Status Disposition Source [facility] Encounter [id number] 07/06 [facility]counter [id number] 07/17 [facility]counter [id number] 07/27 [facility] Out[facility] Encounter [id number] 07/29 [facility]counter [id number] 08/03 [facility] Encounter [id number] 08/21 [facility] OFFICE O/P EST MOD 30 MIN [id number] Diagnos is: ICD-10- CM G47.33 Obstruc tive sleep apnea (adult) (pediat romana) Hortencia KANG 11/08 [facility] En[facility] [id number] 01/30 [facility]counter [id number] 01/30 [facility] Encounter [id number] 03/13 [facility] Encounter [id number] 04/10 [facility] COMPRE OPH EXAM EST PT 1/ [id number] Diagnos is: ICD-10- CM H25.813 Combine d forms of age-rel ated catarac t, bilater al ERWIN BARROS E 04/11 [facility] FIT SPECTACLES BIFOCAL [id number] Diagnos is: ICD-10- CM Z46.0 Encount er for fit/adj st of spectac les and contact lenses ERWIN BARROS E 04/11 [facility] OFFICE O/P EST MOD 30 MIN [id number] Diagnos is: ICD-10- CM M16.9 Osteoar thritis of hip, unspeci fiHortencia Guido 05/05 [facility] Out[facility] Encounter [id number] 05/13 [facility] INTRAORAL PERIAPICAL EA ADD [id number] Diagnos is: ICD-10- CM K05.30 Chronic periodo ntitis, unspeci fiMELY Vidal 05/14 [facility] Out[facility] Encounter [id number] 05/19 [facility] Out[facility] Encounter [id number] 07/03 [facility] [place] CASE MGMT-ORAL HE[facility] LIT [id number] Diagnos is: ICD-10- CM K03.6 Deposit s [accret ions] on teeth Hola HALEYHDSagar 07/04 [facility] Outpatient Encounter [id number] 07/21 [facility] [place] Outpatient Encounter [id number] 08/07 [facility] [place] Outpatient Encounter [id number] [id number] [facility] [place] OFFICE O/P EST HI 40 MIN [id number] Diagnos is: ICD-10- CM R25.1 Tremor, unspeci Hortencia Edward 11/05 [facility] [place] [facility] [place] Outpatient Encounter [id number] 11/06 [facility] [place] [place] [facility] Social History Combined list of available smoking, tobacco, and other social history from Department of Defense and Veterans Affairs facilities. Social History Type Response Date Comment [facility] e Tobacco smoking status IDIS VA-TOBACCO FORMER USER 05/05/2024 [facility] History of tobacco use VA-TOBACCO QUIT 15 YRS OR MORE 05/05/2024 [facility] History of tobacco use VA-TOBACCO FORMER USER 05/03/2023 [facility] History of tobacco use VA-TOBACCO QUIT 15 YRS OR MORE 05/10/2022 [facility] History of tobacco use VA-TOBACCO FORMER USER 04/13/2021 [facility] History of tobacco use VA-TOBACCO QUIT 15 YRS OR MORE 02/04/2020 [facility] [place] [facility] History of tobacco use [place]-TOBACCO NEVER USED 03/11/2019 [facility] [place] [facility] History of tobacco use QUIT TOBACCO USE > 7 YEARS AGO 04/01/2018 [facility] History of tobacco use QUIT TOBACCO USE > 7 YEARS AGO 04/27/2017 [facility] [place] [facility] History of tobacco use LIFETIME NON-TOBACCO USER 05[facility]03/2016 [facility] [place] [facility] History of tobacco use HISTORY OF SMOKING 12/29/2004 [facility] [place] [facility] History of tobacco use HISTORY OF SMOKING 12/28/2003 [facility] [place] [facility] History of tobacco use HISTORY OF SMOKING 12/08/2002 [facility] [place] [facility] History of tobacco use QUIT TOBACCO USE > 7 YEARS AGO 06/09/2002 [facility] [place] [facility] History of tobacco use NON-TOBACCO USER 12/09/2001 [facility] [place] [facility] Plan of Care List of future care activities from Department of Veterans Affairs facilities. Additional future care activities may be listed in the Assessment and Plan section. Date/Time Care Activity Care Activity Detail Facili ty 01/02/2025 AMBULATORY - NONE AMBULATORY - NONE [facility] [place] [facility] 01/08/2025 AMBULATORY - MEDICINE AMBULATORY - MEDICI NE [facility] [place] [facility] 04/13/2025 AMBULATORY - MEDICINE [facility] [place] [facility] 05/06/2025 AMBULATORY - MEDICINE AMBULATORY [facility] [place] [facility] 11/10/2024 Consult Order [facility]ITY [facility]-D ENTAL SPECIALTY Cons Fire Prevention Officer's Choice [facility] [place] [facility]
--- OUTSIDE RECORDS SUMMARY | 2024-12-21 11:26 | XMS_ITS | Encounter Summary ---
Author Organization [facility] Address [address] [place] [id number] Care Team Providers Care Co Director Name Role Phone Aristeo Adan MD Primary Care Provider [phone] Reason for Visit * Reason Onset Date Comments Referral 12/18/2024 Encounter Details Date Type Department Care Team (Late Contact Info) Description 12/18/2024 Telephone Gastroenterology - [place] [address] [place] [phone] Gabby Soto MA Referral Social History Tobacco Use Types Packs/Day Years Used Date Smoking Tobacco: Never Assessed Sex and Gender Information Value Date Recorded Sex Assigned at Not on file Legal Sex Male 9:45 AM EST Gender Identity Not on file Sexual Orientation Not on file documented as of this encounter Progress Notes * Gabby Soto MA - 12/18/2024 10:02 AM EST Records received from Dr. Nam office to schedule patient for an appointment for NAJMA. Patient also due for colonoscopy, last done in [address] Saunders- booked appointment with Teetee due to NAJMA and age. Notes scanned under media. documented in this encounter Plan of Treatment Upcoming Encounters Date Type Department Care Team (Late st Contact Info) Description 01/16/2025 2:20 PM EDT Consult Gastroenterology - [address] [place] [phone] Teetee Pearson, GALLO [address] [place] [address] documented as of this encounter Visit Diagnoses Not on filedocumented in this encounter Care Teams Co Director Relationship Specialty Start Date End Date Aristeo Adan MD [address] [place] [address] PCP - General Internal Medicine 12/18/24 documented as of this encounter
--- OUTSIDE RECORDS SUMMARY | 2024-12-21 11:26 | XMS_ITS | Clinical Summary ---
Author Organization 175 [facility] Address [address] [place] [address] Phone Care Team Providers Care Painter Shipyard Name Role Phone Aristeo Adan MD Primary Care Provider Encounters Date Type Department Care Team Description 12/18/2024 Telephone Gastroenterology - [place] 175 [facility] 175 [facility] [address] [place] [address] Gabby Soto [place] Referral from Last 3 Months Social History Tobacco Use Types Packs/Day Years Used Date Smoking Tobacco: Never Assessed Sex and Gender Information Value Date Recorded Sex Assigned at Not on file Legal Sex Male 9:45 AM EST Gender Identity Not on file Sexual Orientation Not on file Plan of Treatment Upcoming Encounters Date Type Department Care Team (Late st Contact Info) Description 01/16/2025 2:20 PM EDT Consult Gastroenterology - 299 [facility] 299 [facility] [address] [place] [phone] Teetee Pearson, MONUMENT STONECUTTER 299 [facility] [address] [place] [address] Health Maintenance Due Date Last Done Comments DTaP,Tdap,and Td Vaccines (1 - Tdap) 1966 Pneumococcal Vaccine: 50+ Ye ars (1 of 1 - PCV) 1997 Zoster Vaccines (1 of 2) 1997 RSV Immunization Patients 60 + Years Old (1 - 1-dose 75+ series) 2022 COVID-19 Vaccine (1 - 2023-2 5 season) 2024 Influenza Vaccine (#1) 2024 Cholesterol Screening (Lipid Panel) 12/18/2024 Depression Screening 12/18/2024 Falls Risk Assessment 12/18/2024 Hepatitis C Screening 12/18/2024 Medicare Annual Wellness Visit 12/18/2024 Social Influencers of Health Screening 12/18/2024 HIB Vaccines Aged Out No longer eligi ble based on patient's age to complete this topic HPV Vaccines Aged Out No longer eligi ble based on patient's age to complete this topic Hepatitis A Vaccines Aged Out No long er eligible based on patient's age to complete this topic Hepatitis B Vaccines Aged Out No long er eligible based on patient's age to complete this topic IPV Vaccines Aged Out No longer eligi ble based on patient's age to complete this topic MMR Vaccines Aged Out No longer eligi ble based on patient's age to complete this topic Meningococcal ACWY Vaccine Aged Out N o longer eligible based on patient's age to complete this topic Meningococcal B Vacine Aged Out No lo nger eligible based on patient's age to complete this topic RSV Immunization Patients Un mariluz 20 months Aged Out No longer eligible b ased on patient's age to complete this topic Varicella Vaccines Aged Out No longer eligible based on patient's age to complete this topic Insurance MEDICARE Care Teams Painter Shipyard Relationship Specialty Start Date End Date Aristeo Adan MD [address] [place] [address] PCP - General Internal Medicine 12/18/24
== END 2024-12-21 11:24 | disposition home or self-care (01) ==
LOC: HO.MRI 11:23
PROVIDERS: PCP Nurse Practitioner Family; Visit Provider Psychiatry & Neurology Neurology
DX: G25.2 Other specified forms of tremor (principal); R26.9 Unspecified abnormalities of gait and mobility
CPT/HCPCS: 70551

== ENCOUNTER 2025-03-04 10:48 | Outpatient (AMB) | payer OTHER, SELFPAY ==
[2025-03-04 10:56] VITALS: BP 116/62; PULSE 103; O2SAT 98; BMI 29.6
--- NOTE | 2025-03-04 10:56 | MHC.OFFVIS ---
Vital Signs 03/04/25 10:56 Height 5 ft 10 in Weight 206 lb 6 oz BMI 29.6 BP 116/62 Blood Pressure Location Rt brachial Position Sitting Pulse 103 H Pulse Source Pulse Oximeter Pulse Oximetry (%) 98 Oxygen Delivery Method Room Air Intake Visit Reasons: Follow up 4mo Intake Note: Patient presents for follow up MRI done 12/22/24; Patient did not do PT would like to further discuss at visit Allergies No Known Allergies Allergy (Verified 03/04/25 10:59) HPI Comments Details: 79y/o Right handed male comes for follow up of tremors, parkinsonism. He was trialed on carbidopa/levodopa bid which is helping. History form last visit- He started noticing tremors in both hands R>L about 5 years ago. He had a fall last summer and felt like his left foot was stuck and did not move. He feels his balance is worse and uses his cane more. The tremors are mostly at posture and action. He also has some leg tremors He has some trouble with handwriting, eating, drinking coffee, dressing etc. No change in voice. No memory issues. SLeep- has sleep apnea- uses CPAP- his does not like him using CPAP. Mood is stable He has urinary frequency and urgency.No family h/o tremors PFSH Medical History Coarse tremors Gait abnormality Tremor Ulcerative colitis Osteoarthritis FRANCESCA (obstructive sleep apnea) Mental disorder B-complex deficiency Fatty liver HTN (hypertension) BPH (benign prostatic hyperplasia) Surgical History (Updated 03/04/25 @ 11:01 by LIBERTAD Murillo) H/O endoscopy Hx of cholecystectomy Social History Alcohol intake: never Patient Tobacco Use Status: Never used Tobacco Physical Exam Vital Signs: Last Vital Signs Pulse 103 H 03/04/25 10:56 BP 116/62 03/04/25 10:56 Pulse Ox 98 03/04/25 10:56 Oxygen Delivery Method Room Air 03/04/25 10:56 BMI result Body Mass Index 29.6 Const General: cooperative and comfortable Nutritional Appearance: average body habitus Orientation/consciousness: patient oriented x3 Eyes Pupils: Equal, round and reactive pupils present Neuro Other: Nick UE postural and action tremors - mild R>L normal tone FFM decreased nick Foot taps mild decreased Gait- stooped , slow , small steps, symmetric arm swings General: patient oriented x3, moves all extremities and no focal motor deficits Cranial nerves: Yes Facial sensation intact/muscles of mastication intact, Yes Equal, round and reactive pupils present, Yes Bilaterally intact EOM present, Yes Nystagmus not present, Yes Normal facial strength present and Yes Midline tongue present Cognition (Neuro): normal cognition Gait exam (Neuro): Antalgic gait present Motor exam (neuro): 5/5 motor strength present throughout Coordination: [id number] test normal Assessment & Plan Assessment & Plan (1) Coarse tremors: Comment: ? parkinsonism exaggerated physiologic tremors Code(s): G25.2 - Other specified forms of tremor Category: Medical (2) Gait abnormality: Comment: Multifactorial , musculoskeletal and neurological Code(s): R26.9 - Unspecified abnormalities of gait and mobility Category: Medical Plan MRI Brain reviewed continue Carbidopa/levodopa 25/100 bid PT for gait training Coding Level of Care Code Est Pt Level 4 (80896) Diagnoses Coarse tremors G25.2 Gait abnormality R26.9
== END 2025-03-04 11:34 | disposition home or self-care (01) ==
LOC: HO.HSMS 10:48
PROVIDERS: PCP Internal Medicine Endocrinology, Diabetes & Metabolism; Visit Provider Psychiatry & Neurology Neurology
DX: G25.2 Other specified forms of tremor (principal); R26.9 Unspecified abnormalities of gait and mobility
CPT/HCPCS: 99214

== ENCOUNTER → 2025-03-04 10:48 | Outpatient (BNVA) | payer OTHER, SELFPAY | PROVIDERS: PCP Internal Medicine Endocrinology, Diabetes & Metabolism; Visit Provider Psychiatry & Neurology Neurology | DX: G25.2 Other specified forms of tremor (principal); R26.9 Unspecified abnormalities of gait and mobility | CPT/HCPCS: 99212 ==

== ENCOUNTER 2025-07-31 09:53 | Outpatient (AMB) | payer MEDICARE, SELFPAY ==
--- NOTE | 2025-07-31 09:54 | A.OFFVIS_ITS ---
Vital Signs 07/31/25 09:55 Height 5 ft 10 in Weight 208 lb 2 oz BMI 29.9 BP 132/70 Blood Pressure Location Rt brachial Position Sitting Pulse 99 Pulse Source Pulse Oximeter Pulse Oximetry (%) 98 Oxygen Delivery Method Room Air Intake Visit Reasons: follow up Intake Note: Follow up Coarse tremor ?Parkinson's and gait Full Stack Engineer Required: No Accompanied by: Self / Same As Patient Allergies No Known Allergies Allergy (Verified 07/31/25 09:55) Medication List - Last Reconciled 07/31/25 by Noreen Dalton MD albuterol sulfate 90 mcg/actuation 1 inh inhalation QID atorvastatin 40 mg PO DAILY betamethasone dipropionate 0.05% topical DAILY carbidopa-levodopa 25-100 mg (Sinemet) 1 tab PO BID ferrous sulfate (Feosol) 325 mg PO DAILY fluticasone propion-salmeterol 500-50 mcg/dose 1 inh inhalation BID ipratropium-albuterol 0.5 mg-3 mg(2.5 mg base)/3 mL 3 mL inhalation Q6H PRN lisinopril 5 mg PO DAILY mecobalamin (vitamin B12) 1,000 mcg PO DAILY omeprazole 40 mg PO DAILY sildenafil 50 mg PO DAILY PRN zafirlukast 20 mg PO BID HPI Comments Details: 79y/o Right handed male comes for follow up of tremors, parkinsonism. He was trialed on carbidopa/levodopa bid which is helping.He exercises regularly . PT helped . History form last visit- He started noticing tremors in both hands R>L about 5 years ago. He had a fall last summer and felt like his left foot was stuck and did not move. He feels his balance is worse and uses his cane more. The tremors are mostly at posture and action. He also has some leg tremors He has some trouble with handwriting, eating, drinking coffee, dressing etc. No change in voice. No memory issues. SLeep- has sleep apnea- uses CPAP- his does not like him using CPAP. Mood is stable He has urinary frequency and urgency.No family h/o tremors PFSH Medical History Coarse tremors Gait abnormality Tremor Ulcerative colitis Osteoarthritis FRANCESCA (obstructive sleep apnea) Mental disorder B-complex deficiency Fatty liver HTN (hypertension) BPH (benign prostatic hyperplasia) Surgical History H/O endoscopy Hx of cholecystectomy Social History Alcohol intake: never Patient Tobacco Use Status: Never used Tobacco Physical Exam Vital Signs: Last Vital Signs Pulse 99 07/31/25 09:55 BP 132/70 07/31/25 09:55 Pulse Ox 98 07/31/25 09:55 Oxygen Delivery Method Room Air 07/31/25 09:55 BMI result Body Mass Index 29.9 Const General: cooperative and comfortable Nutritional Appearance: average body habitus Orientation/consciousness: patient oriented x3 Eyes Pupils: Equal, round and reactive pupils present Neuro Other: Nick UE postural and action tremors - mild R>L normal tone FFM decreased nick Foot taps mild decreased Gait- stooped , slow , small steps, symmetric arm swings General: patient oriented x3, moves all extremities and no focal motor deficits Cranial nerves: Yes Facial sensation intact/muscles of mastication intact, Yes Equal, round and reactive pupils present, Yes Bilaterally intact EOM present, Yes Nystagmus not present, Yes Normal facial strength present and Yes Midline tongue present Cognition (Neuro): normal cognition Gait exam (Neuro): Antalgic gait present Motor exam (neuro): 5/5 motor strength present throughout Coordination: [id number] test normal Assessment & Plan Assessment & Plan (1) Coarse tremors: Comment: ? parkinsonism exaggerated physiologic tremors Code(s): G25.2 - Other specified forms of tremor Category: Medical (2) Gait abnormality: Comment: Multifactorial , musculoskeletal and neurological Code(s): R26.9 - Unspecified abnormalities of gait and mobility Category: Medical Plan MRI Brain reviewed continue Carbidopa/levodopa 25/100 bid Continue exercise - use cane as needed. Discussed fall prevention Medications: Refilled carbidopa-levodopa 25-100 mg (Sinemet) 1 tab PO BID 180 tabs 6RF Coding Level of Care Code Est Pt Level 4 (76000) Diagnoses Coarse tremors G25.2 Gait abnormality R26.9
[2025-07-31 09:55] VITALS: BP 132/70; PULSE 99; O2SAT 98; BMI 29.9
--- OUTSIDE RECORDS SUMMARY | 2025-07-31 10:35 | XMS_ITS | Encounter Summary ---
Author Organization [facility] Address [id number] [place] [phone] Care Team Providers Care Microfilm Machine Operator Name Role Phone Aristeo Adan MD Primary Care Provider Encounter Details Date Type Department Care Team (Late st Contact Info) Description 02/24/2025 Lab Requisition [facility] - Main Lab [address] [facility] [place] [address] Prakash Saunders MD Need updated address, phone and fax Iron deficiency anemia, unspecified Social History Tobacco Use Types Packs/Day Years Used Date Smoking Tobacco: Never Assessed Sex and Gender Information Value Date Recorded Sex Assigned at Not on file Legal Sex Male 9:45 AM EST Gender Identity Not on file Sexual Orientation Not on file documented as of this encounter Plan of Treatment Not on file documented as of this encounter Procedures Procedure Name Priority Date/Time Associated Diagnosis Comments TISSUE EXAM Routine 02/23/2025 Iron deficiency anemia, unspecified documented in this encounter Results * Tissue Exam (02/23/2025) Final Diagnosis A. Large Intestine, Sigmoid Colon, rectal sigmoid polyp biopsy: - Hyperplastic polyp. 02/25/2025 8:41 AM EDT [facility] Clinical Information Iron deficiency anemia Polyp 02/25/2025 8:41 AM [facility]) [facility] Gross Description A. Large Intestine, Sigmoid Colon, rectal polyp biopsy: Labeled rectal sigmoid polyp biopsy . Received in formalin, is an approximately 0.3 cm in greatest diameter soft to rubbery, mcneal tissue fragment, which is inked green at the base, wrapped in paper and submitted in toto in one cassette, one piece, multiple levels. dvb/hs/DG 02/25/2025 8:41 AM EDT [facility] Disclaimer Unless otherwise specified, all tissue is 10% NB formalin fixed and paraffin embedded. 02/25/2025 8:41 AM EDT [facility] Tissue Sigmoid colon structure / Unknown 02/23/2025 02/24/2025 9:01 AM EDT us Prakash Saunders MD LAB PATHOLOGY ORDERABLES Final Result [facility]) [facility] [address] [place] [address], documented in this encounter Visit Diagnoses Diagnosis Iron deficiency anemia, unspecified documented in this encounter Care Teams Microfilm Machine Operator Relationship Specialty Start Date End Date Aristeo Adan MD [address] [place] [id number] PCP - General Internal Medicine 12/18/24 documented as of this encounter
--- OUTSIDE RECORDS SUMMARY | 2025-07-31 10:35 | XMS_ITS | Clinical Summary ---
Author Organization 175 [facility] Address [address] [place] [address] Phone Care Team Providers Care Fruit Packer Face And Fill Name Role Phone Aristeo Adan MD Primary Care Provider [phone] Allergies Active Allergy Reactions Criticality Noted Date Comments Codeine 01/16/2025 Medications Hospital, Clinic, or Other Facility Administered Medication Ordered Dose Route Frequency Start Date End Date Status sod picosulf-mag ox-citric ac 10 mg-3.5 gram- 12 gram/175 mL solution 2 BottleIndications:Po lyp of colon, unspecified part of colon, unspecified type 2 Bottle oral See admin instructions 02/10/2025 Active Social History Tobacco Use Types Packs/Day Years Used Date Smoking Tobacco: Never Assessed Sex and Gender Information Value Date Recorded Sex Assigned at Not on file Legal Sex Male 9:45 AM EST Gender Identity Not on file Sexual Orientation Not on file Last Filed Vital Signs Vital Sign Reading Time Taken Comments Blood Pressure - - Pulse - - Temperature - - Respiratory Rate - - Oxygen Saturation - - Inhaled Oxygen Concentration - - Weight 94.8 kg (209 lb) 01/16/2025 2:12 PM EDT Height 177.8 cm (5' 10 ) 01/16/2025 2:12 PM EDT Body Mass Index 29.99 01/16/2025 2:12 PM EDT Plan of Treatment Health Maintenance Due Date Last Done Comments Hepatitis A Vaccines (1 of 2 - Risk 2-dose series) 1966 Hepatitis B Vaccines (1 of 3 - Risk 3-dose series) 2007 Depression Screening 10/29/2024 Cholesterol Screening (Lipid Panel) 12/18/2024 Falls Risk Assessment 12/18/2024 Hepatitis C Screening 12/18/2024 Medicare Annual Wellness Visit 12/18/2024 Social Influencers of Health Screening 12/18/2024 COVID-19 Vaccine (7 - 2025-26 season) 2025 08/03/2023, 08/23/2022, 02/17/2022, Additional history exists Influenza Vaccine (#1) 2025 , 08/07/2024, 07/29/2023, Additional history exists Hypertension/CHF/CAD Annual BMP Blood Test 01/16/2026 01/16/2025 DTaP,Tdap,and Td Vaccines (3 - Td or Tdap) 11/08/2033 11/08/2023, 03/02/2011 Zoster Vaccines Completed 07/22/2022, 04/28, 06/29/2013 Pneumococcal Vaccine: 50+ Years Completed 09/22/2023, 07/18/2016, 11/13/2012, Additional history exists RSV Immunization Adult Patients Completed 10/06/2023 HIB Vaccines Aged Out No longer eligi [...] age to complete this topic Meningococcal B Vaccine Aged Out No l onger eligible based on patient's age to complete this topic RSV Immunization Patients Under 20 months Aged Out No longer eligible based on patient's age to complete this topic Varicella Vaccines Aged Out No longer eligible based on patient's age to complete this topic Procedures Procedure Name Priority Date/Time Associated Diagnosis Comments COMPREHENSIVE METABOLIC PANEL Routine 01/16/2025 3:02 PM EDT Iron deficiency anemia, unspecified iron deficiency anemia type Adenomatous polyp of colon, unspecified part of colon from Last 3 Months or Most Recently Relevant to Health Maintenance Results * (ABNORMAL) Comprehensive metabolic panel (01/16/2025 3:02 PM EDT) Sodium 137 133 - 145 mmol/L LAB CHEMISTRY METHOD 01/16/2025 4:18 PM EDT [facility] Potassium 4.4 3.5 - 5.5 mmol/L LAB CHEMISTRY METHOD 01/16/2025 4:18 PM [facility] Chloride 102 96 - 110 mmol/L LAB CHEMISTRY METHOD 01/16/2025 4:18 PM [facility] CO2 32 21 - 32 mmol/L LAB CHEMISTRY METHOD 01/16/2025 4:18 PM [facility] Anion Gap 3 3 - 11 LAB CHEMISTRY METHOD 01/16/2025 4:18 PM [facility] Glucose 137(H) 70 - 100 mg/dL LAB CHEMISTRY METHOD 01/16/2025 4:18 PM [facility] BUN 19 5 - 25 mg/dL LAB CHEMISTRY METHOD 01/16/2025 4:18 PM [facility] Creatinine 1.26 0.70 - 1.30 mg/dL LAB CHEMISTRY METHOD 01/16/2025 4:18 PM [facility] eGFR 59(L) >=60 mL/min/1. 73m2 LAB CHEMISTRY METHOD 01/16/2025 4:18 PM [facility] Comment:Calculation based on the Chronic Kidney Disease Epidemiology Collaboration (CKD-EPI) equation refit without adjustment for race. BUN/Creatinine Ratio 15.1 LAB CHEMISTRY METHOD 01/16/2025 4:18 PM [facility] Calcium 9.3 8.5 - 10.5 mg/dL LAB CHEMISTRY METHOD 01/16/2025 4:18 PM [facility] AST (SGOT) 20 10 - 42 unit/L LAB CHEMISTRY METHOD 01/16/2025 4:18 PM [facility] ALT (SGPT) 24 10 - 60 unit/L LAB CHEMISTRY METHOD 01/16/2025 4:18 PM [facility] Alkaline Phosphatase 110 42 - 121 unit/L LAB CHEMISTRY METHOD 01/16/2025 4:18 PM [facility] Total Protein 7.5 6.0 - 8.0 g/dL LAB CHEMISTRY METHOD 01/16/2025 4:18 PM EDT [facility] Albumin 4.0 3.2 - 5.0 g/dL LAB CHEMISTRY METHOD 01/16/2025 4:18 PM EDT [facility] Total Bilirubin 0.4 0.0 - 1.4 mg/dL LAB CHEMISTRY METHOD 01/16/2025 4:18 PM EDT [facility] Blood Venous blood specimen / Unknown Venipuncture / Unknown 01/16/2025 3:02 PM EDT 01/16/2025 3:42 PM EDT us Teetee Pearson TOUR SALES REPRESENTATIVE LAB BLOOD ORDERABLES Final Re sult [facility] [address] [place] [address], from Last 3 Months or Most Recently Relevant to Health Maintenance Insurance MEDICARE [facility] Care Teams Fruit Packer Face And Fill Relationship Specialty Start Date End Date Aristeo Adan MD [address] [place] [id number] PCP - General Internal Medicine 12/18/24
== END 2025-07-31 10:20 | disposition home or self-care (01) ==
PROVIDERS: PCP Internal Medicine; Visit Provider Psychiatry & Neurology Neurology
DX: G25.2 Other specified forms of tremor (principal); R26.9 Unspecified abnormalities of gait and mobility
CPT/HCPCS: 99214

== ENCOUNTER → 2025-07-31 09:53 | Outpatient (BNVA) | payer MEDICARE, SELFPAY | PROVIDERS: PCP Internal Medicine; Visit Provider Psychiatry & Neurology Neurology | DX: G25.2 Other specified forms of tremor (principal); R26.9 Unspecified abnormalities of gait and mobility | CPT/HCPCS: 99212 ==